=== PATIENT | male | born 1990 | race African-American/Black ===

== ENCOUNTER 2016-05-05 02:45 | Emergency (ER) | payer BC ==
[2016-05-05 03:35] LABS: Hematocrit 43 % (42-52); Hemoglobin 14.4 g/dl (14.0-18.0); Mean Corpuscular HGB Conc 34 g/dl (31-36); Mean Corpuscular Hemoglobin 31 pg (27-31); Mean Corpuscular Volume 92 fL (80-94); Mean Platelet Volume 8 um3 (7.4-10.4); Red Blood Count 4.67 10^6/ul (4.0-5.4); Red Cell Distribution Width 14 % (10.5-15); White Blood Count 5.7 10^3/ul (3.5-10.8)
[2016-05-05 03:49] LABS: Acetaminophen < 15 mcg/mL; Alcohol < 10 mg/dL (<10); Salicylate < 2.50 mg/dL (<30)
[2016-05-05 03:50] LABS: ALT 14 U/L (7-52); Albumin 4.3 g/dL (3.2-5.2); Alkaline Phosphatase 73 U/L (34-104); BUN/Creatinine Ratio 14.3 (8-20); Blood Urea Nitrogen 15 mg/dL (6-24); CO2 Carbon Dioxide 28 mmol/L (22-32); Calcium 10.1 mg/dL (8.6-10.3); Chloride 101 mmol/L (101-111); EGFR African American 112.6 (>60); EGFR Non-African American 87.5 (>60); Globulin 4.1 g/dL (2-4); Glucose 101 mg/dL (70-100); Sodium 135 mmol/L (133-145); Total Protein 8.4 g/dL (6.4-8.9)
[2016-05-05 03:52] LABS: AST 14 U/L (13-39); Anion Gap 6 mmol/L (2-11); Potassium 3.8 mmol/L (3.5-5.0)
[2016-05-05 04:42] LABS: TSH (Thyroid Stimulating Horm) 0.55 mcIU/mL (0.34-5.60)
--- NOTE | 2016-05-05 06:45 | ED ---
theresa Parisi Timothy, scribed for Jd Allen on 05/05/16 at 0301 . Psychiatric Complaint - HPI Summary HPI Summary: Travis Chopra is a 25 yo male presenting to [facility] with SI. Pt states "I want to , and I don't want to talk about it". He denies any plan. 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 His MHx includes asthma, ADHD, PTSD, schizophrenia, bipolar disorder, depression, anxiety, substance abuse, suicide attempt, ODD. He is a tobacco smoker, and uses heroin. - History Of Current Complaint Time Seen by Provider: 05/05/16 03:01 Hx Obtained From: Patient Onset/Duration: Gradual Onset Timing: Constant Severity Initially: Moderate Severity Currently: Moderate Character: Depressed Related History: Positive For: Prior Psychiatric Issues - Allergies/Home Medications Allergies/Adverse Reactions: Allergies Allergy/AdvReac Type Severity Reaction Status Date / Time No Known Allergies Allergy Verified 03/12/16 14:40 PMH/Surg Hx/FS Hx/Imm Hx Endocrine/Hematology History: Denies: Hx Anticoagulant Therapy, Hx Diabetes Cardiovascular History: Denies: Hx Hypertension Respiratory History: Reports: Hx Asthma - No treatment for "years" Psychiatric History: Reports: Hx Anxiety, Hx Attention Deficit Hyperactivity Disorder, Hx Depression, Hx Post Traumatic Stress Disorder, Hx Inpatient Treatment, Hx Community Mental Health Tx, Hx Schizophrenia, Hx Bipolar Disorder , Hx Suicide Attempt, Hx of Violent Episodes Against Others, Hx Substance Abuse , Other Psychiatric Issues/Disorders - ODD Denies: Hx Eating Disorder - Immunization History Date of Tetanus Vaccine: unable to obtain Date of Influenza Vaccine: unable to obtain Infectious Disease History: No Infectious Disease History: Denies: Traveled Outside the [place] in Last 30 Days - Family History Known Family History: Positive: Unknown - adopted - Social History Alcohol Use: None Alcohol Amount: drinks a couple of times per month Substance Use Type: Reports: Heroin Substance Use Comment - Amount & Last Used: 0200 05/05/16 Hx Tobacco Use: Yes Smoking Status (MU): Light Every Day Tobacco Smoker Type: Cigarettes Length of Time of Smoking/Using Tobacco: 1/2 ppd X 6 years Review of Systems Constitutional: Negative Eyes: Negative ENT: Negative Cardiovascular: Negative Respiratory: Negative Gastrointestinal: Negative Genitourinary: Negative Musculoskeletal: Negative Skin: Negative Neurological: Negative Positive: Depressed All Other Systems Reviewed And Are Negative: Yes Physical Exam Triage Information Reviewed: Yes Vital Signs On Initial Exam: Initial Vitals Temp Pulse Resp BP Pulse Ox 97.5 F 75 18 123/72 99 05/05/16 02:48 05/05/16 02:48 05/05/16 02:48 05/05/16 02:48 05/05/16 02:48 Vital Signs Reviewed: Yes Appearance: Positive: Well-Appearing, No Pain Distress, Well-Nourished Skin: Positive: Warm, Skin Color Reflects Adequate Perfusion, Dry Head/Face: Positive: Normal Head/Face Inspection Eyes: Positive: EOMI, RAMIRO ENT: Positive: Normal ENT inspection Neck: Positive: Supple, Nontender Respiratory/Lung Sounds: Positive: Clear to Auscultation, Breath Sounds Present Cardiovascular: Positive: RRR, Pulses are Symmetrical in both Upper and Lower Extremities Abdomen Description: Positive: Nontender, Soft Bowel Sounds: Positive: Present Musculoskeletal: Positive: Normal, Strength/ROM Intact Neurological: Positive: Normal, Sensory/Motor Intact, Alert, Oriented to Person Place, Time Psychiatric: Positive: Depressed - Yue Coma Scale Coma Scale Total: 15 Diagnostics - Vital Signs Vital Signs Temp Pulse Resp BP Pulse Ox 05/05/16 02:48 97.5 F 75 18 123/72 99 - Laboratory Lab Results: Lab Results 05/05/16 05/05/16 Range/Units 03:06 03:06 WBC 5.7 (3.5-10.8) 10^3/ul RBC 4.67 (4.0-5.4) 10^6/ul Hgb 14.4 (14.0-18.0) g/dl Hct 43 (42-52) % MCV 92 (80-94) fL MCH 31 (27-31) pg MCHC 34 (31-36) g/dl RDW 14 (10.5-15) % Plt Count 259 (150-450) 10^3/ul MPV 8 (7.4-10.4) um3 Neut % (Auto) 58.4 (38-83) % Lymph % (Auto) 28.9 (25-47) % Casey % (Auto) 10.8 H (1-9) % Eos % (Auto) 1.3 (0-6) % Baso % (Auto) 0.6 (0-2) % Absolute Neuts (auto) 3.4 (1.5-7.7) 10^3/ul Absolute Lymphs (auto) 1.7 (1.0-4.8) 10^3/ul Absolute Monos (auto) 0.6 (0-0.8) 10^3/ul Absolute Eos (auto) 0.1 (0-0.6) 10^3/ul Absolute Basos (auto) 0 (0-0.2) 10^3/ul Absolute Nucleated RBC 0.01 10^3/ul Nucleated RBC % 0.1 Sodium 135 (133-145) mmol/L Potassium 3.8 (3.5-5.0) mmol/L Chloride 101 (101-111) mmol/L Carbon Dioxide 28 (22-32) mmol/L Anion Gap 6 (2-11) mmol/L BUN 15 (6-24) mg/dL Creatinine 1.05 (0.67-1.17) mg/dL Est GFR ( Amer) 112.6 (>60) Est GFR (Non-Af Amer) 87.5 (>60) BUN/Creatinine Ratio 14.3 (8-20) Glucose 101 H (70-100) mg/dL Calcium 10.1 (8.6-10.3) mg/dL Total Bilirubin 0.30 (0.2-1.0) mg/dL AST 14 (13-39) U/L ALT 14 (7-52) U/L Alkaline Phosphatase 73 (34-104) U/L Total Protein 8.4 (6.4-8.9) g/dL Albumin 4.3 (3.2-5.2) g/dL Globulin 4.1 H (2-4) g/dL Albumin/Globulin Ratio 1.0 (1-3) TSH 0.55 (0.34-5.60) mcIU/mL Salicylates < 2.50 (<30) mg/dL Acetaminophen < 15 mcg/mL Serum Alcohol < 10 (<10) mg/dL Result Diagrams: 05/05/16 03:06 05/05/16 03:06 Lab Statement: Any lab studies that have been ordered have been reviewed, and results considered in the medical decision making process. Course/Dx - Course Assessment/Plan: Travis Chopra is a 25 yo male presenting to [facility] for SI. He is cleared for [facility] at 0617. He will be signed out to Dr. Diamond pending [facility]UE. - Differential Dx/Clinical Impression Provider Diagnosis: Suicidal ideation Discharge - Discharge Plan Condition: Stable Disposition: OTHER Discharge Disposition Comment: Sign out to Dr. Diamond pending [facility] Referrals: No Primary Care Phys,NOPCP [Primary Care Provider] - The documentation as recorded by the theresa coleman Timothy accurately reflects the service I personally performed and the decisions made by , Jd Allen.
[2016-05-05 07:53] LABS: Urine Bacteria Absent (Absent); Urine Bilirubin Negative (Negative); Urine Glucose Negative (Negative); Urine Nitrite Negative (Negative)
[2016-05-05 08:05] LABS: Benzodiazepine Urine Screen None Detected (None Detect)
[2016-05-05 08:53] VITALS: BP 125/87
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
== END 2016-05-05 11:34 | disposition home or self-care (01) ==
LOC: ED 02:45
DX: R45.851 Suicidal ideations (principal); F17.210 Nicotine dependence, cigarettes, uncomplicated
CPT/HCPCS: 36415; 80053; 80307; 80320; 80329; 81003; 81015; 84443; 85025; 99282; G0480

== ENCOUNTER 2016-05-15 12:08 | Inpatient (IN) | payer BC ==
[2016-05-15] MEDS ORDERED: LORazepam INJ* 2 MG/ML 1 ML VIAL IM ONE (12:45)
[2016-05-15] MEDS ORDERED: diPHENhydraMINE IV* 50 MG/ML 1 ml VIAL (BENADRYL) IM ONE (12:45)
[2016-05-15] MEDS ORDERED: Haloperidol INJ IV/IM* 5 MG/ML AMP IM ONE (12:45)
[2016-05-15 13:15] LABS: Hematocrit 46 % (42-52); Hemoglobin 15.5 g/dl (14.0-18.0); Mean Corpuscular HGB Conc 34 g/dl (31-36); Mean Corpuscular Hemoglobin 31 pg (27-31); Mean Corpuscular Volume 91 fL (80-94); Mean Platelet Volume 8 um3 (7.4-10.4); Red Cell Distribution Width 14 % (10.5-15); White Blood Count 5.7 10^3/ul (3.5-10.8)
[2016-05-15 13:18] LABS: Urine Bilirubin Negative (Negative); Urine Glucose Negative (Negative); Urine Nitrite Negative (Negative)
[2016-05-15 13:26] LABS: ALT 17 U/L (7-52); AST 19 U/L (13-39); Albumin 4.8 g/dL (3.2-5.2); Alkaline Phosphatase 80 U/L (34-104); Anion Gap 8 mmol/L (2-11); BUN/Creatinine Ratio 7.7 (8-20); Blood Urea Nitrogen 8 mg/dL (6-24); CO2 Carbon Dioxide 26 mmol/L (22-32); Calcium 10.6 mg/dL (8.6-10.3); Chloride 103 mmol/L (101-111); EGFR African American 113.8 (>60); EGFR Non-African American 88.5 (>60); Globulin 4.2 g/dL (2-4); Glucose 83 mg/dL (70-100); Sodium 137 mmol/L (133-145)
[2016-05-15 13:56] LABS: Acetaminophen < 15 mcg/mL; Alcohol < 10 mg/dL (<10); Salicylate < 2.50 mg/dL (<30)
[2016-05-15 14:06] LABS: TSH (Thyroid Stimulating Horm) 0.72 mcIU/mL (0.34-5.60)
[2016-05-15 15:46] LABS: Benzodiazepine Urine Screen None Detected (None Detect)
[2016-05-16] MEDS: Vitamin THERAPEUTIC TAB PO SCH (09:50)
--- NOTE | 2016-05-16 20:43 | HP ---
HISTORY AND PHYSICAL: DATE OF ADMISSION: JUSTIFYING FOR ADMISSION: The patient is in need of 24-hour supervision and care secondary to suici justin ideations voiced within 72 hours of admission day. CHIEF COMPLAINT: "Get the fuck out of here." HISTORY OF PRESENT ILLNESS: The patient is a 25-year-old single -Italian male with a histor y of chronic polysubstance abuse who arrived at our hospital via the police after his parents called 911 when he had taken rat poisoning out of their cupboard and threatened to inject it into one of h is veins in a suicide attempt. The patient is well known to me having been on my service in [facility] 2015. At that time, he was stabilized by detoxifying him off of heroin and other opioids. It is notable that he does not experience affective problems when he is clean and sober from drugs. At any rate, at the time he was referred to the [facility] in [place], [place]. Unfortunately, he only lasted there 6 days before signing himself out against medical advice stating that he was craving heroin. He quickly relapsed on heroin and since then, has been using no t only opioids, but also bath salts, amphetamine pills, cocaine, cannabis, "anything I can get my ellington nds on." When asked why he might want to end his life, he does indicate that his parents both have been diagnosed with cancer and he cannot deal with their mortality and feels he would be better off dying before they do. It is notable that he was also in our emergency room on 05/05/16 with similar presentation; however, at that time, I was able to evaluate him in our emergency room and he made i t clear that he was not interested in drugs abuse recovery and therefore, I did not feel that hospit alization would be of any benefit to him. He has not been following up with any outpatient substanc e abuse treatment in the community. He lives in a trailer outside of his parents home because they are afraid to let him in given his tendency to steal items from their house to sell for drugs. At t his point, the patient is found lying down in his bed where he has remained all day. He is irritabl e, angry, hostile, and unwilling to participate with this interview. PAST MEDICAL HISTORY: Noncontributory. PAST PSYCHIATRIC HISTORY: His last hospitalization here was in February of 2016. Previous to this, he has hospitalizations in 2014, 2014, 2013, and two admissions in 2008. His past diagnoses include substance abuse mood disorder and substance abuse psychotic disorder. Past medication trials inclu de Abilify, Risperdal, Concerta, Strattera, and Wellbutrin. Nothing has been helpful according to t he family. The patient essentially has chronic suicidal ideations. According to the records, most of his suicidality has been fairly malingered. FAMILY PSYCHIATRIC HISTORY: The biological mother has had a history of substance abuse problems her self. SOCIAL HISTORY: The patient is currently homeless. He has had multiple incarcerations and was rece ntly in half-way for 8 months. He was adopted and raised in [place], [place]. Previously reported zachary g 10 siblings. He was educated with an IEP in special education to about the 10th or 11th grade, bu t he has not received a diploma or a GED. He does have a 4-year-old son who lives with maternal gra ndparents. He has been minimally in contact with this child. In the past, he has worked with [employer]. Most recently, [facility] has been homeless [facility] SUBSTANCE ABUSE HISTORY: The patient typically does cannabis, but has also used alcohol, bath salts , synthetic marijuana, cocaine, and heroin. He will often use IV drugs. He has had outpatient subs tance abuse counseling as well as inpatient treatment most recently at the [facility] in [place]. REVIEW OF SYSTEMS: The patient denies headache or double vision. He denies sore throat, cough, с[address] pain, or difficulty breathing. He denies abdominal pain, nausea, vomiting, although he does comp ami of mild diarrhea secondary to drug withdrawal. He denies difficulty ambulating, rashes, enlarg ed lymph nodes, fevers, or changes in weight. PHYSICAL EXAMINATION VITAL SIGNS: Blood pressure 99/52, heart rate 49, temperature 98.7 degrees Fahrenheit, respiratory rate is 16, and oxygen saturations are 97% on room air. HEENT: Head is normocephalic, atraumatic. NECK: Supple. CHEST: Clear to auscultation bilaterally. ABDOMEN: Soft and nontender. MUSCULOSKELETAL: Exam reveals full range of motion with all 4 extremities. NEUROLOGICAL: He is grossly intact. SKIN: Warm and dry. MENTAL STATUS EXAM: The patient is a healthy-appearing, dark skinned, mid 20s, -Italian ma le with apparently normal hygiene. He is in hospital scrub, lying down in a prone position. He has normal psychomotor activity. Eye contact is poor. He is minimally cooperative. Speech is terse a nd not spontaneous. Mood is described as "bad." Affect is constricted, dysphoric, irritable. Thou ght process is impoverished. Thought content is significant for wishes. There are no active suicidal ideations. There are no homicidal or paranoid ideations. Sensorium is clear. He is alert and oriented x3. Insight and judgment is poor and impulse control is tenuous. LABORATORY DATA: Complete blood count is within normal limits. Complete metabolic panel is similar ly within normal limits. TSH is normal at 0.72. Urinalysis is within normal limits. Urine drug sc reen is positive for opioids, cocaine, and cannabis. DIAGNOSES: As follow: Smackover I: Opioid-induced mood disorder, opioid use disorder, cocaine use disorder, cannabis use diso rder, rule out malingering. Smackover II: Antisocial personality traits. Smackover III: None. Smackover IV: Moira re legal, primary, support, housing stressors. Smackover V: At this time is 47. IMPRESSION: The patient is a 25-year-old substance abusing sociopathic male who has been kicked out of his parents' house, who now is being sent via the police after making a threat to his parents th at he would inject rat poisoning in an effort to hurt himself. It is clear at this point that he is not only lacking a place to stay, but has no money to procure drugs and is going through opioid wit hdrawal. In the recent past, he has been unwilling to follow through with definitive substance abus e treatment and it is unclear whether he is or is not at this time. I think we will monitor him for symptoms of withdrawal and use p.r.n. Thorazine if he starts becoming agitated. I am not sure what we can do given the chronic nature of his suicidality and his insistence on continued drug use. If he is, however, willing to go to rehab, then we would certainly facilitate this. PLAN: The patient is admitted to the adult behavioral health unit where he is placed on q.15-minute checks for his own safety. We will continue to monitor him and keep him safe. Essentially it woul d be up to him whether he wants to pursue inpatient substance abuse treatment or not. If he is not interested in this, then we will likely discharge him to a local [facility]ci. [id number]/CPS #: [id number]
[2016-05-16] MEDS: Acetaminophen TAB* 325 MG PO PRN (21:06)
[2016-05-16] MEDS: chlorproMAZINE TAB* 100 MG PO PRN (21:06)
[2016-05-17] MEDS: chlorproMAZINE TAB* 100 MG PO PRN ×2 (08:42→18:01)
[2016-05-17] MEDS: Acetaminophen TAB* 325 MG PO PRN (08:43)
[2016-05-17] MEDS: Vitamin THERAPEUTIC TAB PO SCH (08:43)
[2016-05-17] MEDS ORDERED: Nicotine Inhaler* 10 MG AMP INH PRN (17:28)
[2016-05-17] MEDS ORDERED: Mouth Piece, Nicotine* 1 EACH CARTRIDGE INH ONE (17:30)
[2016-05-18] MEDS: chlorproMAZINE TAB* 100 MG PO PRN ×2 (09:19→15:39)
[2016-05-18] MEDS: Vitamin THERAPEUTIC TAB PO SCH (10:49)
--- NOTE | 2016-05-18 12:11 | PN ---
Subjective - Subjective Service Type: 75248 Hosp care 25 min moderate complexity Subjective: Shira reports feeling better than at admission and says he feels good about being alive again. He tells me he did contemplate injecting rat poison prior to admission, over a brief period only, and the poison had been available. He denied buying it for the purpose of an attempt, denies planning ahead for it , and says he feels he was not terribly close to acting on it. He said it was precipitated by a bad nights sleep and a recent arrest by law enforcement. He reports principally using heroin, but also mixing in other drugs. He denies any felt need for psychiatric medications. He notes subjective progress through withdrawal, and said his goals for hospitalization are met. He submitted a "72 hour letter" but made clear with me it is not a demand for immediate release - he would like to go home soon but accepted recommendation for consolidating gains, and said he was "fine chilling here" - he said he would not go to groups, and he asked for assistance with laundry. I made motivational interventions. He assesses sobriety as a priority, and recognizes deficits in his capacity to attain it, but is somewhat dismissive of help and structured treatment. He says his plan is to continue using drugs until later this months, when he starts a residential term. In residential he said he may have access to heroin, but if he doesn't it will be a starting point for sobriety. Objective - Appearance Appearance: Well Developed/Nourished Dysmorphic Features: Yes Hygiene: Normal Grooming: Well Kept - Behavior Psychomotor Activities: Normal - Attitude and Relatedness Attitude and Relatedness: Superficially Cooperative - casually related Eye Contact: Good - Speech Quality: Unpressured Latencies: Normal Quantity: Appropriate - Mood Patient's Decription of Mood: "Irritable" - Affect Observed Affect: Labile Affect Consistent with: Euthymia - Thought Process Patient's Thought Process: Coherent, Goal Directed Thought Content: No Passive Wish, No Suicidal Planning, No Homicidal Ideation, No Paranoid Ideation - Sensorium Experiencing Hallucinations: No, Sensorium is Clear - Level of Consciousness Level of Consciousness: Alert - Impulse Control Impulse Control: Intact - Insight and Judgement Insight and Judgement: Fair Assessment - Assessment Merits Inpatient Hospitalization: To Initiate Treatment, For Ongoing Evaluation , Consolidate Improvements, For Discharge Planning, Pending Safe DC Plan Inpatient DSM-IV Dx: Opioid (polysubstance) use disorder with induced mood symptoms with onset during intoxication; historic diagnosis of concern for intellectual disability; chronic mood disorder; chronic psychotic vulnerability ; also consider personality disorder traits. Clinical Impression: Welpte-zvpph-przy-old with a history of chronic affect dysregulation, violence and suicidal behavior, chronic substance use disorders and consideration for intellectual disability. He was admitted due to concern over suicidal behavior (preparing injection of Rat poison) in the subacute setting of uncontrolled substance use and ongoing legal problems. Stabilized here. Does not have symptoms of a major mood episode, and is not psychotic, is no longer impaired. Is safe on checks, free of ongoing suicidal ideation. Has not required medical detoxification. Was again in a clear substance induced crisis. Anticipate discharge tomorrow, consolidating improvements. Prognosis is poor due to high risk of ongoing drug use. Rehabilitation programming would be appropriate but would require voluntary participation. Plan - Plan Treatment Plan: Name: SHIRA SWANSON Birthdate: 1990 [id number] Medications: Current Medications Acetaminophen (Tylenol Tab*) 650 mg PO Q4H PRN PRN Reason: PAIN or TEMP > 101 F Last Admin: 05/17/16 08:43 Dose: 650 mg Al Hydrox/Mg Hydrox/Simethicone (Maalox Plus*) 30 ml PO Q4H PRN PRN Reason: INDIGESTION Chlorpromazine HCl (Thorazine Tab*) 100 mg PO Q6H PRN PRN Reason: AGITATION Last Admin: 05/18/16 09:19 Dose: 100 mg Multivitamins (Theragran Tab*) 1 tab PO DAILY ASHLEY Last Admin: 05/18/16 10:49 Dose: 1 tab Nicotine (Nicotine Inhaler*) 10 mg INH Q2H PRN PRN Reason: CRAVINGS Last Admin: 05/17/16 18:03 Dose: 10 mg - Discharge Plan Discharge Plan: Drug/Alcohol Rehab
[2016-05-19] MEDS: Al Hydrox/Mg Hydrox/Simet LIQ* 30 ML UDC PO PRN ×3 (04:20→12:13)
[2016-05-19] MEDS: chlorproMAZINE TAB* 100 MG PO PRN (07:25)
[2016-05-19 07:26] VITALS: BP 136/74
[2016-05-19] MEDS: Vitamin THERAPEUTIC TAB PO SCH (08:33)
--- NOTE | 2016-05-19 12:16 | DS ---
DISCHARGE SUMMARY: DATE OF ADMISSION: 05/16/16 DATE OF DISCHARGE: 05/19/16 DISCHARGE DIAGNOSES: As follows: [place] I: Opioid-induced mood disorder, opioid use disorder, cocaine use disorder, cannabis use diso rder, rule out malingering. [place] II: Antisocial personality traits. [place] III: None. [place] IV: Sev ere legal, primary, support, and housing stressors. Ed[place] V: At the time of admission was 47 and at the time of discharge is 62. CONDITION AT THE TIME OF DISCHARGE: Improved. The patient's initial crisis, which was clearly drug induced is now resolved. He is reporting that he feels good about being alive again. He is future oriented, stating that he will be serving a mandatory fci sentence soon and will need to be sober because of that. He is willing to follow up with outpatient treatment and his appointments are in p lace including an appointment as soon as tomorrow at [facility]. The kristina ent steadfastly denies suicidal ideations stating that even prior to hospitalization, he was not nec essarily serious about suicide. He has signed a release against medical advice and we have no legal justification to keep him any further. MENTAL STATUS EXAM: At the time of discharge, the patient is a healthy appearing, dark skinned, mid 20s -German male wearing a T-shirt and jeans with good hygiene. He has been social on the unit, joking with peers, smiling. He has normal psychomotor activity. Eye contact is fair. He is cooperative. Speech has normal rate, tone, and volume. Mood is euthymic with a bright affect. Th ought process is linear, goal directed. Thought content is significant for his desire to be dischar ged from the hospital. He is denying suicidal or homicidal ideations. He denies auditory or visual hallucinations. Insight is somewhat limited given the fact that he is telling me that he will denise nue to abuse heroin after discharge and he is denying substance abuse treatment at this time. Cogni tively, he is awake and alert with what would appear to be an average intellect. DISCHARGE INSTRUCTIONS: To the patient are as follows: A. Medications, none. B. Diet is regular. C. Activities as tolerated. The patient is strongly en couraged to abstain from tobacco products; however, he is declining the offer of continued nicotine replacement therapy in the community setting, indicating his preference to continue smoking cigarett es for the time being. Similarly, he is advised to discontinue illicit substance abuse; however, he is similarly not interested in substance abuse treatment at this time. D. Followup care. The kristina ent has an appointment with Rani Duenas at [facility] on May 20 a t 1:45 p.m. He also has an appointment with Dr. Olena Gamino at [facility], rajwinder silver is on June 10 at 10 a.m. It should be noted that we have made multiple offers to re radha him to substance abuse treatment both on inpatient and outpatient varieties; however, he is stea dfastly declining these. HOSPITAL COURSE: PART-A Reason for admission: The patient is a 25-year-old single -German male with a history of chronic polysubstance abuse who arrived at our hospital via the police after his parents called 911 when he had taken rat poisoning out of the cupboard and threatened to inject it into one of his veins in a suicide attempt. The patient is well known to me, having been on my se rvice in February 2016. At that time, he was stabilized by detoxifying him off heroin and other opi oids. It is notable that he does not experience affective problems when he is clean and sober from drugs. At any rate, at that time in February, he was referred to the [facility] [place], [place]. Unfortunately, he only lasted there 6 days before signing himself out against me dical advice stating that he was craving heroin. He quickly relapsed on heroin and since then, has been using not only opioids, but also bath salts, amphetamine pills, cocaine, and cannabis, "anythin g I can get my hands on." When asked why he might want to end his life, he does indicate that his p arents both have been diagnosed with cancer and he cannot deal with their mortality and feels that h e would be better off dying before they do. It is notable that he was also in our emergency room on 05/05/16 with a similar presentation; however, at that time I was able to evaluate him in our emerg ency room and he made it clear that he was not interested in substance abuse recovery and therefore, we did not feel that hospitalization would be of any benefit to him. He has not been following up with any outpatient substance abuse treatment in the community. He lives in a trailer outside of hi s parents' home because they are afraid of letting him inside the residence given his tendency to st eal items from their house in order to sell for drug money. At this point, the patient was found ly ing down in his bed where he has remained all day. He is irritable, angry, hostile, and unwilling t o participate in this interview. PART-B Psychiatric treatment rendered: The patient was admitted to the hospital and placed on q.30 minute checks for his own safety. He almost immediately signed paperwork requesting discharge from the hospital indicating that he was no longer experiencing suicidality. We did allow him some time to detoxify from opioids; however, no medication therapy was needed. The patient refused to accept recommendations for referral to a substance abuse facility indicating that he was not interested in stopping drug use at this point. He is future oriented indicating that he would like to serve a [facility] fci sentence at the [facility] fci later this month and then he will apply for classes in the summer time. He was willing to accept a referral to [facility]. At this poi nt, he does not show evidence of a major mood episode. He is not psychotic. He is no longer impair ed. He is safe on all checks and free of ongoing suicidal ideations. He has not required medical de toxification and he is clear from his substance- induced crisis. We are currently discharging him. I would say that his prognosis is poor due to the high risk of ongoing drug use. Rehabilitation se [facility] would be appropriate, but it would require his voluntary participation which he is unwilling to consent to at this time. Therefore, he is discharged back to the community with [facility]. [id number]/[facility] #: [id number]
--- NOTE | 2016-06-09 11:13 | ED ---
Ailin, DoctorRuchi, scribed for Lenny Zaidi MD on 05/15/16 at 1403 . Psychiatric Complaint - HPI Summary HPI Summary: 25 year old male arrived to [facility] on for "trying to inject rat poison," reported by his family. Patient is a heroin addict, is not currently taking Suboxone. HPI limited due to patient's unwillingness to answer physician' s questions. - History Of Current Complaint Chief Complaint: EDMentalHealth Time Seen by Provider: 05/15/16 12:33 Hx Obtained From: Patient Hx From Patient Unobtainable Due To: Other - Patient's unwillingness to answer physician's questions Related History: Positive For: Prior Psychiatric Issues, Drug Abuse Counseling Has Suicidal: Reports: With A Plan - reportedly tried to inject rat poison - Allergies/Home Medications Allergies/Adverse Reactions: Allergies Allergy/AdvReac Type Severity Reaction Status Date / Time No Known Allergies Allergy Verified 03/12/16 14:40 PMH/Surg Hx/FS Hx/Imm Hx Endocrine/Hematology History: Denies: Hx Anticoagulant Therapy, Hx Diabetes Cardiovascular History: Denies: Hx Hypertension Respiratory History: Reports: Hx Asthma - No treatment for "years" Psychiatric History: Reports: Hx Anxiety, Hx Attention Deficit Hyperactivity Disorder, Hx Depression, Hx Post Traumatic Stress Disorder, Hx Inpatient Treatment, Hx Community Mental Health Tx, Hx Schizophrenia, Hx Bipolar Disorder , Hx Suicide Attempt, Hx of Violent Episodes Against Others, Hx Substance Abuse , Other Psychiatric Issues/Disorders - ODD Denies: Hx Eating Disorder - Immunization History Date of Tetanus Vaccine: unable to obtain Date of Influenza Vaccine: unable to obtain Infectious Disease History: No Infectious Disease History: Denies: Traveled Outside the US in Last 30 Days - Family History Known Family History: Positive: None - adopted, Unknown - adopted - Social History Alcohol Use: None Alcohol Amount: drinks a couple of times per month Hx Substance Use: Yes Substance Use Type: Reports: Heroin Substance Use Comment - Amount & Last Used: $20/day IV heroin for the past month , prior to that he was clean for 8 mo. Hx Tobacco Use: Yes Smoking Status (MU): Light Every Day Tobacco Smoker Type: Cigarettes Length of Time of Smoking/Using Tobacco: 1/2 ppd X 6 years Review of Systems - ROS Summary Review of Systems Summary: Full ROS unobtainable due to patient's unwillingness to answer questions Negative: Fever Positive: Other - unwilling to answer questions All Other Systems Reviewed And Are Negative: No Physical Exam - Summary Physical Exam Summary: PE limited due to patient's unwillingness to answer physician's questions Triage Information Reviewed: Yes Vital Signs On Initial Exam: Initial Vitals Temp Pulse Resp BP Pulse Ox 98.2 F 54 16 114/56 100 05/15/16 12:31 05/15/16 12:31 05/15/16 12:31 05/15/16 12:31 05/15/16 12:31 Vital Signs Reviewed: Yes Appearance: Positive: Well-Appearing, No Pain Distress Skin: Positive: Warm, Skin Color Reflects Adequate Perfusion, Dry Head/Face: Positive: Normal Head/Face Inspection Eyes: Positive: Normal ENT: Positive: Normal ENT inspection Psychiatric: Positive: Patient Uncooperative for Exam Diagnostics - Vital Signs Vital Signs Temp Pulse Resp BP Pulse Ox 05/15/16 12:31 98.2 F 54 16 114/56 100 - Laboratory Lab Results: Lab Results 05/15/16 05/15/16 05/15/16 Range/Units 12:40 13:00 13:00 WBC 5.7 (3.5-10.8) 10^3/ul RBC 5.00 (4.0-5.4) 10^6/ul Hgb 15.5 (14.0-18.0) g/dl Hct 46 (42-52) % MCV 91 (80-94) fL MCH 31 (27-31) pg MCHC 34 (31-36) g/dl RDW 14 (10.5-15) % Plt Count 260 (150-450) 10^3/ul MPV 8 (7.4-10.4) um3 Neut % (Auto) 47.0 (38-83) % Lymph % (Auto) 41.7 (25-47) % Mason % (Auto) 9.7 H (1-9) % Eos % (Auto) 1.1 (0-6) % Baso % (Auto) 0.5 (0-2) % Absolute Neuts (auto) 2.7 (1.5-7.7) 10^3/ul Absolute Lymphs (auto) 2.4 (1.0-4.8) 10^3/ul Absolute Monos (auto) 0.6 (0-0.8) 10^3/ul Absolute Eos (auto) 0.1 (0-0.6) 10^3/ul Absolute Basos (auto) 0 (0-0.2) 10^3/ul Absolute Nucleated RBC 0 10^3/ul Nucleated RBC % 0 INR (Anticoag Therapy) 1.00 (0.89-1.11) Sodium (133-145) mmol/L Potassium (3.5-5.0) mmol/L Chloride (101-111) mmol/L Carbon Dioxide (22-32) mmol/L Anion Gap (2-11) mmol/L BUN (6-24) mg/dL Creatinine (0.67-1.17) mg/dL Est GFR ( Amer) (>60) Est GFR (Non-Af Amer) (>60) BUN/Creatinine Ratio (8-20) Glucose (70-100) mg/dL Calcium (8.6-10.3) mg/dL Total Bilirubin (0.2-1.0) mg/dL AST (13-39) U/L ALT (7-52) U/L Alkaline Phosphatase (34-104) U/L Total Protein (6.4-8.9) g/dL Albumin (3.2-5.2) g/dL Globulin (2-4) g/dL Albumin/Globulin Ratio (1-3) TSH (0.34-5.60) mcIU/mL Urine Color Urine Appearance Urine pH (5-9) Ur Specific [place] (1.010-1.030) Urine Protein (Negative) Urine Ketones (Negative) Urine Blood (Negative) Urine Nitrate (Negative) Urine Bilirubin (Negative) Urine Urobilinogen (Negative) Ur Leukocyte Esterase (Negative) Urine Glucose (Negative) Salicylates (<30) mg/dL Urine Opiates Screen Presumptive positive H (None Detect) Acetaminophen mcg/mL Ur Barbiturates Screen None detected (None Detect) Ur Phencyclidine Scrn None detected (None Detect) Ur Amphetamines Screen None detected (None Detect) U Benzodiazepines Scrn None detected (None Detect) Urine Cocaine Screen Presumptive positive H (None Detect) U Cannabinoids Screen Presumptive positive H (None Detect) Serum Alcohol (<10) mg/dL 05/15/16 05/15/16 Range/Units 13:00 13:00 WBC (3.5-10.8) 10^3/ul RBC (4.0-5.4) 10^6/ul Hgb (14.0-18.0) g/dl Hct (42-52) % MCV (80-94) fL MCH (27-31) pg MCHC (31-36) g/dl RDW (10.5-15) % Plt Count (150-450) 10^3/ul MPV (7.4-10.4) um3 Neut % (Auto) (38-83) % Lymph % (Auto) (25-47) % Mason % (Auto) (1-9) % Eos % (Auto) (0-6) % Baso % (Auto) (0-2) % Absolute Neuts (auto) (1.5-7.7) 10^3/ul Absolute Lymphs (auto) (1.0-4.8) 10^3/ul Absolute Monos (auto) (0-0.8) 10^3/ul Absolute Eos (auto) (0-0.6) 10^3/ul Absolute Basos (auto) (0-0.2) 10^3/ul Absolute Nucleated RBC 10^3/ul Nucleated RBC % INR (Anticoag Therapy) (0.89-1.11) Sodium 137 (133-145) mmol/L Potassium 4.0 (3.5-5.0) mmol/L Chloride 103 (101-111) mmol/L Carbon Dioxide 26 (22-32) mmol/L Anion Gap 8 (2-11) mmol/L BUN 8 (6-24) mg/dL Creatinine 1.04 (0.67-1.17) mg/dL Est GFR ( Amer) 113.8 (>60) Est GFR (Non-Af Amer) 88.5 (>60) BUN/Creatinine Ratio 7.7 L (8-20) Glucose 83 (70-100) mg/dL Calcium 10.6 H (8.6-10.3) mg/dL Total Bilirubin 0.50 (0.2-1.0) mg/dL AST 19 (13-39) U/L ALT 17 (7-52) U/L Alkaline Phosphatase 80 (34-104) U/L Total Protein 9.0 H (6.4-8.9) g/dL Albumin 4.8 (3.2-5.2) g/dL Globulin 4.2 H (2-4) g/dL Albumin/Globulin Ratio 1.1 (1-3) TSH 0.72 (0.34-5.60) mcIU/mL Urine Color Yellow Urine Appearance Clear Urine pH 5.0 (5-9) Ur Specific [place] 1.014 (1.010-1.030) Urine Protein Negative (Negative) Urine Ketones Negative (Negative) Urine Blood Negative (Negative) Urine Nitrate Negative (Negative) Urine Bilirubin Negative (Negative) Urine Urobilinogen Negative (Negative) Ur Leukocyte Esterase Negative (Negative) Urine Glucose Negative (Negative) Salicylates < 2.50 (<30) mg/dL Urine Opiates Screen (None Detect) Acetaminophen < 15 mcg/mL Ur Barbiturates Screen (None Detect) Ur Phencyclidine Scrn (None Detect) Ur Amphetamines Screen (None Detect) U Benzodiazepines Scrn (None Detect) Urine Cocaine Screen (None Detect) U Cannabinoids Screen (None Detect) Serum Alcohol < 10 (<10) mg/dL Result Diagrams: 05/15/16 13:00 05/15/16 13:00 Lab Statement: Any lab studies that have been ordered have been reviewed, and results considered in the medical decision making process. Course/Dx - Differential Dx/Clinical Impression Provider Diagnosis: Personality disorder - Physician Notifications Instructed by Provider To: Admit As Inpatient Patient Is Medically Stable For: Psych Evaluation Discharge - Discharge Plan Condition: Improved Disposition: OTHER Discharge Disposition Comment: Pending mental health evaluation The documentation as recorded by the Doctor coleman Tahera accurately reflects the service I personally performed and the decisions made by me, Lenny Zaidi MD.
== END 2016-05-19 12:30 | disposition home or self-care (01) | DRG 773 ==
LOC: ED 12:08 → BSU 05-16 00:46
PROVIDERS: ADMIT Psychiatry & Neurology Psychiatry; ATTEND Psychiatry & Neurology Psychiatry
DX: F11.14 Opioid abuse with opioid-induced mood disorder (principal); R45.851 Suicidal ideations; F14.10 Cocaine abuse, uncomplicated; F12.10 Cannabis abuse, uncomplicated; F17.210 Nicotine dependence, cigarettes, uncomplicated; Z81.3 Family history of other psychoactive substance abuse and dependence
CPT/HCPCS: 36415; 80053; 80307; 80320; 80329; 81003; 84443; 85025; 85610; 99222; 99232; 99238; A9270-GY; G0480; J1200; J1630; J2060

== ENCOUNTER 2016-07-06 12:27 | Inpatient (IN) | payer BC ==
[2016-07-06] MEDS ORDERED: HYDROmorphone* 1 MG/ML 1 ML SYR IV ONE ×2 (13:41→17:22)
[2016-07-06] MEDS ORDERED: NS 0.9% 1000 ML* 2,000 ML IV ONE (13:41)
[2016-07-06] MEDS ORDERED: Ondansetron INJ* 2 MG/ML VIAL IV ONE (13:42)
--- NOTE | 2016-07-06 14:03 | RAD ---
Indication: Back pain. History of asthma. Tobacco use. Comparison: None. Technique: Upright AP 1345 hours Report: Clear lungs and pleural spaces. Negative for pneumothorax. The heart, pulmonary vasculature, and mediastinal contours are unremarkable. Unremarkable osseous structures and soft tissue contours. IMPRESSION: No evidence for acute intrathoracic disease.
[2016-07-06] MEDS ORDERED: HYDROmorphone* 2 MG/ML 1 ML SYR IV SLOW PU ONE (15:35)
[2016-07-06] MEDS ORDERED: LORazepam INJ* 2 MG/ML 1 ML VIAL IV PUSH ONE ×2 (15:38→20:49)
[2016-07-06 15:58] LABS: Hematocrit 38 % (42-52); Hemoglobin 12.8 g/dl (14.0-18.0); Mean Corpuscular HGB Conc 34 g/dl (31-36); Mean Corpuscular Hemoglobin 30 pg (27-31); Mean Corpuscular Volume 89 fL (80-94); Mean Platelet Volume 7 um3 (7.4-10.4); Red Cell Distribution Width 14 % (10.5-15); White Blood Count 13.1 10^3/ul (3.5-10.8)
[2016-07-06 16:19] LABS: Albumin 3.7 g/dL (3.2-5.2); BUN/Creatinine Ratio 9.3 (8-20); C Reactive Protein 223.27 mg/L (< 5.00); Calcium 9.7 mg/dL (8.6-10.3); EGFR African American 123.3 (>60); EGFR Non-African American 95.9 (>60); Potassium 4.3 mmol/L (3.5-5.0); Total Bilirubin 0.4 mg/dL (0.2-1.0); Total Protein 8.7 g/dL (6.4-8.9)
--- NOTE | 2016-07-06 16:22 | RAD ---
HISTORY: Back pain, intermittent fevers, history of IVDA COMPARISONS: None TECHNIQUE: The following sequences were obtained of the lumbar spine: Sagittal and axial T1- and T2-weighted images, coronal T2-weighted images, and sagittal STIR images. FINDINGS: SPINAL CORD, CONUS, AND CAUDA EQUINA: The visualized spinal cord, conus, and cauda equina are normal in caliber, position, and signal intensity. ALIGNMENT: There is a mild extra scoliotic curvature of the spine. VERTEBRAL BODIES: The bones are normal in signal intensity. JOINTS: Unremarkable MUSCULATURE: Unremarkable INTERVERTEBRAL DISCS: The intervertebral discs are normal in height and T2 signal AXIAL IMAGES: T12-L1: 12 L1-L2: There is no disc herniation, spinal stenosis, or neuroforaminal narrowing. L2-L3: There is no disc herniation, spinal stenosis, or neuroforaminal narrowing. L3-L4: There is no disc herniation, spinal stenosis, or neuroforaminal narrowing. L4-L5: There is no disc herniation, spinal stenosis, or neuroforaminal narrowing. L5-S1: There is no disc herniation, spinal stenosis, or neuroforaminal narrowing. SOFT TISSUES: The visualized soft tissues of the abdomen are unremarkable. OTHER: None. IMPRESSION: MILD SCOLIOSIS. OTHERWISE UNREMARKABLE MRI OF THE LUMBAR SPINE. THERE ARE NO APPRECIABLE EPIDURAL FLUID COLLECTIONS. THERE IS NO BONE EDEMA OR ENDPLATE IRREGULARITY TO SUGGEST OSTEOMYELITIS/DISCITIS
[2016-07-06] MEDS ORDERED: Cefepime(*) 2 GM in NS 0.9% 50 ML* 50 ML IVPB ONE (17:22)
[2016-07-06] MEDS ORDERED: NS 0.9% 1000 ML* 1,000 ML IV ONE (17:22)
--- NOTE | 2016-07-06 17:28 | ED ---
I, Mandeep,Lefty, scribed for Dawn Ribeiro MD on 07/06/16 at 1338 . Back Pain - HPI Summary HPI Summary: This 25 y/o male presents to ED for acute on chronic back pain since 5 weeks ago but worse since a week ago. Positive subjective fever. Pt is homeless, and he initially dismissed pain due to frequent sleeping in "uncomfortable position ". PMHx includes IVDA with methadone treatment. Pt states that he has been clean , and that his last dose of methadone was yesterday at [facility]. He has a bed at [facility] starting tomorrow. He was evaluated in methadone clinic for his back pain and had X-ray taken. No MRI has been taken. - History of Current Complaint Chief Complaint: EDBackInjuryPain Stated Complaint: BACK PAIN Hx Obtained From: Patient, Family/Airline Pilot/First Officer, Medical Records Onset/Duration: Gradual Onset, Lasting Weeks, Still Present Timing: Intermittent Back Pain Location: Is Discrete @ - lower back pain Pain Intensity: 7 Pain Scale Used: 0-10 Numeric Character: Spasmodic Aggravating Symptom(s): Movement Alleviating Symptom(s): Rest Associated Signs And Symptoms: Positive: Fever - subjective fever - Allergies/Home Medications Allergies/Adverse Reactions: Allergies Allergy/AdvReac Type Severity Reaction Status Date / Time No Known Allergies Allergy Verified 03/12/16 14:40 PMH/Surg Hx/FS Hx/Imm Hx Endocrine/Hematology History: Denies: Hx Anticoagulant Therapy, Hx Diabetes Cardiovascular History: Denies: Hx Hypertension Respiratory History: Reports: Hx Asthma - No treatment for "years" Psychiatric History: Reports: Hx Anxiety, Hx Attention Deficit Hyperactivity Disorder, Hx Depression, Hx Post Traumatic Stress Disorder, Hx Inpatient Treatment, Hx Community Mental Health Tx, Hx Schizophrenia, Hx Bipolar Disorder , Hx Suicide Attempt, Hx of Violent Episodes Against Others, Hx Substance Abuse , Other Psychiatric Issues/Disorders - ODD Denies: Hx Eating Disorder - Immunization History Date of Tetanus Vaccine: unable to obtain Date of Influenza Vaccine: unable to obtain Infectious Disease History: Denies: Traveled Outside the US in Last 30 Days - Family History Known Family History: Positive: Unknown - adopted - Social History Alcohol Use: None Alcohol Amount: drinks a couple of times per month Hx Substance Use: Yes Substance Use Type: Reports: Heroin Substance Use Comment - Amount & Last Used: $20/day IV heroin. Pt states that he has been clean for unspecific time Hx Tobacco Use: Yes Smoking Status (MU): Light Every Day Tobacco Smoker Type: Cigarettes Length of Time of Smoking/Using Tobacco: 1/2 ppd X 6 years Review of Systems Positive: Fever - subjective, intermittent fever Positive: Other - back pain All Other Systems Reviewed And Are Negative: Yes Physical Exam Triage Information Reviewed: Yes Vital Signs On Initial Exam: Initial Vitals Temp Pulse Resp BP Pulse Ox 99.4 F 82 18 141/71 100 07/06/16 12:42 07/06/16 12:42 07/06/16 12:42 07/06/16 12:42 07/06/16 12:42 Vital Signs Reviewed: Yes Appearance: Positive: Pain Distress - moderate Skin: Positive: Warm, Skin Color Reflects Adequate Perfusion, Dry Eyes: Positive: EOMI, RAMIRO Neck: Positive: Supple, Nontender Respiratory/Lung Sounds: Positive: Clear to Auscultation, Breath Sounds Present Cardiovascular: Positive: RRR, Pulses are Symmetrical in both Upper and Lower Extremities Musculoskeletal: Positive: Pain @ - pain at L4-5. Neurological: Positive: Sensory/Motor Intact, Alert, Oriented to Person Place, Time, CN Intact II-III, Other - DTR intact bilat patellar Psychiatric: Positive: Affect/Mood Appropriate AVPU Assessment: Alert Diagnostics - Vital Signs Vital Signs Temp Pulse Resp BP Pulse Ox 07/06/16 12:42 99.4 F 82 18 141/71 100 - Laboratory Lab Results: Lab Results 07/06/16 07/06/16 07/06/16 Range/Units 15:30 15:30 15:30 WBC 13.1 H (3.5-10.8) 10^3/ul RBC 4.30 (4.0-5.4) 10^6/ul Hgb 12.8 L (14.0-18.0) g/dl Hct 38 L (42-52) % MCV 89 (80-94) fL MCH 30 (27-31) pg MCHC 34 (31-36) g/dl RDW 14 (10.5-15) % Plt Count 449 (150-450) 10^3/ul MPV 7 L (7.4-10.4) um3 Neut % (Auto) 75.9 (38-83) % Lymph % (Auto) 13.3 L (25-47) % [place] % (Auto) 9.6 H (1-9) % Eos % (Auto) 0.7 (0-6) % Baso % (Auto) 0.5 (0-2) % Absolute Neuts (auto) 9.9 H (1.5-7.7) 10^3/ul Absolute Lymphs (auto) 1.7 (1.0-4.8) 10^3/ul Absolute Monos (auto) 1.3 H (0-0.8) 10^3/ul Absolute Eos (auto) 0.1 (0-0.6) 10^3/ul Absolute Basos (auto) 0.1 (0-0.2) 10^3/ul Absolute Nucleated RBC 0 10^3/ul Nucleated RBC % 0 INR (Anticoag Therapy) 1.34 H (0.89-1.11) Sodium 133 (133-145) mmol/L Potassium 4.3 (3.5-5.0) mmol/L Chloride 98 L (101-111) mmol/L Carbon Dioxide 26 (22-32) mmol/L Anion Gap 9 (2-11) mmol/L BUN 9 (6-24) mg/dL Creatinine 0.97 (0.67-1.17) mg/dL Est GFR ( Amer) 123.3 (>60) Est GFR (Non-Af Amer) 95.9 (>60) BUN/Creatinine Ratio 9.3 (8-20) Glucose 85 (70-100) mg/dL Calcium 9.7 (8.6-10.3) mg/dL Total Bilirubin 0.40 (0.2-1.0) mg/dL AST 23 (13-39) U/L ALT 29 (7-52) U/L Alkaline Phosphatase 98 (34-104) U/L C-Reactive Protein 223.27 H (< 5.00) mg/L Total Protein 8.7 (6.4-8.9) g/dL Albumin 3.7 (3.2-5.2) g/dL Globulin 5.0 H (2-4) g/dL Albumin/Globulin Ratio 0.7 L (1-3) Result Diagrams: 07/06/16 15:30 07/06/16 15:30 Lab Statement: Any lab studies that have been ordered have been reviewed, and results considered in the medical decision making process. - Additional Comments Diagnostic Additional Comments: L-spine MRI -- MILD SCOLIOSIS. OTHERWISE UNREMARKABLE MRI OF THE LUMBAR SPINE. THERE ARE NO APPRECIABLE EPIDURAL FLUID COLLECTIONS. THERE IS NO BONE EDEMA OR ENDPLATE IRREGULARITY TO SUGGEST OSTEOMYELITIS/DISCITIS Re-Evaluation - Re-Evaluation First Eval Re-Evaluation Time: 15:44 Comment: MD in room to go over the plan of care involving MRI and subsequent disposition. Back Pain Course/Dx - Course Course Of Treatment: 25 yo male who uses injection drugs, was picked up by mom from methadone treatment after complaining for 5 weeks of back pain without trauma,pain worsened last week. pt seen at another facility back xray done. Of biggest concern is an epidural abscess, pt did have an mri here which does not show an abscess but given his elevated crp an mri with contrast has been ordered. He is being covered with vanco (25mg/kg) and cefepime and will be admitted to medicine while we wait on the mri with gill. Of note his urine is also pending and if that is concerning then a ct of the abd /pelvis will be done. All of this plan has been discussed with Dr. Hartmann - Diagnoses Differential Diagnosis/HQI/PQRI: Positive: Epidural Abscess Provider Diagnoses: Back pain, Intravenous drug abuse - Provider Notifications Discussed Care of Patient With: Dr. Hartmann (Hospitalist) at 1712 PM Discharge - Discharge Plan Condition: Stable Disposition: ADMITTED TO [facility] Referrals: Priti West [Primary Care Provider] - The documentation as recorded by the Mandeep coleman Soohyun accurately reflects the service I personally performed and the decisions made by me, Dawn Ribeiro MD.
[2016-07-06] MEDS ORDERED: VANCOMYCIN IVPB ONE (17:30)
[2016-07-06] MEDS ORDERED: NS 0.9% IVPB ONE (17:30)
[2016-07-06 17:39] LABS: Urine Bacteria Absent (Absent); Urine Bilirubin Negative (Negative); Urine Glucose Negative (Negative); Urine Nitrite Negative (Negative)
[2016-07-06] MEDS ORDERED: Vancomycin(*) 1,000 MG VIAL IVPB SCH (18:00)
[2016-07-06] MEDS ORDERED: NS 0.9% 50 ML* 0 ML ONE (18:55)
[2016-07-06] MEDS ORDERED: Gadoteridol* (CONTRAST) 279.3 MG/ML 10 ML IV ONE (19:01)
[2016-07-06] MEDS ORDERED: NS 0.9% 1000 ML* 1,000 ML IV SCH (19:15)
--- NOTE | 2016-07-06 19:20 | RAD ---
INDICATION: Back pain, intermittent fevers. COMPARISON: Comparison is made to prior MRI obtained earlier today. TECHNIQUE: Coronal T2 and axial and sagittal T1-weighted images were obtained following intravenous injection of 14 ml of ProHance nonionic contrast. FINDINGS: The patient moved during the exam limiting the study. There is a mild lumbar scoliosis convex toward the right side. No endplate irregularity, erosions or abnormal enhancement is seen. As noted previously. There is no evidence for discitis, osteomyelitis. There is stranding around both kidneys and fluid collections within both kidneys with abnormal enhancement suspicious for renal abscesses. Recommend a CT of the abdomen with intravenous contrast enhancement for further evaluation. The results of this exam were called to the referring clinician. IMPRESSION: 1. FINDINGS SUSPICIOUS FOR PYELONEPHRITIS AND BILATERAL RENAL ABSCESSES. 2. LIMITED STUDY, NO EVIDENCE FOR DISCITIS OR OSTEOMYELITIS.
[2016-07-06] MEDS ORDERED: Acetaminophen TAB* 325 MG PO PRN (21:07)
[2016-07-06] MEDS: HYDROmorphone* 2 MG/ML 1 ML SYR IV SLOW PU PRN (21:15)
[2016-07-06] MEDS ORDERED: Iohexol 300* (CONTRAST) 10 ML SDV IV ONE (21:38)
[2016-07-06] MEDS: NS 0.9% 1000 ML* 1,000 ML IV SCH (22:00)
--- NOTE | 2016-07-06 22:12 | RAD ---
INDICATION: Pyelonephritis, renal abscess. COMPARISON: Correlation is made with a prior MRI of the lumbar spine of the same day. TECHNIQUE: A CT scan of the abdomen and pelvis was performed with intravenous and without oral contrast following intravenous injection of 94 ml of Omnipaque 300 nonionic contrast. Contiguous axial sections were obtained from the lung bases through the symphysis pubis. Images were reconstructed in the coronal and sagittal planes. The exam is slightly limited due to motion artifact. FINDINGS: There is mild atelectasis in the left lower lobe. No pleural effusion is present. The liver is normal in size without significant focal abnormality. The spleen is mildly enlarged. No calcified gallstones are seen. The pancreas is within normal limits. The adrenal glands appear to be within normal limits. There are multiple bilateral complex cystic renal masses. The largest mass in the left kidney extends from the region of the lower pole exophytically and appears to invade the left psoas muscle and measures up to 4.0 x 3.7 cm in size. These findings are nonspecific although would be most consistent with pyelonephritis and bilateral renal abscesses. No hydronephrosis is present. The aorta is normal in caliber and demonstrates homogeneous contrast opacification. There are couple mildly prominent retroperitoneal lymph nodes at the level of the renal geo measuring up to 1.0 cm in transverse dimension. The stomach, small and large bowel appear nondistended. The appendix is not well visualized. There is a moderate to large amount retained stool. There is no evidence for diverticulitis or colitis. No free intraperitoneal air or fluid is seen. No significant focal osseous abnormality is seen. The results of this examination were called to Dr. Gregory. IMPRESSION: THERE ARE MULTIPLE BILATERAL COMPLEX CYSTIC RENAL MASSES WITH ONE EXTENDING POSTERIORLY ON THE LEFT SIDE INVOLVING THE LEFT PSOAS MUSCLE. THESE FINDINGS ARE NONSPECIFIC ALTHOUGH GIVEN THE PATIENT'S CLINICAL HISTORY WOULD BE MOST CONSISTENT WITH MULTIPLE ABSCESSES. RECOMMEND CLINICAL CORRELATION AND FOLLOW-UP TO RESOLUTION.
[2016-07-07] MEDS: oxyCODONE/Acetamin 5/325 MG* TAB PO PRN ×6 (00:05→20:53)
--- NOTE | 2016-07-07 01:38 | HP ---
HISTORY AND PHYSICAL: DATE OF ADMISSION: 07/06/16 PRIMARY CARE PROVIDER: DONNA Mcdonald. ATTENDING PHYSICIAN: Hernán Fabian MD * (dictated by Piper Hong NP). CHIEF COMPLAINT: Low back pain for 5 weeks. HISTORY OF PRESENT ILLNESS: Mr. Chopra is a 25-year-old male with past medical history significant for IV drug abuse, asthma, anxiety, depression, ADHD, PTSD, schizophrenia, and bipolar disorder, who presents to the emergency room with complaints of 5 weeks of back pain that has become worse over the last week. The patient reports that he is homeless and had been sleeping in stairwells and in other areas and felt that this was the cause of his back pain. He denies lifting or moving anything heavy to contribute to his back pain. The patient reports feeling hot when he is in pain, but denies any fever or chills. He also denies chest discomfort or shortness of breath. He also reports nausea and sharp abdominal pain. He reports constipation. He denies loss of bowel or bladder, numbness and tingling. The patient reports that his mother picked him up from inpatient rehab yesterday and brought him back up here to become an inpatient at the local [facility] drug [place]. The patient also reports that he had been on a methadone taper and took his last dose of methadone yesterday. He reports daily IV drug use, prior to his inpatient rehab admission. While in the emergency room, the patient had labs that were significant for an elevated white blood cell count of 13.1. A CRP of 223.27. The urinalysis is significant for protein 1+, leukocyte esterase trace, and squamous epithelial cells present. The patient was afebrile. He underwent a noncontrast lumbar MRI , showing mild scoliosis but unremarkable. The patient then underwent a chest x -ray showing no evidence of intrathoracic disease. The patient also had contrast MRI of his lumbar spine showing findings suspicious for pyelonephritis and bilateral renal abscesses. This is a limited study. No evidence for diskitis or osteomyelitis. He denies any urinary symptoms. Hospitalists were asked to evaluate the patient for admission. PAST MEDICAL HISTORY: 1. IV drug abuse. 2. Asthma. 3. Anxiety and depression. 4. ADHD. 5. PTSD. 6. Schizophrenia. 7. Bipolar. ALLERGIES: No known drug allergies. FAMILY HISTORY: The patient denies any family history of coronary artery disease, diabetes mellitus or cancer. SOCIAL HISTORY: The patient reports smoking a pack and a half a day for the last 8 years. He occasionally drinks alcoholic beverages. Prior to his inpatient treatment, the patient was using IV heroin daily. He is unemployed and homeless. The patient's mother, Carmelita Chopra, will be his surrogate decision maker in the event he is unable to make decisions for himself. REVIEW OF SYSTEMS: I performed a 14-point review of systems. All the pertinent positives and negatives are mentioned in the history of present illness. The remaining review of systems are negative. PHYSICAL EXAMINATION GENERAL APPEARANCE: The patient is alert, pleasant, and appears to be in no acute distress. VITAL SIGNS: Temperature 98.9, heart rate 98, respiratory rate 20, O2 sat 98% on room air, blood pressure 146/71. HEENT: Normocephalic, atraumatic. Pupils are equal and reactive to light. Extraocular movements are intact. NECK: Supple. There is no lymphadenopathy noted. RESPIRATORY: There is no accessory muscle use. The lungs are clear to auscultation bilaterally. CARDIOVASCULAR: Regular rate and rhythm. S1 and S2 are present. There are no murmurs, rubs or gallops heard. ABDOMEN: Soft, nontender and nondistended. There are bowel sounds present x4. EXTREMITIES: There is no lower extremity edema. DP and PT pulses are 2+ and symmetric. MUSCULOSKELETAL: There is no clubbing or cyanosis noted. The patient exhibits good strength in all extremities. The patient has no tenderness down his midline back. NEUROLOGICAL: The patient is alert and oriented x4. Cranial nerves II through XII are grossly intact. PSYCHOLOGICAL: The patient is calm and cooperative. SKIN: There are no rashes or abnormalities seen. DIAGNOSTIC STUDIES/LAB DATA: Sodium 133, potassium 4.3, chloride 98, CO2 26, BUN 9, creatinine 0.97, glucose 85. CRP 223.27. White blood cell count 13.1, hemoglobin 12.8, hematocrit 38, and platelet count 449. Urinalysis is significant for protein 1+, leukocyte esterase trace, and squamous epithelial cells present. Chest x-ray from today shows no evidence of acute intrathoracic disease. Noncontrast lumbar spine MRI from today. Radiologist's impression: Mild scoliosis. Otherwise, unremarkable MRI of the lumbar spine. There are no appreciable epidural fluid collections. There is no bone edema or endplate irregularity to suggest osteomyelitis. Contrast enhanced lumbar spine CT from today. Radiologist's impression: Findings suspicious for pyelonephritis and bilateral renal abscesses. Limited study. No evidence for diskitis or osteomyelitis. IMPRESSION: Mr. Chopra is a 25-year-old male with past medical history significant for IV drug use, anxiety and depression and asthma, who presents to the hospital with complaints of 5 weeks of back pain. He will be admitted as an inpatient for back pain. ASSESSMENT: 1. Back pain. The patient's MRI shows no signs of an epidural abscess, but does show possible pyelonephritis and bilateral renal abscesses. The patient received a dose of vancomycin and cefepime in the emergency room. His CRP is elevated at 223.27. We will get an abdomen and pelvis CT scan to further evaluate the patient's kidneys. For now, we will continue the patient on IV cefepime. He will have IV fluids and PRN pain medications. 2. Abdominal pain. I suspect some of the patient's complaints of abdominal pain are related to possible pyelonephritis. The patient also complains of constipation. We will start him on a bowel regimen. 3. IV drug abuse. The patient is currently not taking any medications and completed a methadone taper yesterday. I will ask Social Work to consult on the patient to assist with making sure that he still has a bed at [facility] at his discharge. 4. Fluids, electrolytes, and nutrition: The patient will be on a regular diet. 5. Code status: Full code. 6. DVT prophylaxis: The patient is at low risk and will be encouraged to ambulate. If he does not ambulate, we will place SCDs on him. 7. Disposition: Inpatient for low back pain, presumably caused from pyelonephritis. TIME SPENT: Time for this admission was 60 minutes, 35 minutes was spent with the patient and mother discussing medications, past medical history, and the events leading up to his arrival today, and performing a physical examination. The case has been reviewed with the attending, Dr. Fabian, who agrees with the plan of care. Reviewed by IVET PARISI 07/07/16 1853 CC: DONNA Mcdonald * [id number]/[facility] #: [id number] MARKUS
[2016-07-07] MEDS: HYDROmorphone* 2 MG/ML 1 ML SYR IV SLOW PU PRN ×5 (03:31→22:55)
[2016-07-07] MEDS ORDERED: Cefepime(*) 2 GM in NS 0.9% 50 ML* 50 ML IVPB SCH (04:00)
[2016-07-07] MEDS: NS 0.9% 1000 ML* 1,000 ML IV SCH ×2 (06:29→17:29)
[2016-07-07 07:10] LABS: Hematocrit 40 % (42-52); Hemoglobin 13.3 g/dl (14.0-18.0); Mean Corpuscular HGB Conc 33 g/dl (31-36); Mean Corpuscular Hemoglobin 30 pg (27-31); Mean Corpuscular Volume 90 fL (80-94); Mean Platelet Volume 7 um3 (7.4-10.4); Red Blood Count 4.49 10^6/ul (4.0-5.4); Red Cell Distribution Width 14 % (10.5-15); White Blood Count 14.4 10^3/ul (3.5-10.8)
[2016-07-07] MEDS: Polyethylene Glycol 3350* 17 GM PACKET PO SCH (12:00)
[2016-07-07] MEDS: Cefepime(*) 2 GM in NS 0.9% 50 ML* 50 ML IVPB SCH ×2 (12:00→23:34)
--- NOTE | 2016-07-07 12:17 | PN ---
Subjective Date of Service: 07/07/16 Interval History: Patient seen and examined at bedside. Pt states that he continues to have lower back pain and abdominal pain. Pt reports dysuria. Denies fever, chills, shortness of breath, chest discomfort, N/V/D. Pt reports that he continues to have constipation. He reports having Diarrhea 2 days ago and being constipated while at drug rehab. Pt states that he last used Heroin 8 days ago. Family History: Unchanged from Admission Social History: Unchanged from Admission Past Medical History: Unchanged from Admission Objective Active Medications: Acetaminophen (Tylenol Tab*) 650 mg PO Q6H PRN Reason: FEVER/PAIN Hydromorphone HCl (Dilaudid Iv*) 2 mg IV SLOW PU Q4H PRN Reason: PAIN Cefepime HCl 2 gm/ Sodium (Chloride) 50 mls @ 100 mls/hr IVPB Q12H ASHLEY Sodium Chloride (Ns 0.9% 1000 Ml*) 1,000 mls @ 125 mls/hr IV PER RATE ASHLEY Magnesium Hydroxide (Milk Of Magnesia Liq*) 30 ml PO Q6H PRN Reason: CONSTIPATION Oxycodone/Acetaminophen (Percocet 5/325 Tab*) 1 tab PO Q4H PRN Reason: PAIN - MILD TO MODERATE Oxycodone/Acetaminophen (Percocet 5/325 Tab*) 2 tab PO Q4H PRN Reason: PAIN - MODERATE TO SEVERE Polyethylene Glycol/Electrolytes (Miralax*) 17 gm PO DAILY [facility] Vital Signs 07/06/16 07/06/16 07/06/16 19:48 20:00 20:33 Temperature 99.0 F Pulse Rate 98 86 Respiratory 16 18 20 Rate Blood Pressure 136/83 162/73 (mmHg) O2 Sat by Pulse 98 100 Oximetry 07/06/16 07/06/16 07/06/16 20:45 20:48 21:15 Temperature 99.0 F Pulse Rate 86 Respiratory 20 16 16 Rate Blood Pressure 162/73 (mmHg) O2 Sat by Pulse 100 Oximetry 07/06/16 07/06/16 07/07/16 22:15 23:51 00:00 Temperature 98.9 F Pulse Rate 97 Respiratory 16 16 Rate Blood Pressure 98/77 138/65 (mmHg) O2 Sat by Pulse 98 Oximetry 07/07/16 07/07/16 07/07/16 00:05 00:58 02:05 Temperature Pulse Rate Respiratory 16 16 14 Rate Blood Pressure (mmHg) O2 Sat by Pulse Oximetry 07/07/16 07/07/16 07/07/16 03:30 03:31 04:31 Temperature 98.9 F Pulse Rate 77 Respiratory 16 16 16 Rate Blood Pressure 140/74 (mmHg) O2 Sat by Pulse 99 Oximetry 07/07/16 07/07/16 07/07/16 06:29 07:44 08:29 Temperature 98.5 F Pulse Rate 77 Respiratory 16 16 14 Rate Blood Pressure 133/49 (mmHg) O2 Sat by Pulse 96 Oximetry 07/07/16 07/07/16 10:42 11:59 Temperature Pulse Rate Respiratory 16 18 Rate Blood Pressure (mmHg) O2 Sat by Pulse Oximetry Oxygen Devices in Use Now: None Appearance: NAD, laying in bed Eyes: No Scleral Icterus, PERRLA Ears/Nose/Mouth/Throat: Mucous Membranes Moist Neck: NL Appearance and Movements; NL JVP, Trachea Midline Respiratory: Symmetrical Chest Expansion and Respiratory Effort, Clear to Auscultation Cardiovascular: NL Sounds; No Murmurs; No JVD, RRR Abdominal: NL Sounds; No Tenderness; No Distention Extremities: No Edema Skin: No Rash or Ulcers Neurological: Alert and Oriented x 3, NL Muscle Strength and Tone Lines/Tubes/Other Access: Clean, Dry and Intact Peripheral IV - site benign Nutrition: Taking PO's Result Diagrams: 07/07/16 06:26 07/06/16 15:30 Additional Lab and Data: Assess/Plan/Problems-Billing Assessment: Mr. Chopra is a 25 yo male with PMH significant for IV drug abuse, anxiety, depression and asthma who presented to the hospital with complaints of 5 weeks of low back pain without an injury. - Patient Problems (1) Back pain Code(s): M54.9 - DORSALGIA, UNSPECIFIED SNOMED Code(s): 014591092 Comment: - With abdominal pain - Afebrile, leukocytosis - Blood cultures - Aerobic cultures 1/4 MRSA positive - MRI - findings suspicious for pyelonephritis and bilateral renal abscesses - CT ABD/Pelvis - multiple bilateral complex cystic renal masses with one extending posteriorly on the left side involving the left psoas muscle - ID consult pending - Will start vanco (2) Drug abuse Code(s): F19.10 - OTHER PSYCHOACTIVE SUBSTANCE ABUSE, UNCOMPLICATED SNOMED Code(s): 38511430 Comment: - Social work consult - Plan for discharge to [facility] when medically stable (3) DVT prophylaxis Code(s): JFM5866 - SNOMED Code(s): 017868224 Comment: - SCDs (4) Full code status Code(s): Z78.9 - OTHER SPECIFIED HEALTH STATUS SNOMED Code(s): 180779317 Status and Disposition: Inpatient. Estimated length of stay 2-3 days, Plan for discharge to inpatient drug rehab when medically stable.
[2016-07-07] MEDS ORDERED: Vancomycin per Pharmacy* NOTE FOLLOW UP PRN (12:20)
[2016-07-07] MEDS ORDERED: Vancomycin(*) 1,250 MG in NS 0.9% 250 ML* 250 ML IVPB ONE (12:30)
[2016-07-07] MEDS: Ibuprofen TAB* 600 MG PO SCH ×2 (16:43→23:34)
[2016-07-07] MEDS: Vancomycin(*) 1,000 MG in NS 0.9% 250 ML* 250 ML IVPB SCH (19:39)
--- NOTE | 2016-07-07 21:25 | CONS ---
CONSULTATION REPORT: DATE OF CONSULTATION: 07/07/16 REQUESTING PROVIDER: Piper Weiss NP CONSULTING SERVICE: Infectious Disease. REASON FOR CONSULTATION: MRSA bacteremia, renal abscess. IMPRESSION: 1. Bilateral renal abscesses, the largest is 4 x 3.7 cm on the left. It also invades the left psoas and causing psoas abscess. 2. MRSA bacteremia, likely explains the bilateral abscesses. He has a bland urinalysis which argues against a gram-negative organism being present; however , it is still possible it is an unrelated infection. Only one of four culture bottles positive at this point, argues against intravascular infection including infective endocarditis, and he has no peripheral stigmata of endocarditis. 3. Injection drug use in brief remission, drug of choice is heroin. 4. Hepatitis C virus infection, chronic. 5. Schizophrenia. RECOMMENDATIONS: 1. Continue vancomycin goal trough 15 to 20 and cefepime until the urine culture is back; assuming the urine culture is negative or shows MRSA, we will stop the cephalosporin. 2. The treatment for renal abscess is IV antibiotics. Drainage is sometimes needed; however, cutoff is usually about 5 cm for percutaneous drainage, and given the largest is 4 cm I think it is reasonable to continue with IV antibiotics alone, follow his symptoms, and repeat a scan in 2 to 4 days to see if there is improvement. If anything is getting worse or they are not improving on the scan, we will request Interventional Radiology see him about a percutaneous aspiration. 3. Outpatient hepatitis C evaluation. 4. We will check an HIV antibody. 5. Schedule anti-inflammatories 6. Trans thoracic echocardiogram HISTORY OF PRESENT ILLNESS: This is a 25-year-old man with IV drug use, last use 8 days ago, is admitted with low back pain. He has had a few weeks of low back pain. It got worse about a week ago. He has not tried much for it. The pain was worse with movement; some positions it was fine, others including standing it hurt and hurt to lift his left leg. Because of the severe pain, he came to the ER on the . He had recently been at a methadone program in [place]. In the ER, he was found to have a white count of 13,000. An MRI of the lumbar spine with and without contrast was negative. Blood cultures were sent. They are back now with MRSA. A CT of the abdomen and pelvis was done to follow abnormalities seen on the MRI that showed bilateral renal abscesses and left psoas abscess as described above. He has had no fevers, chills, or sweats here. He has had decreased appetite over the last week or so. Last injected about 8 days ago. He has no injection sites that are bothering him. No joint pain. No prosthetic material present. His low back pain is bilateral, sometimes is in the middle, but usually on the bilateral paraspinal, worse on the left and worse with raising his left leg. He has no weakness or numbness in the legs. PAST MEDICAL HISTORY: 1. Schizophrenia. 2. Bipolar disorder. 3. Injection drug use. 4. Asthma. 5. Anxiety. 6. Depression. 7. ADHD. 8. PTSD. MEDICATIONS: 1. Tylenol. 2. Cefepime 2 g every 12 hours. 3. Vancomycin 1 g IV every 6 hours. 4. Oxycodone. ALLERGIES: No known drug allergies. SOCIAL HISTORY: He is homeless, injects heroin. Smokes tobacco. Occasional alcohol. He has been in prison, but no known TB exposure. FAMILY HISTORY: No recurrent infections or tuberculosis. REVIEW OF SYSTEMS: A full review of systems was obtained. It was negative except as noted above. PHYSICAL EXAM: Vital Signs: Temperature 37, heart rate 77, respiratory rate 16 , blood pressure 130/50, O2 sat 96% on room air. In general, he is awake and in no acute distress. Neurologic: Oriented x3. Follows all commands. Cranial nerves II through XII are intact. Sensation is intact to light touch in the upper and lower extremities bilaterally. Strength is 5/5 in the biceps, triceps, wrist flexor, extensors, quadriceps, tibialis anterior, and gastrocnemius bilaterally and there is no lower extremity clonus bilaterally. HEENT: There is no conjunctival hemorrhage. Oropharynx without lesions. Neck is supple without nuchal rigidity. Lymph Nodes: There is no cervical, supraclavicular, inguinal, axillary, or epitrochlear lymphadenopathy. Heart has regular rate and rhythm without murmurs, rubs, or gallops. Lungs are clear to auscultation bilaterally. Abdomen: Soft, nontender, nondistended. There is no rebound. There is mild suprapubic tenderness to palpation. Skin: There is no rash or splinter hemorrhages. Musculoskeletal: There is no flank tenderness to palpation. There is no spine tenderness to palpation. There is bilateral lower paraspinal tenderness to palpation without fluctuance or crepitus. There is no joint synovitis. LABORATORY DATA: White blood cell count 14, hemoglobin 13, platelets 410, creatinine is 0.9. CRP 200. Please see impressions and recommendations as outlined above, which I have discussed with Piper Weiss NP. Thank you for asking me to see Mr. Chopra in consultation. [id number]/[facility] #: [id number] [facility]PITALElliott
[2016-07-08] MEDS: Vancomycin(*) 1,000 MG in NS 0.9% 250 ML* 250 ML IVPB SCH ×4 (02:10→19:47)
[2016-07-08] MEDS: oxyCODONE/Acetamin 5/325 MG* TAB PO PRN ×4 (03:15→19:46)
[2016-07-08 07:12] LABS: Add Diff/Slide Review? Slide Review Added; Comments Flag Yes; Hematocrit 36 % (42-52); Hemoglobin 12.1 g/dl (14.0-18.0); Mean Corpuscular HGB Conc 34 g/dl (31-36); Mean Corpuscular Hemoglobin 30 pg (27-31); Mean Corpuscular Volume 89 fL (80-94); Mean Platelet Volume 7 um3 (7.4-10.4); Red Blood Count 4.04 10^6/ul (4.0-5.4); Red Cell Distribution Width 15 % (10.5-15); White Blood Count 10.5 10^3/ul (3.5-10.8)
[2016-07-08] MEDS: HYDROmorphone* 2 MG/ML 1 ML SYR IV SLOW PU PRN ×4 (07:16→21:21)
[2016-07-08] MEDS: NS 0.9% 1000 ML* 1,000 ML IV SCH ×2 (07:17→21:22)
[2016-07-08] MEDS ORDERED: Vancomycin Trough Check NOTE FOLLOW UP ONE (08:00)
[2016-07-08] MEDS: Ibuprofen TAB* 600 MG PO SCH ×2 (09:10→15:44)
[2016-07-08] MEDS: Polyethylene Glycol 3350* 17 GM PACKET PO SCH (09:12)
--- NOTE | 2016-07-08 09:49 | ECHO ---
Patient: SHIRA SWANSON [facility] Rec#: [id number] : 1990 Date: 07/08/2016 Age: 25y Height: 172.72 cm / 68.0 in Weight: 68.95 kg / 152.0 lbs Sex: M BSA: 1.82 Room#: [facility] Admit Date#: 07/06/2016 Type: Inpatient Referring: Tristin Steve MD Reading: Michelle Frias MD Framing Manager: Radha Farias [facility] Framing Manager: Piper Duong CC: Priti West NP Transthoracic Echocardiogram Indication: Bacteremia BP: 101/48 HR: 51 Rhythm: Bradycardia Indications Bacteremia Findings History: MRSA postive cultures, renal masses, IVDA, asthma, ADHD, PTSD, schizophrenia. Technical Comments: The study quality is good. Completed at 0901. Left Ventricle: The left ventricular chamber size is normal. Mild concentric left ventricular hypertrophy is observed. Global left ventricular wall motion and contractility are within normal limits. There is normal left ventricular systolic function. The estimated ejection fraction is 60-65%. Normal left ventricular diastolic filling is observed. Left Atrium: The left atrial chamber size is normal. Right Ventricle: The right ventricular cavity size is normal. The right ventricular global systolic function is normal. Right Atrium: The right atrium is mildly dilated. Aortic Valve: The aortic valve is trileaflet. There is no evidence of aortic valve thickening. There is no evidence of aortic regurgitation. There is no evidence of aortic stenosis. Mitral Valve: The anterior leaflet of the mitral valve is thickened. There is mild mitral regurgitation. There is no evidence of mitral stenosis. Tricuspid Valve: The tricuspid valve leaflets are normal. There is mild tricuspid regurgitation. No pulmonary hypertension is noted. There is no tricuspid stenosis. Pulmonic Valve: The pulmonic valve appears normal. There is mild pulmonic regurgitation. There is no pulmonic stenosis. Pericardium: There is no significant pericardial effusion. Aorta: The aortic root appears normal. There is no dilatation of the ascending aorta. There is no dilatation of the aortic arch. Pulmonary Artery: The main pulmonary artery appears normal. Venous: The inferior vena cava appears normal in size. There is a greater than 50% respiratory change in the inferior vena cava dimension. Conclusions Mild concentric left ventricular hypertrophy is observed. Global left ventricular wall motion and contractility are within normal limits. The estimated ejection fraction is 60-65%. The right ventricular global systolic function is normal. All valves appear structurally normal and were well visualized, no vegetations seen. There is mild mitral regurgitation. There is mild tricuspid regurgitation. No prior echo to compare. Measurements Name Value Normal Range RVIDd (AP) 2D 2.2 cm (0.9 - 2.6) RVDdMajor (2D) 4 cm (2.2 - 4.4) RAd ISD 4CH 5.7 cm (3.4 - 4.9) RA (A4C)W 4.2 cm (2.9 - 4.6) IVSd (2D) 1.26 cm (0.6 - 1) LVPWd (2D) 1.1 cm (0.6 - 1) LVIDd (2D) 5 cm (3.6 - 5.4) LVIDs (2D) 3.3 cm - LV FS (2D) 34 % (25 - 45) Aortic Annulus 2.2 cm (1.4 - 2.6) Ao root diameter (2D) 2.7 cm (2.1 - 3.5) Ascending Ao 2.1 cm (2.1 - 3.4) Aortic arch 2.5 cm (1.8 - 3.4) LA dimension (AP) 2D 3.4 cm (2.3 - 3.8) LAd ISD 4CH 5.3 cm (2.9 - 5.3) LA ISD 4CH W 3.7 cm (2.5 - 4.5) Name Value Normal Range LA ESV SP 4CH (A/L) 50 ml - LA ESV SP 2CH (A/L) 57 ml - LA ESV BP (A/L) 57 ml - LA ESV BP (A/L) index 31.29 ml/m2 - LA ESV SP 4CH (MOD) 47 ml - LA ESV SP 2CH (MOD) 53 ml - Name Value Normal Range MV E-wave Vmax 0.9 m/sec - MV deceleration time 155 msec - MV A-wave Vmax 0.38 m/sec - MV E:A ratio 2.5 ratio - LV septal e' Vmax 0.13 m/sec - LV lateral e' Vmax 0.15 m/sec - LV E:e' septal ratio 7.69 ratio - LV E:e' lateral ratio 6.67 ratio - Name Value Normal Range AV Vmax 1.2 m/sec - AV VTI 26.5 cm - AV peak gradient 5.95 mmHg - AV mean gradient 3.26 mmHg - LVOT Vmax 1 m/sec - LVOT VTI 21.7 cm - LVOT peak gradient 3.63 mmHg - LVOT mean gradient 1.98 mmHg - OSCAR Vmax 1.3 m/sec - Name Value Normal Range TR Vmax 2.7 m/sec - TR peak gradient 29 mmHg - RAP 3 mmHg - RVSP 32 mmHg - IVC diameter 1.9 cm - Name Value Normal Range PV Vmax 0.9 m/sec - PV peak gradient 3.52 mmHg -
[2016-07-08] MEDS: Cefepime(*) 2 GM in NS 0.9% 50 ML* 50 ML IVPB SCH (11:15)
--- NOTE | 2016-07-08 11:34 | PN ---
Progress Note - Progress Note SOAP: Subjective: DOS: 07/08/16 CC: fever HPI: 25 yo man recent IVDU, no with back pain and fever. Had fever and chills overnight. Low back pain slightly better today, does not radiate, worse with moving left leg. No rash or diarrhea, no fever since last night. Objective: [] Vital Signs Temp 36.2 C 07/08/16 07:25 Pulse 72 07/08/16 07:23 Resp 16 07/08/16 09:11 BP 114/59 07/08/16 07:23 Pulse Ox 100 07/08/16 07:23 Intake & Output 07/07/16 07/08/16 07/08/16 18:59 06:59 18:59 Intake Total 9725 721 3602 Output Total 700 775 Balance 389 34 8801 Intake: IV Fluids 1268 1049 NS (0.9%) 1049 all fluids 1268 IVPB 277 250 ABX - VANCOMYCIN 277 250 Oral 0 510 Output: Urine 700 775 Other: # Bowel Movements 0 Gen:No distress Neuro: AAOx3 HEENT:PERRL, MMM Neck:supple Heart:RRR no murmur Lungs:CTA BL Abd:+BS NTND soft Skin: No rash MSK: no spine tenderness, paraspinal low back tenderness Laboratory Results - last 24 hr 07/08/16 07/08/16 06:52 06:52 WBC 10.5 RBC 4.04 Hgb 12.1 L Hct 36 L MCV 89 MCH 30 MCHC 34 RDW 15 Plt Count 405 MPV 7 L Neut % (Auto) 63.7 Lymph % (Auto) 18.3 L [place] % (Auto) 13.3 H Eos % (Auto) 3.6 Baso % (Auto) 1.1 Absolute Neuts (auto) 6.7 Absolute Lymphs (auto) 1.9 Absolute Monos (auto) 1.4 H Absolute Eos (auto) 0.4 Absolute Basos (auto) 0.1 Absolute Nucleated RBC 0 Nucleated RBC % 0 Vancomycin Trough 19.2 Microbiology 07/06/16 15:45 Aerobic Blood Culture - Preliminary Blood Venous Staphylococcus Aureus Anaerobic Blood Culture - Preliminary No Growth Day 1 Blood MRSA/MSSA (PCR) - Final Mrsa Positive S.aureus Positive 07/06/16 13:39 Urine Culture - Final Urine No Growth (<1,000 CFU/mL) 07/06/16 15:30 Aerobic Blood Culture - Preliminary Blood Venous No Growth Day 1 Anaerobic Blood Culture - Preliminary No Growth Day 1 Assessment: 1. BL renal abscess due to MRSA 2. Left psoas abscess due to MRSA 3. septicemia, present on admission, due to MRSA bacteremia. Low pre test probablity for infective endocarditis and the TTE is negative so will not pursue SANA. 4. IVDU in brief remission 5. Hepatitis C Plan: 1. continue vancomycin goal tr 15-20, DC cefepime, will plan on 4 weeks IV abx. WBC decreased, pain improved suggests improved control of infection, expect a few days of fever, agree w recheck BC to prove clearance. If continues to improve may not need drainage procedure. 35 minutes floor time >50% face to face with patient and father in counseling regarding next steps for treating infection, monitoring of side effects and indications for drainage of abscess. All questions answered.
--- NOTE | 2016-07-08 18:13 | PN ---
Subjective Date of Service: 07/08/16 Interval History: Patient seen and examined at bedside. Pt states that he continues to have pain when the pain medication wears off. Denies fever, chills, shortness of breath, chest discomfort, N/V/D. Pt reports constipation. Family History: Unchanged from Admission Social History: Unchanged from Admission Past Medical History: Unchanged from Admission Objective Active Medications: Acetaminophen (Tylenol Tab*) 650 mg PO Q6H PRN Reason: FEVER/PAIN Hydromorphone HCl (Dilaudid Iv*) 2 mg IV SLOW PU Q4H PRN Reason: PAIN Sodium Chloride (Ns 0.9% 1000 Ml*) 1,000 mls @ 125 mls/hr IV PER RATE ASHLEY Vancomycin HCl 1,000 mg/ (Sodium Chloride) 250 mls @ 166.667 mls/hr IVPB Q6H ASHLEY Ibuprofen (Motrin Tab*) 600 mg PO Q8H ASHLEY Stop: 07/09/16 08:01 Magnesium Hydroxide (Milk Of Magnesia Liq*) 30 ml PO Q6H PRN Reason: CONSTIPATION Oxycodone/Acetaminophen (Percocet 5/325 Tab*) 1 tab PO Q4H PRN Reason: PAIN - MILD TO MODERATE Oxycodone/Acetaminophen (Percocet 5/325 Tab*) 2 tab PO Q4H PRN Reason: PAIN - MODERATE TO SEVERE Pharmacy Consult (Vancomycin Per Pharmacy*) 1 note FOLLOW UP . PRN Reason: PER PROTOCOL Pharmacy Profile Note (Vancomycin Trough Check) 1 note FOLLOW UP 0730 ONE Stop : 07/10/16 07:31 Polyethylene Glycol/Electrolytes (Miralax*) 17 gm PO DAILY [facility] Vital Signs 07/07/16 07/07/16 07/07/16 18:41 18:43 19:41 Temperature 98.7 F Pulse Rate Respiratory 18 16 Rate Blood Pressure (mmHg) O2 Sat by Pulse Oximetry 07/07/16 07/07/16 07/07/16 20:00 20:22 20:53 Temperature 98.4 F Pulse Rate 82 Respiratory 16 16 Rate Blood Pressure 101/53 (mmHg) O2 Sat by Pulse 98 Oximetry 07/07/16 07/07/16 07/07/16 22:53 22:55 23:15 Temperature 97.6 F Pulse Rate 47 Respiratory 16 16 16 Rate Blood Pressure 101/48 (mmHg) O2 Sat by Pulse 97 Oximetry 07/08/16 07/08/16 07/08/16 00:20 03:15 05:15 Temperature Pulse Rate 71 Respiratory 16 15 Rate Blood Pressure (mmHg) O2 Sat by Pulse 98 Oximetry 07/08/16 07/08/16 07/08/16 06:10 07:16 07:23 Temperature 97.3 F Pulse Rate 72 Respiratory 18 Rate Blood Pressure 114/59 (mmHg) O2 Sat by Pulse 100 Oximetry 07/08/16 07/08/16 07/08/16 07:25 08:00 08:16 Temperature 97.2 F Pulse Rate Respiratory 16 18 Rate Blood Pressure (mmHg) O2 Sat by Pulse Oximetry 07/08/16 07/08/16 07/08/16 13:53 14:11 15:23 Temperature 97.7 F Pulse Rate 63 Respiratory 18 16 16 Rate Blood Pressure 125/60 (mmHg) O2 Sat by Pulse 99 Oximetry Oxygen Devices in Use Now: None Appearance: NAD, laying in bed Ears/Nose/Mouth/Throat: Mucous Membranes Moist Respiratory: Symmetrical Chest Expansion and Respiratory Effort, Clear to Auscultation Cardiovascular: NL Sounds; No Murmurs; No JVD, RRR Abdominal: NL Sounds; No Tenderness; No Distention Extremities: No Edema Skin: No Rash or Ulcers Neurological: Alert and Oriented x 3, NL Muscle Strength and Tone Lines/Tubes/Other Access: Clean, Dry and Intact Peripheral IV - site benign Nutrition: Taking PO's Result Diagrams: 07/08/16 06:52 07/06/16 15:30 Additional Lab and Data: Assess/Plan/Problems-Billing Assessment: Mr. Chopra is a 25 yo male with PMH significant for IV drug abuse, anxiety, depression and asthma who presented to the hospital with complaints of 5 weeks of low back pain without an injury. - Patient Problems (1) Renal abscess Code(s): N15.1 - RENAL AND PERINEPHRIC ABSCESS SNOMED Code(s): 1479881 Comment: - Fever 07/07 evening, leukocytosis - Blood cultures from 07/06 - 03/18 MRSA positive - Repeat blood cultures from 07/07 pending - MRI - findings suspicious for pyelonephritis and bilateral renal abscesses - CT ABD/Pelvis - multiple bilateral complex cystic renal masses with one extending posteriorly on the left side involving the left psoas muscle - ID consult, input appreciated - Continue vanco - Will repeat CT ABD/pelvis on Wednesday (2) Bacteremia due to methicillin resistant Staphylococcus aureus Code(s): R78.81 - BACTEREMIA SNOMED Code(s): 68144264657096116 Comment: - 03/18 blood cultures positive from 07/06 - Repeat blood cultures from 07/07 pending - Urine cultures negative - Echo shows no vegitation on valves - Continue Vanco (3) Drug abuse Code(s): F19.10 - OTHER PSYCHOACTIVE SUBSTANCE ABUSE, UNCOMPLICATED SNOMED Code(s): 33286479 Comment: - Social work consult - Plan for discharge to [facility] when medically stable (4) DVT prophylaxis Code(s): UDJ8425 - SNOMED Code(s): 088048083 Comment: - SCDs (5) Full code status Code(s): Z78.9 - OTHER SPECIFIED HEALTH STATUS SNOMED Code(s): 007756213 Status and Disposition: Inpatient. Estimated length of stay 2-3 days, Plan for discharge to inpatient drug rehab when medically stable.
[2016-07-08] MEDS ORDERED: Baclofen TAB* 10 MG PO PRN (21:56)
[2016-07-09] MEDS: Ibuprofen TAB* 600 MG PO SCH ×2 (00:45→08:14)
[2016-07-09] MEDS: oxyCODONE/Acetamin 5/325 MG* TAB PO PRN ×5 (00:45→21:49)
[2016-07-09] MEDS: HYDROmorphone* 2 MG/ML 1 ML SYR IV SLOW PU PRN ×5 (02:06→19:44)
[2016-07-09] MEDS: Vancomycin(*) 1,000 MG in NS 0.9% 250 ML* 250 ML IVPB SCH ×4 (02:06→20:42)
[2016-07-09] MEDS: Magnesium Hydroxide LIQ* 30 ML UDC PO PRN ×2 (08:14→17:51)
[2016-07-09] MEDS: Polyethylene Glycol 3350* 17 GM PACKET PO SCH (08:14)
[2016-07-09] MEDS: NS 0.9% 1000 ML* 1,000 ML IV SCH (08:15)
--- NOTE | 2016-07-09 11:03 | PN ---
Progress Note - Progress Note SOAP: Subjective: DOS: 07/09/16 CC: fever HPI: 25 yo man recent IVDU, no with back pain and fever. No fever, chills, sweats. Low back pain down to a 6 from 10 on admission, does not radiate, worse with moving left leg. Sometimes feels abdominal pain. No BM since arrival here. No nausea. No rash or diarrhea. Objective: [] Vital Signs Temp 36.6 C 07/09/16 07:41 Pulse 56 07/09/16 07:41 Resp 18 07/09/16 10:35 BP 134/72 07/09/16 07:41 Pulse Ox 98 07/09/16 07:41 Intake & Output 07/08/16 07/09/16 07/09/16 18:59 06:59 18:59 Intake Total 9 536 1979 Balance 9 536 1979 Intake: IV Fluids 1049 1979 NS (0.9%) 1049 1979 IVPB 500 536 ABX - VANCOMYCIN 500 536 Oral 560 0 Other: Estimated Void Medium # Bowel Movements 0 # Voids 2 1 Gen:No distress Neuro: AAOx3 HEENT:PERRL, MMM Neck:supple Heart:RRR no murmur Lungs:CTA BL Abd:+BS NTND soft Skin: No rash MSK: no spine tenderness, paraspinal low back tenderness Assessment: 1. BL renal abscess due to MRSA 2. Left psoas abscess due to MRSA 3. septicemia, present on admission, due to MRSA bacteremia. Low pre test probablity for infective endocarditis and the TTE is negative so will not pursue SANA. 4. IVDU in brief remission 5. Hepatitis C 6. constipation Plan: 1. continue vancomycin goal tr 15-20, recheck BC, CRP, and CT AP on 07/10. 2. scheduled ibuprofen 3. bowel regimen Discussed with Piper Hong NP
[2016-07-09] MEDS ORDERED: Ibuprofen TAB* 600 MG PO PRN (16:57)
--- NOTE | 2016-07-09 17:00 | PN ---
Subjective Date of Service: 07/09/16 Interval History: Patient seen and examined at bedside. Pt states the he continues to have pain in his back the radiates into the left side of his abdomen. Denies fever, chills , shortness of breath, N/V/D. Pt reports an episode of chest tightness when he woke up earlier that lasted a few seconds and went away without any intervention. Pt states he continues to have constipation. Family History: Unchanged from Admission Social History: Unchanged from Admission Past Medical History: Unchanged from Admission Objective Active Medications: Acetaminophen (Tylenol Tab*) 650 mg PO Q6H PRN Reason: FEVER/PAIN Baclofen (Lioresal Tab*) 10 mg PO TID PRN Reason: SPASMS Hydromorphone HCl (Dilaudid Iv*) 2 mg IV SLOW PU Q4H PRN Reason: PAIN Sodium Chloride (Ns 0.9% 1000 Ml*) 1,000 mls @ 125 mls/hr IV PER RATE ASHLEY Vancomycin HCl 1,000 mg/ (Sodium Chloride) 250 mls @ 166.667 mls/hr IVPB Q6H ASHLEY Magnesium Hydroxide (Milk Of Magnlino Liq*) 30 ml PO Q6H PRN Reason: CONSTIPATION Oxycodone/Acetaminophen (Percocet 5/325 Tab*) 1 tab PO Q4H PRN Reason: PAIN - MILD TO MODERATE Oxycodone/Acetaminophen (Percocet 5/325 Tab*) 2 tab PO Q4H PRN Reason: PAIN - MODERATE TO SEVERE Pharmacy Consult (Vancomycin Per Pharmacy*) 1 note FOLLOW UP . PRN Reason: PER PROTOCOL Pharmacy Profile Note (Vancomycin Trough Check) 1 note FOLLOW UP 0730 ONE Stop : 07/10/16 07:31 Polyethylene Glycol/Electrolytes (Miralax*) 17 gm PO DAILY [facility] Vital Signs 07/08/16 07/08/16 07/08/16 17:00 18:00 19:38 Temperature 97.6 F Pulse Rate 63 Respiratory 18 18 20 Rate Blood Pressure 145/51 (mmHg) O2 Sat by Pulse 100 Oximetry 07/08/16 07/08/16 07/09/16 21:32 23:48 00:45 Temperature 97.9 F Pulse Rate 69 Respiratory 16 16 16 Rate Blood Pressure 135/57 (mmHg) O2 Sat by Pulse 98 Oximetry 07/09/16 07/09/16 07/09/16 02:06 03:14 06:27 Temperature 98.0 F Pulse Rate 61 Respiratory 16 18 16 Rate Blood Pressure 133/60 (mmHg) O2 Sat by Pulse 98 Oximetry 07/09/16 07/09/16 07/09/16 07:27 07:41 08:00 Temperature 97.8 F Pulse Rate 56 Respiratory 16 16 Rate Blood Pressure 134/72 (mmHg) O2 Sat by Pulse 98 Oximetry 07/09/16 07/09/16 07/09/16 13:33 14:46 15:08 Temperature 98.3 F Pulse Rate 72 Respiratory 16 18 18 Rate Blood Pressure 129/48 (mmHg) O2 Sat by Pulse 100 Oximetry 07/09/16 15:32 Temperature 97.9 F Pulse Rate 62 Respiratory 18 Rate Blood Pressure 133/51 (mmHg) O2 Sat by Pulse 100 Oximetry Oxygen Devices in Use Now: None Appearance: NAD, laying in bed Eyes: No Scleral Icterus, PERRLA Ears/Nose/Mouth/Throat: Mucous Membranes Moist Respiratory: Symmetrical Chest Expansion and Respiratory Effort, Clear to Auscultation Cardiovascular: NL Sounds; No Murmurs; No JVD, RRR Abdominal: NL Sounds; No Tenderness; No Distention Extremities: No Edema Skin: No Rash or Ulcers Neurological: Alert and Oriented x 3, NL Muscle Strength and Tone Lines/Tubes/Other Access: Clean, Dry and Intact Peripheral IV - site benign Nutrition: Taking PO's Result Diagrams: 07/08/16 06:52 07/06/16 15:30 Additional Lab and Data: Microbiology and Other Data: Microbiology 07/07/16 19:12 Aerobic Blood Culture - Preliminary Blood Venous No Growth Day 1 Anaerobic Blood Culture - Preliminary No Growth Day 1 07/07/16 19:12 Aerobic Blood Culture - Preliminary Blood Venous No Growth Day 1 Anaerobic Blood Culture - Final MRSA Blood Culture - Final Blood MRSA/MSSA (PCR) - Final Mrsa Positive S.aureus Positive Assess/Plan/Problems-Billing Assessment: Mr. Chopra is a 25 yo male with PMH significant for IV drug abuse, anxiety, depression and asthma who presented to the hospital with complaints of 5 weeks of low back pain without an injury. - Patient Problems (1) Renal abscess Code(s): N15.1 - RENAL AND PERINEPHRIC ABSCESS SNOMED Code(s): 4251699 Comment: - Fever 07/07 evening, leukocytosis resolved - Blood cultures from 07/06 - 03/18 MRSA positive - Repeat blood cultures from 07/07, no growth day 1 - MRI - findings suspicious for pyelonephritis and bilateral renal abscesses - CT ABD/Pelvis - multiple bilateral complex cystic renal masses with one extending posteriorly on the left side involving the left psoas muscle - ID consult, input appreciated - Continue vanco - Will repeat CT ABD/pelvis on Wednesday (2) Bacteremia due to methicillin resistant Staphylococcus aureus Code(s): R78.81 - BACTEREMIA SNOMED Code(s): 87116685466097851 Comment: - with septicemia on admission - 03/18 blood cultures positive from 07/06 - Repeat blood cultures from 07/07, no growth day 1 - Urine cultures negative - TTE shows no vegitation on valves, no need for SANA. - Continue Vanco (3) Drug abuse Code(s): F19.10 - OTHER PSYCHOACTIVE SUBSTANCE ABUSE, UNCOMPLICATED SNOMED Code(s): 26375540 Comment: - Social work consult - Plan for discharge to [facility] when medically stable (4) DVT prophylaxis Code(s): NMM1343 - SNOMED Code(s): 295480163 Comment: - SCDs (5) Full code status Code(s): Z78.9 - OTHER SPECIFIED HEALTH STATUS SNOMED Code(s): 749801051 Status and Disposition: Inpatient. Estimated length of stay 2-3 days, Plan for discharge to inpatient drug rehab when medically stable.
--- NOTE | 2016-07-09 20:52 | ED ---
Mandeep Parisi Soohyun, scribed for Dawn Ribeiro MD on 07/06/16 at 1933 . Progress - Results/Orders Results/Orders: MRI L-spine -- 1. FINDINGS SUSPICIOUS FOR PYELONEPHRITIS AND BILATERAL RENAL ABSCESSES. 2. LIMITED STUDY, NO EVIDENCE FOR DISCITIS OR OSTEOMYELITIS. Course/Dx - Course Course Of Treatment: 25 yo male who uses injection drugs, was picked up by mom from methadone treatment after complaining for 5 weeks of back pain without trauma,pain worsened last week. pt seen at another facility back xray done. Of biggest concern is an epidural abscess, pt did have an mri here which does not show an abscess but given his elevated crp an mri with contrast has been ordered. He is being covered with vanco (25mg/kg) and cefepime and will be admitted to medicine while we wait on the mri with gill. Of note his urine is also pending and if that is concerning then a ct of the abd /pelvis will be done. All of this plan has been discussed with Dr. Hartmann - Diagnoses Provider Diagnoses: Back pain, Intravenous drug abuse - Provider Notifications Discussed Care Of Patient With: Dr. Hartmann (Hospitalist) at 1712 PM. Mitch Forbes NP (Hospitalist) at 1938 PM -- discussed contrast MRI result. The documentation as recorded by the carlaibMandeep schulte Soohyun accurately reflects the service I personally performed and the decisions made by me, Dawn Ribeiro MD.
[2016-07-10] MEDS: HYDROmorphone* 2 MG/ML 1 ML SYR IV SLOW PU PRN ×6 (01:07→23:47)
[2016-07-10] MEDS: Vancomycin(*) 1,000 MG in NS 0.9% 250 ML* 250 ML IVPB SCH ×4 (02:40→19:19)
[2016-07-10 06:34] LABS: Hematocrit 34 % (42-52); Hemoglobin 11.2 g/dl (14.0-18.0); Mean Corpuscular HGB Conc 33 g/dl (31-36); Mean Corpuscular Hemoglobin 30 pg (27-31); Mean Corpuscular Volume 89 fL (80-94); Mean Platelet Volume 7 um3 (7.4-10.4); Red Blood Count 3.77 10^6/ul (4.0-5.4); Red Cell Distribution Width 14 % (10.5-15); White Blood Count 12.4 10^3/ul (3.5-10.8)
[2016-07-10 06:46] LABS: C Reactive Protein 179.55 mg/L (< 5.00); EGFR African American 127.9 (>60); EGFR Non-African American 99.5 (>60)
[2016-07-10] MEDS ORDERED: Vancomycin Trough Check NOTE FOLLOW UP ONE (07:30)
[2016-07-10] MEDS ORDERED: Iohexol 300* (CONTRAST) 10 ML SDV IV SCH (07:49)
[2016-07-10] MEDS: oxyCODONE/Acetamin 5/325 MG* TAB PO PRN ×3 (08:31→19:19)
[2016-07-10] MEDS: Polyethylene Glycol 3350* 17 GM PACKET PO SCH (08:34)
--- NOTE | 2016-07-10 12:52 | RAD ---
Indication: Evaluate for bilateral renal abscesses. Contrast: Administered 92.0 ml of OMNIPAQUE 300 mg/ml. CT of the abdomen and pelvis was performed after oral and IV contrast administration. Comparison is made with previous exam done July 06, 2016. Lung bases associated no pleural fluid, nodules or masses. Heart is of normal size without evidence of pericardial effusion. The liver is normal in size. No focal lesions or intrahepatic ductal dilatation is noted. The gallbladder demonstrates no calcified gallstones. The pancreas demonstrates no mass or pancreatic duct dilatation. Aorta and inferior vena cava are unremarkable. No adrenal masses are noted. The kidneys demonstrate symmetric nephrograms. In the upper pole of the right kidney there is a hypodense mass measuring approximately 3.1 cm in greatest width. This is consistent with lobar nephronia and early renal abscess formation. No hydronephrosis is noted. This is similar to that seen on July 06, 2016. The left kidney demonstrates multiple low density lesions especially in the mid to lower pole of the left kidney. Small multiloculated fluid collections are noted. The extent of this appears to be similar to that seen previously. In the posterior cortex of the lower pole there is additional low density lesion which extends into the left psoas muscle. The extent of this appears to be similar to that seen previously. Findings are consistent with renal abscess formation. There is likely rupture of the posterior renal abscess which extends into the left psoas muscle. CT of the pelvis demonstrates no free fluid. No dilated loops of bowel are noted. The appendix is visualized and is normal. The colon is filled with stool. IMPRESSION: MULTIPLE LOW DENSITY LESIONS IN BOTH KIDNEYS SOME OF WHICH ARE FORMING FLUID COLLECTIONS. FINDINGS ARE ON THE SPECTRUM OF RENAL ABSCESSES VERSUS LOBAR NEPHRONIA. THE EXTENT OF THIS APPEARS TO BE SIMILAR TO THAT SEEN PREVIOUSLY ON JULY 06, 2016. ADDITIONALLY EXOPHYTIC ABSCESSES ARE NOTED ALONG THE LEFT PSOAS MARGINS WITH ENLARGEMENT OF THE LEFT PSOAS MUSCLE.
--- NOTE | 2016-07-10 17:24 | PN ---
Subjective Date of Service: 07/10/16 Interval History: Patient seen and examined at bedside. Pt states that he continues to have left sided abdominal pain and back pain. Denies fever, chills, shortness of breath, chest discomfort, N/V/D. Pt states that he moved his bowels last evening. Pt was encouraged to ambulate. Family History: Unchanged from Admission Social History: Unchanged from Admission Past Medical History: Unchanged from Admission Objective Active Medications: Acetaminophen (Tylenol Tab*) 650 mg PO Q6H PRN Reason: FEVER/PAIN Baclofen (Lioresal Tab*) 10 mg PO TID PRN Reason: SPASMS Hydromorphone HCl (Dilaudid Iv*) 2 mg IV SLOW PU Q4H PRN Reason: PAIN Vancomycin HCl 1,000 mg/ (Sodium Chloride) 250 mls @ 166.667 mls/hr IVPB Q6H ASHLEY Ibuprofen (Motrin Tab*) 600 mg PO Q6H PRN Reason: PAIN Iohexol (Omnipaque 300* (Contrast)) 92 ml IV ONCE ASHLEY Stop: 07/12/16 23:59 Magnesium Hydroxide (Milk Of Magnlino Liq*) 30 ml PO Q6H PRN Reason: CONSTIPATION Oxycodone/Acetaminophen (Percocet 5/325 Tab*) 1 tab PO Q4H PRN Reason: PAIN - MILD TO MODERATE Oxycodone/Acetaminophen (Percocet 5/325 Tab*) 2 tab PO Q4H PRN Reason: PAIN - MODERATE TO SEVERE Pharmacy Consult (Vancomycin Per Pharmacy*) 1 note FOLLOW UP . PRN Reason: PER PROTOCOL Polyethylene Glycol/Electrolytes (Miralax*) 17 gm PO DAILY [facility] Vital Signs 07/09/16 07/09/16 07/09/16 20:00 20:32 20:44 Temperature 99.0 F Pulse Rate 76 Respiratory 20 20 7 Rate Blood Pressure 132/56 (mmHg) O2 Sat by Pulse 98 Oximetry 07/09/16 07/09/16 07/09/16 21:49 23:30 23:49 Temperature 99.0 F Pulse Rate 80 Respiratory 20 14 16 Rate Blood Pressure 119/40 (mmHg) O2 Sat by Pulse 97 Oximetry 07/10/16 07/10/16 07/10/16 07:00 07:46 08:00 Temperature 98.2 F Pulse Rate 79 Respiratory 14 14 Rate Blood Pressure 133/62 (mmHg) O2 Sat by Pulse 99 Oximetry 07/10/16 15:58 Temperature 98.9 F Pulse Rate 80 Respiratory 20 Rate Blood Pressure 134/61 (mmHg) O2 Sat by Pulse 100 Oximetry Oxygen Devices in Use Now: None Appearance: NAD, laying in bed Eyes: No Scleral Icterus, PERRLA Ears/Nose/Mouth/Throat: Mucous Membranes Moist Respiratory: Symmetrical Chest Expansion and Respiratory Effort, Clear to Auscultation Cardiovascular: NL Sounds; No Murmurs; No JVD Abdominal: NL Sounds; No Tenderness; No Distention Extremities: No Edema Skin: No Rash or Ulcers Neurological: Alert and Oriented x 3, NL Muscle Strength and Tone Lines/Tubes/Other Access: Clean, Dry and Intact Peripheral IV - site benign Nutrition: Taking PO's Result Diagrams: 07/10/16 05:39 07/10/16 05:39 Additional Lab and Data: Microbiology and Other Data: Microbiology 07/07/16 19:12 Aerobic Blood Culture - Preliminary Blood Venous No Growth Day 1 Anaerobic Blood Culture - Preliminary No Growth Day 1 07/07/16 19:12 Aerobic Blood Culture - Preliminary Blood Venous No Growth Day 1 Anaerobic Blood Culture - Final MRSA Blood Culture - Final Blood MRSA/MSSA (PCR) - Final Mrsa Positive S.aureus Positive Assess/Plan/Problems-Billing Assessment: Mr. Chopra is a 25 yo male with PMH significant for IV drug abuse, anxiety, depression and asthma who presented to the hospital with complaints of 5 weeks of low back pain without an injury. - Patient Problems (1) Renal abscess Code(s): N15.1 - RENAL AND PERINEPHRIC ABSCESS SNOMED Code(s): 5743401 Comment: - Fever 07/07 evening, leukocytosis - Blood cultures from 07/06 - 03/18 MRSA positive - Repeat blood cultures from 07/07, 03/18 MRSA positive - MRI - findings suspicious for pyelonephritis and bilateral renal abscesses - CT ABD/Pelvis - multiple bilateral complex cystic renal masses with one extending posteriorly on the left side involving the left psoas muscle - ID consult, input appreciated - Repeat ABD/Pelvis CT 07/10 - Multiple low density lesions in both kidneys some of which are forming fluid collections. Similar to previous CT. Exophytic abscess are noted along the left psoas margins with enlargement of the left psoas muscle - Radiology doesn't feel they would be able to get much fluid from any of the collections as they are not very large - Continue vanco (2) Bacteremia due to methicillin resistant Staphylococcus aureus Code(s): R78.81 - BACTEREMIA SNOMED Code(s): 40833931884439757 Comment: - MRSA / blood cultures positive from 07/06 - Repeat blood cultures from 07/07, 1/ blood cultures positive with MRSA - Urine cultures negative - TTE shows no vegitation on valves, no need for SANA. - Continue Vanco (3) Drug abuse Code(s): F19.10 - OTHER PSYCHOACTIVE SUBSTANCE ABUSE, UNCOMPLICATED SNOMED Code(s): 17438801 Comment: - Social work consult - Plan for discharge to [facility] when medically stable (4) DVT prophylaxis Code(s): MBH7592 - SNOMED Code(s): 976338117 Comment: - SCDs (5) Full code status Code(s): Z78.9 - OTHER SPECIFIED HEALTH STATUS SNOMED Code(s): 339146215 Status and Disposition: Inpatient. Estimated length of stay 2-3 days, Plan for discharge to inpatient drug rehab when medically stable.
[2016-07-11] MEDS: Vancomycin(*) 1,000 MG in NS 0.9% 250 ML* 250 ML IVPB SCH ×4 (03:04→19:33)
[2016-07-11] MEDS: HYDROmorphone* 2 MG/ML 1 ML SYR IV SLOW PU PRN ×6 (03:47→21:48)
[2016-07-11] MEDS: oxyCODONE/Acetamin 5/325 MG* TAB PO PRN ×4 (05:39→20:53)
[2016-07-11] MEDS ORDERED: NS 0.9% 250 ML* 250 ML ONE (08:06)
[2016-07-11] MEDS: Polyethylene Glycol 3350* 17 GM PACKET PO SCH (08:57)
[2016-07-11 10:53] LABS: Hematocrit 34 % (42-52); Hemoglobin 11.3 g/dl (14.0-18.0); Mean Corpuscular HGB Conc 34 g/dl (31-36); Mean Corpuscular Hemoglobin 29 pg (27-31); Mean Corpuscular Volume 87 fL (80-94); Mean Platelet Volume 7 um3 (7.4-10.4); Red Blood Count 3.84 10^6/ul (4.0-5.4); Red Cell Distribution Width 14 % (10.5-15); White Blood Count 12.4 10^3/ul (3.5-10.8)
--- NOTE | 2016-07-11 15:39 | PN ---
Subjective Date of Service: 07/11/16 Interval History: Patient complaining of abdominal pain stating that medication isnt holding him. Family History: Unchanged from Admission Social History: Unchanged from Admission Past Medical History: Unchanged from Admission Objective Active Medications: Acetaminophen (Tylenol Tab*) 650 mg PO Q6H PRN PRN Reason: FEVER/PAIN Baclofen (Lioresal Tab*) 10 mg PO TID PRN PRN Reason: SPASMS Last Admin: 07/08/16 22:22 Dose: 10 mg Hydromorphone HCl (Dilaudid Iv*) 2 mg IV SLOW PU Q4H PRN PRN Reason: PAIN Last Admin: 07/11/16 15:04 Dose: 2 mg Vancomycin HCl 1,000 mg/ (Sodium Chloride) 250 mls @ 166.667 mls/hr IVPB Q6H ASHLEY Last Admin: 07/11/16 15:10 Dose: 166.667 mls/hr Ibuprofen (Motrin Tab*) 600 mg PO Q6H PRN PRN Reason: PAIN Last Admin: 07/09/16 21:13 Dose: 600 mg Iohexol (Omnipaque 300* (Contrast)) 92 ml IV ONCE ASHLEY Stop: 07/12/16 23:59 Last Admin: 07/10/16 11:23 Dose: 92 ml Magnesium Hydroxide (Milk Of Magnesia Liq*) 30 ml PO Q6H PRN PRN Reason: CONSTIPATION Last Admin: 07/09/16 17:51 Dose: 30 ml Oxycodone/Acetaminophen (Percocet 5/325 Tab*) 1 tab PO Q4H PRN PRN Reason: PAIN - MILD TO MODERATE Last Admin: 07/10/16 19:19 Dose: 1 tab Oxycodone/Acetaminophen (Percocet 5/325 Tab*) 2 tab PO Q4H PRN PRN Reason: PAIN - MODERATE TO SEVERE Last Admin: 07/11/16 11:01 Dose: 2 tab Pharmacy Consult (Vancomycin Per Pharmacy*) 1 note FOLLOW UP . PRN PRN Reason: PER PROTOCOL Polyethylene Glycol/Electrolytes (Miralax*) 17 gm PO DAILY ASHLEY Last Admin: 07/11/16 08:57 Dose: Not Given Vital Signs 07/10/16 07/10/16 07/10/16 15:39 15:58 16:39 Temperature 98.9 F Pulse Rate 80 Respiratory 14 20 12 Rate Blood Pressure 134/61 (mmHg) O2 Sat by Pulse 100 Oximetry 07/10/16 07/10/16 07/10/16 19:19 19:40 20:00 Temperature Pulse Rate Respiratory 16 16 16 Rate Blood Pressure (mmHg) O2 Sat by Pulse Oximetry 07/10/16 07/10/16 07/10/16 20:40 21:19 23:31 Temperature 97.4 F Pulse Rate 82 Respiratory 16 16 16 Rate Blood Pressure 147/78 (mmHg) O2 Sat by Pulse 100 Oximetry 07/10/16 07/11/16 07/11/16 23:47 00:47 03:47 Temperature Pulse Rate Respiratory 16 16 20 Rate Blood Pressure (mmHg) O2 Sat by Pulse Oximetry 07/11/16 07/11/16 07/11/16 04:47 05:39 05:47 Temperature Pulse Rate Respiratory 14 16 16 Rate Blood Pressure (mmHg) O2 Sat by Pulse Oximetry 07/11/16 07/11/16 07/11/16 07:39 08:00 08:16 Temperature 98.0 F Pulse Rate 57 Respiratory 16 16 16 Rate Blood Pressure 112/56 (mmHg) O2 Sat by Pulse 100 Oximetry 07/11/16 07/11/16 07/11/16 08:20 09:20 11:01 Temperature Pulse Rate Respiratory 16 16 16 Rate Blood Pressure (mmHg) O2 Sat by Pulse Oximetry 07/11/16 07/11/16 07/11/16 12:30 13:01 13:30 Temperature Pulse Rate Respiratory 16 16 16 Rate Blood Pressure (mmHg) O2 Sat by Pulse Oximetry 07/11/16 15:04 Temperature Pulse Rate Respiratory 15 Rate Blood Pressure (mmHg) O2 Sat by Pulse Oximetry Oxygen Devices in Use Now: None Appearance: WD/WN young man sitting up in bed in NAD Eyes: PERRLA Ears/Nose/Mouth/Throat: Clear Oropharnyx Neck: No Thyroid Enlargement, Masses Respiratory: Clear to Auscultation Cardiovascular: NL Sounds; No Murmurs; No JVD, RRR Abdominal: No Hepatosplenomegaly, - - Slightly tender. No rebound guarding or rigidity Lymphatic: No Cervical Adenopathy Extremities: No Edema, No Clubbing, Cyanosis Skin: No Rash or Ulcers Neurological: Alert and Oriented x 3 Result Diagrams: 07/11/16 10:19 07/10/16 05:39 Additional Lab and Data: Microbiology and Other Data: Microbiology 07/07/16 19:12 Aerobic Blood Culture - Preliminary Blood Venous No Growth Day 1 Anaerobic Blood Culture - Preliminary No Growth Day 1 07/07/16 19:12 Aerobic Blood Culture - Preliminary Blood Venous No Growth Day 1 Anaerobic Blood Culture - Final MRSA Blood Culture - Final Blood MRSA/MSSA (PCR) - Final Mrsa Positive S.aureus Positive Assess/Plan/Problems-Billing Assessment: Mr. Chopra is a 25 yo male with PMH significant for IV drug abuse, anxiety, depression and asthma who presented to the hospital with complaints of 5 weeks of low back pain without an injury. - Patient Problems (1) Renal abscess Current Visit: Yes Status: Acute Code(s): N15.1 - RENAL AND PERINEPHRIC ABSCESS SNOMED Code(s): 7662463 Comment: - Still in pain - Repeat blood cultures from 07/07, 03/18 MRSA positive - ID consult, input appreciated - Repeat ABD/Pelvis CT 07/10 - Multiple low density lesions in both kidneys some of which are forming fluid collections. Similar to previous CT. Exophytic abscess are noted along the left psoas margins with enlargement of the left psoas muscle - Radiology doesn't feel they would be able to get much fluid from any of the collections as they are not very large - Continue vanco and monitor closely (2) Bacteremia due to methicillin resistant Staphylococcus aureus Current Visit: Yes Status: Acute Code(s): R78.81 - BACTEREMIA SNOMED Code( s): 70037607142627262 Comment: - Repeat blood cultures from 07/07, 03/18 blood cultures positive with MRSA - TTE shows no vegitation on valves, no need for SANA. - Continue Vanco (3) Drug abuse Current Visit: No Status: Chronic Priority: High Code(s): F19.10 - OTHER PSYCHOACTIVE SUBSTANCE ABUSE, UNCOMPLICATED SNOMED Code(s): 51968141 Comment: - Social work consult - Discharge to [facility] when stable (4) DVT prophylaxis Current Visit: Yes Status: Acute Code(s): MBP9551 - SNOMED Code(s): 356671761 Comment: - SCDs (5) Full code status Current Visit: Yes Status: Acute Code(s): Z78.9 - OTHER SPECIFIED HEALTH STATUS SNOMED Code(s): 492312053 Status and Disposition: Inpatient. Estimated length of stay 2-3 days, Plan for discharge to inpatient drug rehab when medically stable.
[2016-07-11] MEDS: Magnesium Hydroxide LIQ* 30 ML UDC PO PRN (19:43)
[2016-07-12] MEDS: HYDROmorphone* 2 MG/ML 1 ML SYR IV SLOW PU PRN ×7 (00:48→20:58)
[2016-07-12] MEDS: Vancomycin(*) 1,000 MG in NS 0.9% 250 ML* 250 ML IVPB SCH ×4 (01:58→20:14)
[2016-07-12] MEDS ORDERED: NS 0.9% 250 ML* 250 ML ONE (08:17)
--- NOTE | 2016-07-12 08:41 | PN ---
Subjective Date of Service: 07/12/16 Interval History: Mr. Chopra reports that pain is still an issue but is better with dosing changes that occurred yesterday. He denies CP, SOB, abd pain, n/v. He reports his pain is worse after sleeping because of how he is laying. No other acute concerns. Family History: Unchanged from Admission Social History: Unchanged from Admission Past Medical History: Unchanged from Admission Objective Active Medications: Acetaminophen (Tylenol Tab*) 650 mg PO Q6H PRN PRN Reason: FEVER/PAIN Baclofen (Lioresal Tab*) 10 mg PO TID PRN PRN Reason: SPASMS Last Admin: 07/08/16 22:22 Dose: 10 mg Hydromorphone HCl (Dilaudid Iv*) 2 mg IV SLOW PU Q3H PRN PRN Reason: PAIN Last Admin: 07/12/16 08:31 Dose: 2 mg Vancomycin HCl 1,000 mg/ (Sodium Chloride) 250 mls @ 166.667 mls/hr IVPB Q6H ASHLEY Last Admin: 07/12/16 08:32 Dose: 166.667 mls/hr Ibuprofen (Motrin Tab*) 600 mg PO Q6H PRN PRN Reason: PAIN Last Admin: 07/09/16 21:13 Dose: 600 mg Iohexol (Omnipaque 300* (Contrast)) 92 ml IV ONCE ASHLEY Stop: 07/12/16 23:59 Last Admin: 07/10/16 11:23 Dose: 92 ml Magnesium Hydroxide (Milk Of Magnesia Liq*) 30 ml PO Q6H PRN PRN Reason: CONSTIPATION Last Admin: 07/11/16 19:43 Dose: 30 ml Oxycodone/Acetaminophen (Percocet 5/325 Tab*) 1 tab PO Q4H PRN PRN Reason: PAIN - MILD TO MODERATE Last Admin: 07/11/16 17:38 Dose: 1 tab Oxycodone/Acetaminophen (Percocet 5/325 Tab*) 2 tab PO Q4H PRN PRN Reason: PAIN - MODERATE TO SEVERE Last Admin: 07/11/16 20:53 Dose: 2 tab Pharmacy Consult (Vancomycin Per Pharmacy*) 1 note FOLLOW UP . PRN PRN Reason: PER PROTOCOL Polyethylene Glycol/Electrolytes (Miralax*) 17 gm PO DAILY ASHLEY Last Admin: 07/11/16 08:57 Dose: Not Given Vital Signs 07/11/16 07/11/16 07/11/16 09:20 11:01 12:30 Temperature Pulse Rate Respiratory 16 16 16 Rate Blood Pressure (mmHg) O2 Sat by Pulse Oximetry 07/11/16 07/11/16 07/11/16 13:01 13:30 15:04 Temperature Pulse Rate Respiratory 16 16 15 Rate Blood Pressure (mmHg) O2 Sat by Pulse Oximetry 07/11/16 07/11/16 07/11/16 15:51 16:04 17:04 Temperature 98.0 F Pulse Rate 52 Respiratory 20 16 18 Rate Blood Pressure 118/48 (mmHg) O2 Sat by Pulse 97 Oximetry 07/11/16 07/11/16 07/11/16 17:38 18:37 19:37 Temperature Pulse Rate Respiratory 18 16 16 Rate Blood Pressure (mmHg) O2 Sat by Pulse Oximetry 07/11/16 07/11/16 07/11/16 19:38 20:00 20:37 Temperature Pulse Rate Respiratory 16 16 16 Rate Blood Pressure (mmHg) O2 Sat by Pulse Oximetry 07/11/16 07/11/16 07/11/16 20:53 21:37 21:38 Temperature Pulse Rate Respiratory 16 16 16 Rate Blood Pressure (mmHg) O2 Sat by Pulse Oximetry 07/11/16 07/11/16 07/11/16 21:48 22:37 22:48 Temperature Pulse Rate Respiratory 16 16 16 Rate Blood Pressure (mmHg) O2 Sat by Pulse Oximetry 07/11/16 07/11/16 07/11/16 22:53 23:37 23:38 Temperature 97.9 F Pulse Rate 62 Respiratory 16 16 16 Rate Blood Pressure 125/53 (mmHg) O2 Sat by Pulse 100 Oximetry 07/12/16 07/12/16 07/12/16 00:48 01:48 04:00 Temperature Pulse Rate Respiratory 16 16 16 Rate Blood Pressure (mmHg) O2 Sat by Pulse Oximetry 07/12/16 07/12/16 05:00 08:31 Temperature Pulse Rate Respiratory 16 16 Rate Blood Pressure (mmHg) O2 Sat by Pulse Oximetry Oxygen Devices in Use Now: None Appearance: Mildly ill-appearing, young male patient, lying in bed Eyes: PERRLA Ears/Nose/Mouth/Throat: Mucous Membranes Moist Respiratory: Symmetrical Chest Expansion and Respiratory Effort, Clear to Auscultation Cardiovascular: NL Sounds; No Murmurs; No JVD, RRR Abdominal: NL Sounds; No Tenderness; No Distention, - - mild left CVA tenderness Extremities: No Edema Skin: No Rash or Ulcers Neurological: Alert and Oriented x 3, NL Muscle Strength and Tone Lines/Tubes/Other Access: Clean, Dry and Intact Peripheral IV Nutrition: Taking PO's Result Diagrams: 07/11/16 10:19 07/10/16 05:39 Additional Lab and Data: Microbiology and Other Data: Microbiology 07/07/16 19:12 Aerobic Blood Culture - Preliminary Blood Venous No Growth Day 1 Anaerobic Blood Culture - Preliminary No Growth Day 1 07/07/16 19:12 Aerobic Blood Culture - Preliminary Blood Venous No Growth Day 1 Anaerobic Blood Culture - Final MRSA Blood Culture - Final Blood MRSA/MSSA (PCR) - Final Mrsa Positive S.aureus Positive Assess/Plan/Problems-Billing Assessment: Mr. Chopra is a 25 yo male with PMH significant for IV drug abuse, anxiety, depression and asthma who presented to the hospital with complaints of 5 weeks of low back pain without an injury. - Patient Problems (1) Renal abscess Current Visit: Yes Status: Acute Code(s): N15.1 - RENAL AND PERINEPHRIC ABSCESS SNOMED Code(s): 1041197 Comment: Pain continues to be an issue. Continue current pain management and monitor closely. Repeat blood cultures from 07/07, 03/18 MRSA positive. ID input appreciated Continue vancomycin with close monitoring. Repeat ABD/Pelvis CT 07/10 - Multiple low density lesions in both kidneys some of which are forming fluid collections. Similar to previous CT. Exophytic abscess are noted along the left psoas margins with enlargement of the left psoas muscle. Radiology doesn't feel they would be able to get much fluid from any of the collections as they are not very large. (2) Bacteremia due to methicillin resistant Staphylococcus aureus Code(s): R78.81 - BACTEREMIA Comment: Repeat blood cultures from 07/07, 03/18 blood cultures positive with MRSA TTE shows no vegetation on valves, no need for SANA. Continue vancomycin. (3) Drug abuse Code(s): F19.10 - OTHER PSYCHOACTIVE SUBSTANCE ABUSE, UNCOMPLICATED Comment: Social work consult Discharge to [facility] when stable (4) DVT prophylaxis Status: Acute Code(s): ITK2572 - Comment: SCDs Encourage ambulation (5) Full code status Code(s): Z78.9 - OTHER SPECIFIED HEALTH STATUS Status and Disposition: Inpatient. Estimated length of stay 2-3 days, Plan for discharge to inpatient drug rehab when medically stable.
[2016-07-12] MEDS: Polyethylene Glycol 3350* 17 GM PACKET PO SCH (10:33)
[2016-07-13] MEDS: HYDROmorphone* 2 MG/ML 1 ML SYR IV SLOW PU PRN ×7 (00:15→21:36)
[2016-07-13] MEDS: Vancomycin(*) 1,000 MG in NS 0.9% 250 ML* 250 ML IVPB SCH (02:06)
[2016-07-13 06:23] LABS: Hematocrit 33 % (42-52); Mean Corpuscular HGB Conc 34 g/dl (31-36); Mean Corpuscular Hemoglobin 29 pg (27-31); Mean Corpuscular Volume 87 fL (80-94); Mean Platelet Volume 7 um3 (7.4-10.4); Red Blood Count 3.75 10^6/ul (4.0-5.4); Red Cell Distribution Width 14 % (10.5-15); White Blood Count 10.9 10^3/ul (3.5-10.8)
[2016-07-13 07:17] LABS: Vancomycin Trough 23.5 mcg/mL
[2016-07-13 07:18] LABS: BUN/Creatinine Ratio 6.3 (8-20); Calcium 9.5 mg/dL (8.6-10.3); EGFR African American 124.8 (>60); EGFR Non-African American 97.1 (>60)
[2016-07-13] MEDS ORDERED: Vancomycin Trough Check NOTE FOLLOW UP ONE (07:30)
--- NOTE | 2016-07-13 07:54 | PN ---
Subjective Date of Service: 07/13/16 Interval History: Patient continues to report pain but states last night was worse because his IV went bad. He reports pain to the arm where the IV infiltrated. His pain is most consistently to the left flank and left back. Denies CP, SOB, n/v. Family History: Unchanged from Admission Social History: Unchanged from Admission Past Medical History: Unchanged from Admission Objective Active Medications: Acetaminophen (Tylenol Tab*) 650 mg PO Q6H PRN PRN Reason: FEVER/PAIN Baclofen (Lioresal Tab*) 10 mg PO TID PRN PRN Reason: SPASMS Last Admin: 07/08/16 22:22 Dose: 10 mg Hydromorphone HCl (Dilaudid Iv*) 2 mg IV SLOW PU Q3H PRN PRN Reason: PAIN Last Admin: 07/13/16 04:13 Dose: 2 mg Vancomycin HCl 1,250 mg/ (Sodium Chloride) 250 mls @ 166.667 mls/hr IVPB Q8H ASHLEY Ibuprofen (Motrin Tab*) 600 mg PO Q6H PRN PRN Reason: PAIN Last Admin: 07/09/16 21:13 Dose: 600 mg Magnesium Hydroxide (Milk Of Magnlino Liq*) 30 ml PO Q6H PRN PRN Reason: CONSTIPATION Last Admin: 07/11/16 19:43 Dose: 30 ml Oxycodone/Acetaminophen (Percocet 5/325 Tab*) 1 tab PO Q4H PRN PRN Reason: PAIN - MILD TO MODERATE Last Admin: 07/11/16 17:38 Dose: 1 tab Oxycodone/Acetaminophen (Percocet 5/325 Tab*) 2 tab PO Q4H PRN PRN Reason: PAIN - MODERATE TO SEVERE Last Admin: 07/11/16 20:53 Dose: 2 tab Pharmacy Consult (Vancomycin Per Pharmacy*) 1 note FOLLOW UP . PRN PRN Reason: PER PROTOCOL Pharmacy Profile Note (Vancomycin Trough Check) 1 note FOLLOW UP 829 ONE Stop: 07/15/16 08:31 Polyethylene Glycol/Electrolytes (Miralax*) 17 gm PO DAILY ASHLEY Last Admin: 07/12/16 10:33 Dose: Not Given Vital Signs 07/12/16 07/12/16 07/12/16 08:00 08:31 09:31 Temperature Pulse Rate Respiratory 16 16 16 Rate Blood Pressure (mmHg) O2 Sat by Pulse Oximetry 07/12/16 07/12/16 07/12/16 10:05 11:34 12:34 Temperature 98.8 F Pulse Rate 77 Respiratory 16 18 16 Rate Blood Pressure 141/59 (mmHg) O2 Sat by Pulse 97 Oximetry 07/12/16 07/12/16 07/12/16 13:34 14:36 15:36 Temperature Pulse Rate Respiratory 16 16 16 Rate Blood Pressure (mmHg) O2 Sat by Pulse Oximetry 07/12/16 07/12/16 07/12/16 15:54 17:34 17:42 Temperature 98.2 F Pulse Rate 71 Respiratory 18 16 16 Rate Blood Pressure 128/49 (mmHg) O2 Sat by Pulse 97 Oximetry 07/12/16 07/12/16 07/12/16 18:42 19:42 20:00 Temperature Pulse Rate Respiratory 16 16 16 Rate Blood Pressure (mmHg) O2 Sat by Pulse Oximetry 07/12/16 07/12/16 07/12/16 20:58 21:41 21:58 Temperature 99.6 F Pulse Rate 64 Respiratory 18 16 18 Rate Blood Pressure 125/51 (mmHg) O2 Sat by Pulse 98 Oximetry 07/13/16 07/13/16 07/13/16 00:15 01:15 02:15 Temperature Pulse Rate Respiratory 16 16 16 Rate Blood Pressure (mmHg) O2 Sat by Pulse Oximetry 07/13/16 07/13/16 04:13 05:13 Temperature Pulse Rate Respiratory 16 16 Rate Blood Pressure (mmHg) O2 Sat by Pulse Oximetry Oxygen Devices in Use Now: None Appearance: Young male, lying in bed, appears uncomfortable. Eyes: PERRLA Ears/Nose/Mouth/Throat: Mucous Membranes Moist Respiratory: Symmetrical Chest Expansion and Respiratory Effort, Clear to Auscultation Cardiovascular: NL Sounds; No Murmurs; No JVD, RRR Abdominal: - - left CVA/flank tenderness, BS present, abd soft Extremities: No Edema Skin: - - right inner forearm swelling with mild erythema, tender to touch Neurological: Alert and Oriented x 3 Lines/Tubes/Other Access: Clean, Dry and Intact Peripheral IV Nutrition: Taking PO's Result Diagrams: 07/13/16 06:07 07/13/16 06:07 Additional Lab and Data: Microbiology and Other Data: Microbiology 07/07/16 19:12 Aerobic Blood Culture - Preliminary Blood Venous No Growth Day 1 Anaerobic Blood Culture - Preliminary No Growth Day 1 07/07/16 19:12 Aerobic Blood Culture - Preliminary Blood Venous No Growth Day 1 Anaerobic Blood Culture - Final MRSA Blood Culture - Final Blood MRSA/MSSA (PCR) - Final Mrsa Positive S.aureus Positive Assess/Plan/Problems-Billing Assessment: Mr. Chopra is a 25 yo male with PMH significant for IV drug abuse, anxiety, depression and asthma who presented to the hospital with complaints of 5 weeks of low back pain without an injury. - Patient Problems (1) Renal abscess Current Visit: Yes Status: Acute Code(s): N15.1 - RENAL AND PERINEPHRIC ABSCESS SNOMED Code(s): 5531227 Comment: Pain continues to be an issue. Continue current pain management and monitor closely. Repeat blood cultures from 07/07, 03/18 MRSA positive. ID input appreciated Continue vancomycin with close monitoring. Repeat ABD/Pelvis CT 07/10 - Multiple low density lesions in both kidneys some of which are forming fluid collections. Similar to previous CT. Exophytic abscess are noted along the left psoas margins with enlargement of the left psoas muscle. Radiology doesn't feel they would be able to get much fluid from any of the collections as they are not very large. (2) Bacteremia due to methicillin resistant Staphylococcus aureus Code(s): R78.81 - BACTEREMIA Comment: Repeat blood cultures from 07/07, 03/18 blood cultures positive with MRSA TTE shows no vegetation on valves, no need for SANA. Continue vancomycin. (3) Drug abuse Code(s): F19.10 - OTHER PSYCHOACTIVE SUBSTANCE ABUSE, UNCOMPLICATED Comment: Social work consult Discharge to [facility] when stable (4) DVT prophylaxis Status: Acute Code(s): [id number] - Comment: SCDs Encourage ambulation (5) Full code status Code(s): Z78.9 - OTHER SPECIFIED HEALTH STATUS Status and Disposition: Inpatient. Estimated length of stay 2-3 days, Plan for discharge to inpatient drug rehab when medically stable.
[2016-07-13] MEDS: Polyethylene Glycol 3350* 17 GM PACKET PO SCH (08:14)
[2016-07-13] MEDS: Vancomycin(*) 1,250 MG in NS 0.9% 250 ML* 250 ML IVPB SCH ×2 (08:19→17:29)
[2016-07-13 09:48] LABS: C Reactive Protein 151.83 mg/L (< 5.00)
--- NOTE | 2016-07-13 12:32 | PN ---
Progress Note - Progress Note SOAP: Subjective: DOS: 07/13/16 CC: fever HPI: 25 yo man recent IVDU, no with back pain and fever. No fever, chills, sweats. Low back pain down to a 4 , does not radiate, moving leg does not make it worse anymore. No nausea, fever, rash or diarrhea. Objective: [] Vital Signs Temp 37.6 C 07/12/16 21:41 Pulse 64 07/12/16 21:41 Resp 16 07/13/16 11:14 BP 125/51 07/12/16 21:41 Pulse Ox 98 07/12/16 21:41 Intake & Output 07/12/16 07/13/16 07/13/16 18:59 06:59 18:59 Intake Total 220 690 0 Balance 220 690 0 Intake: IVPB 250 ABX - VANCOMYCIN 250 Oral 220 440 0 Other: Estimated Void Medium Medium # Bowel Movements 0 # Voids 3 1 Gen:No distress Neuro: AAOx3 HEENT:PERRL, MMM Neck:supple Heart:RRR no murmur Lungs:CTA BL Abd:+BS NTND soft Skin: No rash MSK: no spine tenderness, paraspinal low back tenderness Laboratory Results - last 24 hr 07/13/16 07/13/16 06:07 06:07 WBC 10.9 H RBC 3.75 L Hgb 11.0 L Hct 33 L MCV 87 MCH 29 MCHC 34 RDW 14 Plt Count 441 MPV 7 L Neut % (Auto) 60.3 Lymph % (Auto) 24.2 L Wake % (Auto) 11.6 H Eos % (Auto) 3.1 Baso % (Auto) 0.8 Absolute Neuts (auto) 6.5 Absolute Lymphs (auto) 2.6 Absolute Monos (auto) 1.3 H Absolute Eos (auto) 0.3 Absolute Basos (auto) 0.1 Absolute Nucleated RBC 0 Nucleated RBC % 0 Sodium 135 Potassium 4.0 Chloride 100 L Carbon Dioxide 25 Anion Gap 10 BUN 6 Creatinine 0.96 Est GFR ( Amer) 124.8 Est GFR (Non-Af Amer) 97.1 BUN/Creatinine Ratio 6.3 L Glucose 147 H Calcium 9.5 C-Reactive Protein 151.83 H Vancomycin Trough 23.5 CT AP : no change in size of renal abscess bilaterally Assessment: 1. Bilateral renal abscess due to MRSA, steady improvement in CRP and back and abdominal pain 2. Left psoas abscess due to MRSA 3. septicemia, present on admission, due to MRSA bacteremia. Low pre test probablity for infective endocarditis and the TTE is negative so will not pursue SANA. 4. IVDU in brief remission 5. Hepatitis C 6. constipation Plan: 1. continue vancomycin goal tr 15-20, day 7/-56. 2. scheduled ibuprofen Discussed with Dr Nails 35 minutes floor time >50% face to face in counseling with Travis and his mother regarding CT results, blood test results, discussion of next steps for antibiotic therapy; particularly that because the CRP and his pain are steadily improving and that IR does not feel the collections are large enough to drain I do not recommend an aspiration at this point. All questions answered.
[2016-07-14] MEDS: HYDROmorphone* 2 MG/ML 1 ML SYR IV SLOW PU PRN ×8 (00:50→22:49)
[2016-07-14] MEDS: Vancomycin(*) 1,250 MG in NS 0.9% 250 ML* 250 ML IVPB SCH ×2 (00:53→08:31)
[2016-07-14] MEDS: Polyethylene Glycol 3350* 17 GM PACKET PO SCH (07:28)
--- NOTE | 2016-07-14 11:27 | PN ---
Subjective Date of Service: 07/14/16 Interval History: Patient reports right arm pain from IV infiltration is better; reports persistent pain to left flank that remains roughly unchanged. It does improve with pain medicine. No other acute complaints. Family History: Unchanged from Admission Social History: Unchanged from Admission Past Medical History: Unchanged from Admission Objective Active Medications: Acetaminophen (Tylenol Tab*) 650 mg PO Q6H PRN PRN Reason: FEVER/PAIN Baclofen (Lioresal Tab*) 10 mg PO TID PRN PRN Reason: SPASMS Last Admin: 07/08/16 22:22 Dose: 10 mg Hydromorphone HCl (Dilaudid Iv*) 2 mg IV SLOW PU Q3H PRN PRN Reason: PAIN Last Admin: 07/14/16 10:38 Dose: 2 mg Vancomycin HCl 1,250 mg/ (Sodium Chloride) 250 mls @ 166.667 mls/hr IVPB Q8H ASHLEY Last Admin: 07/14/16 08:31 Dose: 166.667 mls/hr Ibuprofen (Motrin Tab*) 600 mg PO Q6H PRN PRN Reason: PAIN Last Admin: 07/09/16 21:13 Dose: 600 mg Magnesium Hydroxide (Milk Of Magnlino Liq*) 30 ml PO Q6H PRN PRN Reason: CONSTIPATION Last Admin: 07/11/16 19:43 Dose: 30 ml Pharmacy Consult (Vancomycin Per Pharmacy*) 1 note FOLLOW UP . PRN PRN Reason: PER PROTOCOL Pharmacy Profile Note (Vancomycin Trough Check) 1 note FOLLOW UP 0830 ONE Stop: 07/15/16 08:31 Polyethylene Glycol/Electrolytes (Miralax*) 17 gm PO DAILY [facility] Last Admin: 07/14/16 07:28 Dose: Not Given Vital Signs 07/13/16 07/13/16 07/13/16 14:24 15:50 16:31 Temperature 97.8 F Pulse Rate 66 Respiratory 17 16 14 Rate Blood Pressure 132/63 (mmHg) O2 Sat by Pulse 97 Oximetry 07/13/16 07/13/16 07/13/16 17:29 18:29 20:00 Temperature Pulse Rate Respiratory 16 16 15 Rate Blood Pressure (mmHg) O2 Sat by Pulse Oximetry 07/13/16 07/13/16 07/13/16 21:36 22:36 23:32 Temperature 98.2 F Pulse Rate 62 Respiratory 16 15 16 Rate Blood Pressure 132/64 (mmHg) O2 Sat by Pulse 100 Oximetry 07/14/16 07/14/16 07/14/16 00:50 01:50 03:45 Temperature Pulse Rate Respiratory 17 17 16 Rate Blood Pressure (mmHg) O2 Sat by Pulse Oximetry 07/14/16 07/14/16 07/14/16 04:45 07:24 07:50 Temperature 98.0 F Pulse Rate 51 Respiratory 15 16 16 Rate Blood Pressure 109/50 (mmHg) O2 Sat by Pulse 98 Oximetry 07/14/16 07/14/16 07/14/16 08:00 08:24 10:38 Temperature Pulse Rate Respiratory 16 16 16 Rate Blood Pressure (mmHg) O2 Sat by Pulse Oximetry Oxygen Devices in Use Now: None Appearance: Young male, sitting up in bed, NAD Eyes: PERRLA Ears/Nose/Mouth/Throat: Mucous Membranes Moist Respiratory: Symmetrical Chest Expansion and Respiratory Effort, Clear to Auscultation Cardiovascular: NL Sounds; No Murmurs; No JVD, RRR Abdominal: - - abd soft, BS present, left flank tenderness Extremities: No Edema Skin: No Rash or Ulcers Neurological: Alert and Oriented x 3 Lines/Tubes/Other Access: Clean, Dry and Intact Peripheral IV Result Diagrams: 07/13/16 06:07 07/13/16 06:07 Additional Lab and Data: Microbiology and Other Data: Microbiology 07/07/16 19:12 Aerobic Blood Culture - Preliminary Blood Venous No Growth Day 1 Anaerobic Blood Culture - Preliminary No Growth Day 1 07/07/16 19:12 Aerobic Blood Culture - Preliminary Blood Venous No Growth Day 1 Anaerobic Blood Culture - Final MRSA Blood Culture - Final Blood MRSA/MSSA (PCR) - Final Mrsa Positive S.aureus Positive Assess/Plan/Problems-Billing Assessment: Mr. Chopra is a 25 yo male with PMH significant for IV drug abuse, anxiety, depression and asthma who presented to the hospital with complaints of 5 weeks of low back pain without an injury. - Patient Problems (1) Renal abscess Current Visit: Yes Status: Acute Code(s): N15.1 - RENAL AND PERINEPHRIC ABSCESS SNOMED Code(s): 9351185 Comment: Pain continues to be an issue. Continue current pain management and monitor closely. Repeat blood cultures from 07/07, 03/18 MRSA positive. ID input appreciated Continue vancomycin with close monitoring. Repeat ABD/Pelvis CT 07/10 - Multiple low density lesions in both kidneys some of which are forming fluid collections. Similar to previous CT. Exophytic abscess are noted along the left psoas margins with enlargement of the left psoas muscle. Radiology doesn't feel they would be able to get much fluid from any of the collections as they are not very large. (2) Bacteremia due to methicillin resistant Staphylococcus aureus Code(s): R78.81 - BACTEREMIA Comment: Repeat blood cultures from 07/07, 03/18 blood cultures positive with MRSA TTE shows no vegetation on valves, no need for SANA. Continue vancomycin. (3) Drug abuse Code(s): F19.10 - OTHER PSYCHOACTIVE SUBSTANCE ABUSE, UNCOMPLICATED Comment: Social work consult Discharge to [facility] when stable (4) DVT prophylaxis Status: Acute Code(s): QBI1462 - Comment: SCDs Encourage ambulation (5) Full code status Code(s): Z78.9 - OTHER SPECIFIED HEALTH STATUS Status and Disposition: Inpatient. Anticipate need for 4-6 weeks of IV abx, Plan for discharge to inpatient drug rehab when medically stable.
[2016-07-15] MEDS: HYDROmorphone* 2 MG/ML 1 ML SYR IV SLOW PU PRN ×3 (01:49→08:49)
[2016-07-15] MEDS: Polyethylene Glycol 3350* 17 GM PACKET PO SCH (07:07)
[2016-07-15] MEDS ORDERED: Vancomycin Trough Check NOTE FOLLOW UP ONE (08:30)
[2016-07-15 08:46] VITALS: BP 117/60
--- NOTE | 2016-07-15 10:47 | PN ---
Subjective Date of Service: 07/15/16 Interval History: Patient seen and examined at bedside. Patient states that he continues to have left flank and abdominal pain. Denies fever, chills, shortness of breath, chest discomfort, N/V/D. Pt continues to report constipation and encouraged to take Miralax daily. Family History: Unchanged from Admission Social History: Unchanged from Admission Past Medical History: Unchanged from Admission Objective Active Medications: Acetaminophen (Tylenol Tab*) 650 mg PO Q6H PRN Reason: FEVER/PAIN Baclofen (Lioresal Tab*) 10 mg PO TID PRN Reason: SPASMS Hydromorphone HCl (Dilaudid Iv*) 2 mg IV SLOW PU Q3H PRN Reason: PAIN Linezolid (Zyvox 600 Mg Ivpremix(*)) 600 mg in 300 mls @ 300 mls/hr IVPB Q12H ASHLEY Ibuprofen (Motrin Tab*) 600 mg PO Q6H PRN Reason: PAIN Magnesium Hydroxide (Milk Of Magnesia Liq*) 30 ml PO Q6H PRN Reason: CONSTIPATION Polyethylene Glycol/Electrolytes (Miralax*) 17 gm PO DAILY [facility] Vital Signs 07/14/16 07/14/16 07/14/16 14:42 15:29 15:56 Temperature 98.0 F Pulse Rate 74 Respiratory 16 16 Rate Blood Pressure 142/74 (mmHg) O2 Sat by Pulse 100 Oximetry 07/14/16 07/14/16 07/15/16 23:41 23:49 01:49 Temperature 98.2 F Pulse Rate 68 Respiratory 16 16 16 Rate Blood Pressure 127/61 (mmHg) O2 Sat by Pulse 99 Oximetry 07/15/16 07/15/16 07/15/16 02:49 05:47 07:28 Temperature Pulse Rate 63 Respiratory 16 16 16 Rate Blood Pressure 117/60 (mmHg) O2 Sat by Pulse 98 Oximetry Oxygen Devices in Use Now: None Appearance: NAD, laying in bed Ears/Nose/Mouth/Throat: Mucous Membranes Moist Respiratory: Symmetrical Chest Expansion and Respiratory Effort, Clear to Auscultation Cardiovascular: NL Sounds; No Murmurs; No JVD, RRR Abdominal: - - Bowel sounds present, Abdomen soft, Pt reports diffuse abdominal tenderness. Left flank tenderness Extremities: No Edema Skin: No Rash or Ulcers Neurological: Alert and Oriented x 3, NL Muscle Strength and Tone Lines/Tubes/Other Access: Clean, Dry and Intact Peripheral IV - site benign Nutrition: Taking PO's Result Diagrams: 07/13/16 06:07 07/13/16 06:07 Additional Lab and Data: Microbiology and Other Data: Microbiology 07/07/16 19:12 Aerobic Blood Culture - Preliminary Blood Venous No Growth Day 1 Anaerobic Blood Culture - Preliminary No Growth Day 1 07/07/16 19:12 Aerobic Blood Culture - Preliminary Blood Venous No Growth Day 1 Anaerobic Blood Culture - Final MRSA Blood Culture - Final Blood MRSA/MSSA (PCR) - Final Mrsa Positive S.aureus Positive Assess/Plan/Problems-Billing Assessment: Mr. Chopra is a 25 yo male with PMH significant for IV drug abuse, anxiety, depression and asthma who presented to the hospital with complaints of 5 weeks of low back pain without an injury. - Patient Problems (1) Renal abscess Code(s): N15.1 - RENAL AND PERINEPHRIC ABSCESS SNOMED Code(s): 9630501 Comment: - Continues to report pain - Repeat blood cultures from 07/07, 03/18 MRSA positive. - ID input appreciated - Repeat ABD/Pelvis CT 07/10 - Multiple low density lesions in both kidneys some of which are forming fluid collections. Similar to previous CT. Exophytic abscess are noted along the left psoas margins with enlargement of the left psoas muscle. - Radiology doesn't feel they would be able to get much fluid from any of the collections as they are not very large. - Vancomycin stopped and started on Linezolid (2) Bacteremia due to methicillin resistant Staphylococcus aureus Code(s): R78.81 - BACTEREMIA SNOMED Code(s): 47821280340443471 Comment: - Repeat blood cultures from 07/07, 03/18 blood cultures positive with MRSA - TTE shows no vegetation on valves, no need for SANA - Continue Linezolid (3) Constipation Code(s): K59.00 - CONSTIPATION, UNSPECIFIED SNOMED Code(s): 09234707 Comment: - Pt encouraged to follow bowel regime - Continue Miralax daily and PRN MOM (4) Drug abuse Code(s): F19.10 - OTHER PSYCHOACTIVE SUBSTANCE ABUSE, UNCOMPLICATED SNOMED Code(s): 47735150 Comment: - Social work consult - Discharge to [facility] after course of ABX, if bed is available (5) DVT prophylaxis Code(s): JZN9822 - SNOMED Code(s): 814967425 Comment: SCDs Encourage ambulation (6) Full code status Code(s): Z78.9 - OTHER SPECIFIED HEALTH STATUS SNOMED Code(s): 683789778 Status and Disposition: Inpatient. Anticipate need for 4-6 weeks of IV abx, Plan for discharge to inpatient drug rehab when medically stable. Stable for discharge to swing bed status
[2016-07-15] MEDS ORDERED: oxyCODONE/Acetamin 5/325 MG* TAB PO PRN ×2 (11:16→11:17)
[2016-07-15] MEDS ORDERED: HYDROmorphone* 2 MG/ML 1 ML SYR IV SLOW PU PRN (11:16)
[2016-07-15] MEDS ORDERED: Linezolid 600 MG IVPREMIX(*) 600 MG/300 ML BAG IVPB SCH (20:00)
--- NOTE | 2016-07-15 22:31 | DS ---
DISCHARGE SUMMARY: DATE OF ADMISSION: 07/06/16 DATE OF DISCHARGE: 07/15/16 to swing bed status. ATTENDING PHYSICIAN: Nasrin Hernandez MD * (dictated by Piper Hong NP) PRIMARY DIAGNOSES: 1. Bilateral renal abscesses with left psoas abscess due to MRSA. 2. MRSA bacteremia. 3. Constipation. 4. IV drug use. SECONDARY DIAGNOSES: 1. Hepatitis C. 2. Schizophrenia. 3. Bipolar. 4. Anxiety. 5. Depression. CONSULTATIONS WHILE IN THE HOSPITAL: Tristin Steve MD with Infectious Disease. STUDIES WHILE IN THE HOSPITAL: 1. Lumbar spine MRI on 07/06/16. Radiologist's impression: Mild scoliosis. Otherwise unremarkable MRI of the lumbar spine. There are no appreciable epidural fluid collections. There is no bone edema or endplate irregularity to suggest osteomyelitis/diskitis. 2. Chest x-ray on 07/06/16. Radiologist's impression: No evidence for acute intrathoracic disease. 3. Lumbar spine MRI with contrast on 07/06/16. Radiologist's impression: Findings suspicious for pyelonephritis and bilateral renal abscesses, limited study, no evidence for discitis or osteomyelitis. 4. Abdomen and pelvis CT on 07/06/16. Radiologist's impression: There are multiple bilateral complex cystic renal masses with one extending posteriorly on the left side involving the left psoas muscle. These findings are nonspecific although given the patient's clinical history would be most consistent with multiple abscesses. Recommend clinical correlation and followup to resolution. 5. Transthoracic echocardiogram on 07/07/16. Conclusion: Mild concentric left ventricular hypertrophy is observed. Global left ventricular wall motion and contractility are within normal limits. Estimated ejection fraction is 60% to 65%. The right ventricular global systolic function is normal. All valves appear structurally normal and were well visualized, no vegetation seen. There is mild mitral regurgitation, mild tricuspid regurgitation. No prior echo for comparison. 6. Abdomen and pelvis CT scan on 07/10/16. Radiologist's impression: Multiple low-density lesions in both kidneys some of which are forming fluid collections. Findings are on the spectrum of renal abscesses versus lobular nephronia. The extent of this appears to be similar to that seen previously on 07/06/16. Additionally, exophytic abscesses are noted along the left psoas margins with enlargement of the left psoas muscle. CURRENT HOSPITAL MEDICATIONS: 1. Acetaminophen 650 mg oral every 6 hours as needed for fever or pain. 2. Baclofen 10 mg oral 3 times daily for muscle spasms. 3. Dilaudid 2 mg IV push every 6 hours as needed for breakthrough pain. 4. Ibuprofen 600 mg oral every 6 hours as needed for pain. 5. Milk of magnesia 30 mL oral every 6 hours as needed for constipation. 6. MiraLAX 17 g oral daily. 7. Linezolid 600 mg IV every 12 hours. 8. Percocet 1 tablet oral every 4 hours as needed for mild to moderate pain. 9. Percocet 2 tablets oral every 4 hours as needed for moderate to severe pain. HISTORY OF PRESENT ILLNESS/HOSPITAL COURSE: Mr. Chopra is a 25-year-old male with past medical history significant for IV drug abuse, anxiety, depression, ADHD, schizophrenia, and bipolar who presented to the emergency room with complaints of 5 weeks of back pain that become worse over a week's time. The patient was homeless and had reportedly been sleeping and stairwells and other areas and had felt that this was the cause to his back pain. The patient denied any lifting or moving of heavy objects that could have contributed to his pain. The patient was in drug rehab for week and placed on methadone taper with plans to be discharged to go to a local drug treatment center. The patient decided to presented to the emergency room for further evaluation of his back pain. While in the emergency room, the patient had labs that were significant for an elevated white blood cell count of 13.1, CRP of 223.27. The patient was afebrile. He had a noncontrast and contrasted MRI showing no signs of osteomyelitis or diskitis. Based off the patient's presentation and the possibility of epidural abscess, the Hospitalists were asked to evaluate the patient for admission. While in the hospital, the patient underwent abdomen and pelvis CT scan to evaluate for possible pyelonephritis demonstrating bilateral renal abscesses and left psoas muscle abscess. The patient was placed on vancomycin and cefepime. The patient was seen in consultation by Dr. Tristin Steve with Infectious Disease, who recommended long-term vancomycin IV. The patient also underwent a transthoracic echocardiogram to evaluate for endocarditis. This did not reveal any vegetation on his valves. It was felt that he had a low probability of endocarditis and a transesophageal echocardiogram was not pursued. The patient also had bacteremia on admission that was found to be MRSA bacteremia. The patient underwent repeat CT of the abdomen and pelvis on 07/10/16 showing multiple low-density lesions in both kidneys in addition to exophytic abscesses noted along the left psoas margins with enlargement of the left psoas muscle. The patient was eventually changed to linezolid IV with plans for IV antibiotics for 4 to 6 weeks. As of 07/15/16, the patient is on day 9 of 28 to 56 days. It is to also note that Interventional Radiology did not feel that the collections were large enough to drain and aspiration was not recommended at that time. Due to the patient's need for continued IV antibiotics and his inability to be discharged home due to his history IV drug use, the patient will be changed to swing bed status. This has been discussed with both the patient and his Mother, Carmelita Chopra. Mr. Chopra is stable for discharge to swing bed status today. Vital signs are as follows: Temperature 98.2, heart rate 63, respiratory rate 16, oxygen saturation 98%, blood pressure 117/60. Mr. Chopra is stable for discharge to swing bed status today. Activity as tolerated. He should be on a regular diet. As far as the patient's bilateral renal abscesses and left psoas muscle abscess, he will be continued on his linezolid 600 mg IV every 12 hours. As far as the patient's pain, he is being weaned from Dilaudid IV and transitioned to Percocet as needed in addition to routine ibuprofen. As far as the patient's constipation, he has been encouraged to take MiraLAX daily and use milk of magnesia as needed for constipation. I suspect as we decrease his narcotic use, his constipation will improve. We continued to follow the patient's CBC, CMP, and CRP per Infectious Disease's instruction. The patient will have a midline IV access placed. This is a summarized report of a complex medical history and hospital stay. For further details, please see the entire medical record. TIME SPENT: Time for this discharge was 50 minutes, and 25 minutes were spent face- to-face with the patient discussing discharge plans and instructions. CONDITION ON DISCHARGE: Stable. Reviewed by IVET PARISI 07/16/16 0600 CC: Priti West NP* [id number]/[facility] #: [id number] MARKUS
== END 2016-07-15 15:15 | disposition swing bed (61) | DRG 248 ==
LOC: ED 12:27 → MED 17:42
PROVIDERS: ADMIT Hospitalist; ATTEND Internal Medicine
DX: K68.12 Psoas muscle abscess (principal); N15.1 Renal and perinephric abscess; R78.81 Bacteremia; G89.29 Other chronic pain; J45.909 Unspecified asthma, uncomplicated; F41.9 Anxiety disorder, unspecified; F43.10 Post-traumatic stress disorder, unspecified; F20.9 Schizophrenia, unspecified; F31.9 Bipolar disorder, unspecified; F11.10 Opioid abuse, uncomplicated; F17.210 Nicotine dependence, cigarettes, uncomplicated; K59.00 Constipation, unspecified; B95.62 Methicillin resistant Staphylococcus aureus infection as the cause of diseases classified elsewhere; T80.89XA Other complications following infusion, transfusion and therapeutic injection, initial encounter; B18.2 Chronic viral hepatitis C; M41.9 Scoliosis, unspecified; I08.1 Rheumatic disorders of both mitral and tricuspid valves; Z91.5 Personal history of self-harm; Z56.0 Unemployment, unspecified; Z59.0 Homelessness
CPT/HCPCS: 36415; 71010; 72148; 72149; 74177; 80048; 80053; 80202; 81003; 81015; 82565; 84520; 85025; 85610; 86140; 86703; 87040; 87077; 87086; 87150; 87186; 87205; 93306; 99406; A9270-GY; A9579; J0692; J1170; J2020; J2060; J2405; J3370; Q9967

== ENCOUNTER 2016-07-15 15:15 | Inpatient (IN) | payer BC ==
[2016-07-15] MEDS ORDERED: Baclofen TAB* 10 MG PO PRN (15:49)
[2016-07-15] MEDS: Magnesium Hydroxide LIQ* 30 ML UDC PO PRN (16:22)
[2016-07-15] MEDS: Ibuprofen TAB* 600 MG PO SCH (18:15)
[2016-07-15] MEDS: Linezolid 600 MG IVPREMIX(*) 600 MG/300 ML BAG IVPB SCH (20:18)
--- NOTE | 2016-07-15 20:50 | HP ---
HISTORY AND PHYSICAL: DATE OF ADMISSION: 07/15/16 PRIMARY CARE PROVIDER: DONNA Mcdonald ATTENDING PHYSICIAN: Dr. Nasrin Hernandez *(dictated by Piper Hong NP). HISTORY OF PRESENT ILLNESS: Mr. Chopra is a 25-year-old male with past medical history significant for IV drug abuse, depression, anxiety, schizophrenia, and bipolar disorder, who presented to the emergency room initially with complaint of 5 weeks of back pain that had been becoming worse on July 06. At that time, the patient had just left an inpatient drug rehab program where he had been on a methadone taper with plans to be discharged from the inpatient treatment center to local inpatient drug treatment [facility]. Due to the patient' s pain, he presented to the emergency room for further evaluation of his symptoms. While in the [facility] [place] Room, the patient was found to have an elevated white blood cell count of 13.1 and CRP of 223.27. He underwent an MRI showing mild scoliosis, but no signs of osteomyelitis or diskitis. There was concern for an epidural abscess. The patient underwent a repeat MRI with contrast showing possible pyelonephritis. Based off these findings, the hospitalist had admitted the patient to the hospital. During the patient's hospital stay from July 06 to July 15, the patient initially underwent an abdomen and pelvis CT scan showing multiple renal abscesses and an abscess in his left psoas muscle. The patient was initiated on vancomycin and cefepime. When his urine culture returned without growth, the cefepime was discontinued. The patient was seen in consultation by Dr. Steve with Infectious Disease. The patient was found to have MRSA bacteremia on admission, with blood cultures growing 1/4 bottles positive for MRSA. He was continued on vancomycin and again the cefepime had been stopped. The patient had a repeat CT scan of his abdomen and pelvis, on July 10, which continued to show multiple renal abscesses and a left psoas muscle abscess. The patient also underwent a transthoracic echocardiogram on July 07 showing no signs of vegetation on his valves. A transesophageal echocardiogram was not pursued. There was a low suspicion for endocarditis. It is also to note that during the patient's stay, his initial leukocytosis has improved and his CRP is trending down. It was felt that the patient needed 28 to 56 days of IV antibiotics, and the patient was subsequently discharged to swing bed status as he was unable to be on outpatient IV antibiotics due to his IV drug abuse history. The patient denies fever, chills, chest pain, shortness of breath, nausea, vomiting, and diarrhea. The patient reports constipation and left flank pain. PAST MEDICAL HISTORY: 1. IV drug abuse. 2. Schizophrenia. 3. Bipolar. 4. Anxiety. 5. Depression. 6. Hepatitis C. MEDICATIONS: Home medications include none. Hospital medications include: 1. Acetaminophen 650 mg oral every 6 hours as needed for pain. 2. Baclofen 10 mg oral 3 times daily as needed for muscle spasms. 3. Dilaudid 2 mg IV every 6 hours as needed for pain. 4. Motrin 600 mg oral every 6 hours as needed for pain. 5. Milk of magnesia 30 mL oral every 6 hours as needed for constipation. 6. MiraLAX 17 g oral daily. 7. Linezolid 600 mg IV every 12 hours. 8. Percocet 1 tablet oral every 4 hours as needed for [id number] pain. 9. Percocet 2 tablets oral every 4 hours as needed for ulharxvt-[id number] pain. ALLERGIES: No known drug allergies. FAMILY HISTORY: The patient denies any family history of coronary artery disease, diabetes mellitus, or cancer. SOCIAL HISTORY: The patient reports smoking a pack and a half of cigarettes daily for the last 8 years. He occasionally drinks alcoholic beverages. Prior to the patient's inpatient treatment in June, he was using IV heroin daily. He is unemployed and currently homeless. The patient's mother, Carmelita Chopra, will be his surrogate decision maker in the event he is unable to make decisions for himself. REVIEW OF SYSTEMS: I performed a 14-point review of systems. All the pertinent positives and negatives are mentioned in the history of present illness. The remaining review of systems is negative. PHYSICAL EXAMINATION GENERAL APPEARANCE: The patient is alert, pleasant, appears to be in no acute distress. VITAL SIGNS: Temperature 98.2, heart rate 63, respiratory rate 16, O2 sat 98% on room air, blood pressure 117/60. HEENT: Normocephalic, atraumatic. Pupils are equal and reactive to light. Extraocular movements are intact. RESPIRATORY: There is no accessory muscle use and lungs are clear to auscultation bilateral. CARDIOVASCULAR: Regular rate and rhythm. S1 and S2 present. There are no murmurs, rubs, or gallops. ABDOMEN: Soft, nontender, nondistended. EXTREMITIES: There is no lower extremity edema. DP and PT pulses are 2+ and symmetric. MUSCULOSKELETAL: There is no clubbing or cyanosis noted. The patient has good co founder and ceo strength in all extremities. NEUROLOGICAL: The patient is alert and oriented x4. Cranial nerves II through XII are grossly intact. PSYCHOLOGICAL: The patient is calm and cooperative. SKIN: There are no rashes or abnormalities seen. LABORATORY DATA: Labs from 07/13/16, sodium 135, potassium 4.0, chloride 100, CO2 25, BUN 6, creatinine 0.96, glucose 147. CRP 151.83. White blood cell count 10.9, hemoglobin 11.0, hematocrit 33, and platelet count 441. IMPRESSION: Mr. Chopra is a 25-year-old male with past medical history significant for IV drug abuse, anxiety, depression, schizophrenia, and bipolar disorder, who presented to the hospital on July 06 with complaints of 5 weeks of back pain, was found to have bilateral renal abscesses and a left psoas muscle abscess with methicillin-resistant Staphylococcus aureus bacteremia. He will be admitted as a swing bed for continued IV antibiotics. ASSESSMENT AND PLAN: 1. Bilateral renal abscesses with left psoas muscle abscess. For pain, the patient will be continued on Percocet as needed for pain in addition to, we will work on weaning him off his Dilaudid IV. The patient will receive ibuprofen q.6 hours routinely. At this time, we will continue the patient's linezolid. He is on day 9 of 28 to 56. He will be continued to be followed by Infectious Disease. At this time, the patient is steadily improving and Interventional Radiology does not feel that the collections are large enough to drain and aspiration is not recommended at this time. 2. Constipation. The patient has been placed on bowel regimen of MiraLAX daily with milk of magnesia as needed. We will also work on weaning him from his narcotic as I suspect this is contributing to his constipation. 3. IV drug abuse. The patient had social work consult and they are in contacts with [facility] with plan for the patient to be discharge there after he completes his course of IV antibiotics. 4. Fluids, electrolytes, and nutrition. The patient will be on a regular diet. 5. Code status. Full code. 6. DVT prophylaxis. The patient is at low risk and will be encouraged to ambulate. If he does not continue to ambulate, he will be placed on SCDs. TIME SPENT: Time for this admission was 60 minutes and 35 minutes was spent face- to-face with the patient and mother discussing medications and the plans of his transition to swing bed status. The case has been reviewed with the attending, Dr. Hernandez, who agrees with the plan of care. Reviewed by IVET PARISI 07/16/162009 CC: DONNA Mcdonald* [id number]/[facility] #: [id number] MARKUS
[2016-07-15] MEDS: HYDROmorphone* 2 MG/ML 1 ML SYR IV SLOW PU PRN (21:26)
[2016-07-16] MEDS: Ibuprofen TAB* 600 MG PO SCH ×5 (00:18→23:28)
[2016-07-16] MEDS: HYDROmorphone* 2 MG/ML 1 ML SYR IV SLOW PU PRN ×4 (03:51→23:33)
[2016-07-16 05:55] LABS: Hematocrit 35 % (42-52); Hemoglobin 11.6 g/dl (14.0-18.0); Mean Corpuscular HGB Conc 33 g/dl (31-36); Mean Corpuscular Hemoglobin 28 pg (27-31); Mean Corpuscular Volume 87 fL (80-94); Mean Platelet Volume 7 um3 (7.4-10.4); Red Blood Count 4.08 10^6/ul (4.0-5.4); Red Cell Distribution Width 14 % (10.5-15); White Blood Count 7.9 10^3/ul (3.5-10.8)
[2016-07-16 06:10] LABS: Albumin 3.3 g/dL (3.2-5.2); BUN/Creatinine Ratio 13.2 (8-20); Calcium 9.8 mg/dL (8.6-10.3); EGFR African American 132.8 (>60); EGFR Non-African American 103.2 (>60); Globulin 5.1 g/dL (2-4); Potassium 3.9 mmol/L (3.5-5.0); Total Bilirubin 0.2 mg/dL (0.2-1.0); Total Protein 8.4 g/dL (6.4-8.9)
[2016-07-16] MEDS: Linezolid 600 MG IVPREMIX(*) 600 MG/300 ML BAG IVPB SCH ×2 (08:23→19:19)
[2016-07-16] MEDS: Polyethylene Glycol 3350* 17 GM PACKET PO SCH (08:28)
--- NOTE | 2016-07-16 10:21 | PN ---
Progress Note - Progress Note SOAP: Subjective: DOS: 07/16/16 CC: renal abscess HPI: 25 yo man with MRSA bacteremia and BL renal abscess, left psoas abscess, treated with antibiotics and no drainage. CT showed stable collections, CRP, fever, and pain all improving. No fever, rash, or diarrhea. Appetite good. Objective: [] Vital Signs Temp 36.4 C 07/16/16 06:59 Pulse 42 07/16/16 06:59 Resp 16 07/16/16 06:59 BP 98/44 07/16/16 06:59 Pulse Ox 100 07/16/16 06:59 Intake & Output 07/15/16 07/16/16 07/16/16 18:59 06:59 18:59 Intake Total 440 770 Balance 440 770 Weight 152 lb Intake: IV Fluids 20 NS (0.9%) 20 IVPB 310 ABX - LINEZOLID 310 Oral 440 440 Other: # Bowel Movements 0 # Voids 5 Gen:awake, no distress Neuro:Ox3, moves all extremities HEENT:PERRL, MMM Neck:supple Heart:RRR no murmur Lungs:CTA BL Abd:+BS NTND soft Skin: no rash MSK: no spine tenderness to palpation Laboratory Results - last 24 hr 07/16/16 07/16/16 05:11 05:11 WBC 7.9 RBC 4.08 Hgb 11.6 L Hct 35 L MCV 87 MCH 28 MCHC 33 RDW 14 Plt Count 427 MPV 7 L Neut % (Auto) 41.6 Lymph % (Auto) 40.0 Cooper % (Auto) 14.0 H Eos % (Auto) 3.8 Baso % (Auto) 0.6 Absolute Neuts (auto) 3.3 Absolute Lymphs (auto) 3.2 Absolute Monos (auto) 1.1 H Absolute Eos (auto) 0.3 Absolute Basos (auto) 0.1 Absolute Nucleated RBC 0 Nucleated RBC % 0 Sodium 137 Potassium 3.9 Chloride 100 L Carbon Dioxide 28 Anion Gap 9 BUN 12 Creatinine 0.91 Est GFR ( Amer) 132.8 Est GFR (Non-Af Amer) 103.2 BUN/Creatinine Ratio 13.2 Glucose 94 Calcium 9.8 Total Bilirubin 0.20 AST 23 ALT 34 Alkaline Phosphatase 89 C-Reactive Protein 56.00 H Total Protein 8.4 Albumin 3.3 Globulin 5.1 H Albumin/Globulin Ratio 0.6 L Assessment: 1. MRSA renal abscess bilateral 2. MRSA left renal abscess 3. IVDU in brief remission 4. elevated CRP, improving 5. Hepatitis C 6. bipolar disorder Plan: 1. continue linezolid 600 mg IV Q12hrs day 01/09-, weekly CBC, CMP, CRP. 25 minutes face to face time>50% in counseling with patient and parents regarding antibiotic plans, review of lab data, progress of treatment of infection and side effect monitoring. All questions answered.
[2016-07-16] MEDS: oxyCODONE/Acetamin 5/325 MG* TAB PO PRN (15:39)
[2016-07-17] MEDS: Ibuprofen TAB* 600 MG PO SCH ×4 (05:49→23:23)
[2016-07-17] MEDS: HYDROmorphone* 2 MG/ML 1 ML SYR IV SLOW PU PRN ×3 (09:06→23:27)
[2016-07-17] MEDS: Linezolid 600 MG IVPREMIX(*) 600 MG/300 ML BAG IVPB SCH ×2 (09:15→19:19)
[2016-07-17] MEDS: Polyethylene Glycol 3350* 17 GM PACKET PO SCH (10:35)
[2016-07-17] MEDS: oxyCODONE/Acetamin 5/325 MG* TAB PO PRN (21:57)
[2016-07-18] MEDS: Ibuprofen TAB* 600 MG PO SCH ×4 (06:15→23:22)
[2016-07-18] MEDS: Polyethylene Glycol 3350* 17 GM PACKET PO SCH (09:09)
[2016-07-18] MEDS: Linezolid 600 MG IVPREMIX(*) 600 MG/300 ML BAG IVPB SCH ×2 (09:11→19:52)
[2016-07-18] MEDS: HYDROmorphone* 2 MG/ML 1 ML SYR IV SLOW PU PRN ×2 (09:16→19:53)
[2016-07-18] MEDS: oxyCODONE/Acetamin 5/325 MG* TAB PO PRN ×2 (13:16→17:21)
[2016-07-18] MEDS: Magnesium Hydroxide LIQ* 30 ML UDC PO PRN (13:17)
[2016-07-19] MEDS: Ibuprofen TAB* 600 MG PO SCH ×3 (06:25→18:08)
[2016-07-19] MEDS: HYDROmorphone* 2 MG/ML 1 ML SYR IV SLOW PU PRN ×3 (06:30→20:17)
[2016-07-19] MEDS: Linezolid 600 MG IVPREMIX(*) 600 MG/300 ML BAG IVPB SCH ×2 (08:06→20:22)
[2016-07-19] MEDS: Polyethylene Glycol 3350* 17 GM PACKET PO SCH (09:24)
[2016-07-19] MEDS: oxyCODONE/Acetamin 5/325 MG* TAB PO PRN (11:57)
[2016-07-20] MEDS: Ibuprofen TAB* 600 MG PO SCH ×4 (00:04→18:07)
[2016-07-20] MEDS: HYDROmorphone* 2 MG/ML 1 ML SYR IV SLOW PU PRN ×2 (04:55→11:53)
[2016-07-20] MEDS: Linezolid 600 MG IVPREMIX(*) 600 MG/300 ML BAG IVPB SCH ×2 (08:36→19:48)
[2016-07-20] MEDS: Polyethylene Glycol 3350* 17 GM PACKET PO SCH (08:58)
[2016-07-20] MEDS: oxyCODONE/Acetamin 5/325 MG* TAB PO PRN (09:05)
[2016-07-20] MEDS ORDERED: Benzocaine (DENTAL) 7.5%* 10 GM TOP.GEL TOPICAL PRN (15:54)
[2016-07-20] MEDS: HYDROmorphone* 1 MG/ML 1 ML SYR IV SLOW PU PRN (18:10)
[2016-07-21] MEDS: Ibuprofen TAB* 600 MG PO SCH ×5 (00:43→23:42)
[2016-07-21] MEDS: HYDROmorphone* 1 MG/ML 1 ML SYR IV SLOW PU PRN ×4 (00:44→21:43)
[2016-07-21] MEDS: Linezolid 600 MG IVPREMIX(*) 600 MG/300 ML BAG IVPB SCH ×2 (07:27→19:34)
[2016-07-21] MEDS: Polyethylene Glycol 3350* 17 GM PACKET PO SCH (09:14)
[2016-07-21] MEDS ORDERED: Nicotine PATCH 14 MG/24 HR* PATCH ONE (14:33)
[2016-07-21] MEDS: Nicotine PATCH 14 MG/24 HR* PATCH TRANSDERM SCH ×2 (14:37→16:22)
--- NOTE | 2016-07-21 16:17 | PN ---
Subjective Date of Service: 07/21/16 Interval History: Saw patient this afternoon, he had spoken with SW about leaving AMA. He feels very confined. Not complaining of any pain at the moment. Explained the importance of continued IV ABx therapy and the risk of worsening infection if he were to leave. Agreeable to stay for now. Family History: Unchanged from Admission Social History: Unchanged from Admission Past Medical History: Unchanged from Admission Objective Active Medications: Acetaminophen (Tylenol Tab*) 650 mg PO Q4H PRN Baclofen (Lioresal Tab*) 10 mg PO TID PRN Benzocaine (Baby Orajel 7.5%*) 1 applic TOPICAL TID PRN Heparin Sodium (Porcine) (Heparin Flush Picc/Ml/Cvc(*)) 1 - 3 ml FLUSH 0600, 1800 [facility] Hydromorphone HCl (Dilaudid Iv*) 1 mg IV SLOW PU Q6H PRN Linezolid (Zyvox 600 Mg Ivpremix(*)) 600 mg in 300 mls @ 300 mls/hr IVPB Q12H [facility] Ibuprofen (Motrin Tab*) 600 mg PO Q6H [facility] Magnesium Hydroxide (Milk Of Magnesia Liq*) 30 ml PO Q6H PRN Nicotine (Nicotine Patch 14 Mg/24 Hr*) 1 patch TRANSDERM Q24H [facility] Oxycodone/Acetaminophen (Percocet 5/325 Tab*) 1 tab PO Q4H PRN Pharmacy Profile Note (Nicotine Patch Removal Note*) 1 note PATCH OFF 2100 [facility] Polyethylene Glycol/Electrolytes (Miralax*) 17 gm PO DAILY [facility] Vital Signs 07/20/16 07/20/16 07/20/16 18:10 19:10 19:50 Temperature Pulse Rate Respiratory 16 16 16 Rate Blood Pressure (mmHg) O2 Sat by Pulse Oximetry 07/21/16 07/21/16 07/21/16 00:44 01:44 07:26 Temperature Pulse Rate Respiratory 6 16 16 Rate Blood Pressure (mmHg) O2 Sat by Pulse Oximetry 07/21/16 07/21/16 07/21/16 08:00 08:03 08:26 Temperature 97.6 F Pulse Rate 46 Respiratory 16 16 18 Rate Blood Pressure 111/51 (mmHg) O2 Sat by Pulse 100 Oximetry 07/21/16 07/21/16 14:37 15:37 Temperature Pulse Rate Respiratory 18 18 Rate Blood Pressure (mmHg) O2 Sat by Pulse Oximetry Oxygen Devices in Use Now: None Appearance: Youg, AAM, sitting in chair in NAD Eyes: No Scleral Icterus Ears/Nose/Mouth/Throat: Mucous Membranes Moist Neck: NL Appearance and Movements; NL JVP Respiratory: Symmetrical Chest Expansion and Respiratory Effort, Clear to Auscultation Cardiovascular: NL Sounds; No Murmurs; No JVD, RRR Abdominal: NL Sounds; No Tenderness; No Distention Lymphatic: No Cervical Adenopathy Neurological: Alert and Oriented x 3 Result Diagrams: 07/16/16 05:11 07/16/16 05:11 Assess/Plan/Problems-Billing Assessment: MRSA bacteremia and renal/psoas abscesses in a 25 yo M with hx of IVDA, bipolar disorder, schizophrenia, anxiety - Patient Problems (1) Bacteremia due to methicillin resistant Staphylococcus aureus Current Visit: No Comment: Renal/psoas abscesses. Continue IV Linezolid, Day 15 of 28-56 (pending ID). Dilaudid decreased recently, will continue to work on weaning. (2) Drug abuse Current Visit: No Comment: Discharge to [facility] after course of ABX, if bed is available (3) DVT prophylaxis Current Visit: No Comment: Encourage ambulation
[2016-07-21] MEDS: Nicotine Patch Removal NOTE PATCH OFF SCH (21:47)
[2016-07-22] MEDS: Ibuprofen TAB* 600 MG PO SCH ×3 (05:46→19:18)
[2016-07-22] MEDS: HYDROmorphone* 1 MG/ML 1 ML SYR IV SLOW PU PRN ×3 (07:55→20:32)
[2016-07-22] MEDS: Linezolid 600 MG IVPREMIX(*) 600 MG/300 ML BAG IVPB SCH ×2 (07:57→20:37)
[2016-07-22] MEDS: Polyethylene Glycol 3350* 17 GM PACKET PO SCH (08:12)
[2016-07-22] MEDS: Nicotine PATCH 14 MG/24 HR* PATCH TRANSDERM SCH (14:12)
[2016-07-22] MEDS: Nicotine Patch Removal NOTE PATCH OFF SCH (22:09)
[2016-07-23] MEDS: Ibuprofen TAB* 600 MG PO SCH ×5 (00:05→23:58)
[2016-07-23] MEDS: CMCS: Melatonin (NF) 3 MG TAB PO PRN (00:05)
[2016-07-23] MEDS: HYDROmorphone* 1 MG/ML 1 ML SYR IV SLOW PU PRN ×4 (03:01→22:55)
[2016-07-23] MEDS: Linezolid 600 MG IVPREMIX(*) 600 MG/300 ML BAG IVPB SCH ×2 (08:24→19:33)
[2016-07-23] MEDS: Polyethylene Glycol 3350* 17 GM PACKET PO SCH (08:27)
--- NOTE | 2016-07-23 11:01 | PN ---
Progress Note - Progress Note SOAP: Subjective: DOS: 07/23/16 CC: renal abscess HPI: 25 yo man with MRSA bacteremia and BL renal abscess, left psoas abscess, treated with antibiotics and no drainage. Follow up CT showed stable collections. Denies back or abd pain, no pain with movement or weight bearing. Has sweats at night sometimes, no fever. No rash or diarrhea. Concerned that he is dependent on dilaudid now which he needed for pain control. Objective: [] Vital Signs Temp 36.4 C 07/23/16 07:37 Pulse 49 07/23/16 07:37 Resp 16 07/23/16 08:00 BP 112/58 07/23/16 07:37 Pulse Ox 100 07/23/16 07:37 Intake & Output 07/22/16 07/23/16 07/23/16 18:59 06:59 18:59 Intake Total 564 760 0 Balance 564 760 0 Intake: IV Fluids 334 320 ABX - LINEZOLID 314 300 NS (0.9%) 20 20 Oral 230 440 0 Other: # Bowel Movements 0 # Voids 2 Gen:awake, no distress Neuro:Ox3, moves all extremities HEENT:PERRL, MMM Neck:supple Heart:RRR no murmur Lungs:CTA BL Abd:+BS NTND soft Skin: no rash MSK: no spine tenderness to palpation Assessment: 1. MRSA renal abscess bilateral 2. MRSA left psoas abscess 3. IVDU in brief remission 4. elevated CRP, improving 5. Hepatitis C 6. bipolar disorder Plan: 1. continue linezolid 600 mg IV Q12hrs day , recheck labs now (ordered), if CRP improving, recheck CT end of next week and if significant improvement can finish treatment with oral antibiotics at 28 days. 2. Will ask Dr aJckson to see him regarding transition of opioid medications Discussed with Dr Fabian 35 minutes face to face time>50% in counseling with patient and parents regarding antibiotic treatment, future lab tests and imaging time, consultation with pain management service. All questions answered.
[2016-07-23] MEDS: oxyCODONE/Acetamin 5/325 MG* TAB PO PRN (14:19)
[2016-07-23] MEDS: Nicotine PATCH 14 MG/24 HR* PATCH TRANSDERM SCH (14:20)
[2016-07-23] MEDS: Nicotine Patch Removal NOTE PATCH OFF SCH (22:49)
[2016-07-24] MEDS: Ibuprofen TAB* 600 MG PO SCH ×3 (07:14→20:33)
[2016-07-24] MEDS: Linezolid 600 MG IVPREMIX(*) 600 MG/300 ML BAG IVPB SCH ×2 (08:07→21:25)
[2016-07-24] MEDS: HYDROmorphone* 1 MG/ML 1 ML SYR IV SLOW PU PRN ×3 (08:16→21:25)
[2016-07-24] MEDS: Polyethylene Glycol 3350* 17 GM PACKET PO SCH (08:23)
--- NOTE | 2016-07-24 13:36 | CONS ---
PSYCHIATRY CONSULTATION DATE OF CONSULT: 07/24/2016. DATE OF ADMISSION: 07/15/2016. ATTENDING PHYSICIAN: Dr. Hernán Fabian. CONSULTING CLINICIAN: Dr. Angel Chatterjee. REASON FOR CONSULT: Patient is being transferred to a substance abuse treatment facility and they h ave concerns regarding his putative history of mental illness. PSYCHIATRIC HISTORY: Psychiatry is called to consult on this 25-year-old, single, -Lebanese male with a history of chronic polysubstance abuse who was admitted on July 15 with apparent bactere dodie in the setting of chronic IV substance abuse. The reason for the consultation is that he is set to be transferred to the [facility] and they have requested psychiatric consultation due to his history of mental illness. I should note that the patient is well-known to me from two separate admissions on our unit. The first in February of 2016 and the last in June 01, both of which were in the context of heavy IV drug use. The patient's discharge diagnosis from this most recent discharge summary, dictated by me on 05/19/2016, was opioid-induced mood disorder. He has no formal psychiatric history. The patient has been homeless in the community as he frequent ly steals from his adoptive parents and they will not allow him to stay with them. He typically use s not only opioids, but also bath salts, amphetamine pills, cocaine, cannabis, and "anything I can g et my hands on." The patient does have a tendency to become suicidal when he is actively using and these were the reasons for his psychiatric admissions in February of 2016 and May of 2016. Curren tly, he is calm and cooperative. He denies suicidal ideations. He admits that he needs help with h is drug abuse problem and he is willing to go to the [email or web address] program. PAST MEDICAL HISTORY: Significant for acute bacteremia secondary to IV drug abuse. PAST PSYCHIATRIC HISTORY: The patient has had hospitalizations here in May of 2016, February, also hospitalizations in 2014, 2013, 2012, and two admissions in 2008. Past diagnoses include substance abuse mood disorder and substance abuse psychotic disorder. Past medication trials have i ncluded Abilify, Risperdal, Concerta, Strattera and Wellbutrin; however, he is not currently on any psychiatric medications. The patient's suicidality essentially is chronic when he is actively abusi ng drugs. According to our records, most of his suicidality has been fairly malingered. FAMILY PSYCHIATRIC HISTORY: The biological mother has had a history of substance abuse problems her self. SOCIAL HISTORY: The patient is currently homeless. He has had multiple incarcerations and was rece ntly in intermediate. He was adopted and raised by a family in [place], [place]. Previously reported having ten siblings. He was educated with an IEP in Special Education to about the 10th or 11th grade, bu t he has not received a diploma or GED. He does have a 4-year-old son who lives with his maternal g randparents. The patient has been minimally in contact with this child. In the past, he has worked with [employer]. Most recently he has been homeless and has at times lived in an [facility] ed in his parent's driveway. SUBSTANCE ABUSE HISTORY: The patient typically does cannabis, alcohol, bath salts, synthetic mariju alexey, cocaine, and heroin. He does prefer IV drugs. He has had multiple outpatient and inpatient re hab stints, including in [place] [facility] [place] of [place]. MENTAL STATUS EXAM: The patient is a healthy-appearing, dark skinned, mid 20s, -Lebanese mal e with apparently normal hygiene. He is dressed in a patient gown, lying down in the supine positio n. He has normal psychomotor activity. Eye contact is poor and he is minimally cooperative. Speec h is terse and not spontaneous. Mood is euthymic. Affect is full. Thought process is linear and g oal directed. Thought content is significant for his desire to go to substance abuse rehab. He den ies suicidal or homicidal ideations. Insight and judgment is fair given his willingness to follow-u p with inpatient drug rehab. Cognitively, he is awake and alert with what would appear to be an ave rage intellect. DIAGNOSES: AXIS I: Opioid use disorder. AXIS II: Rule out antisocial personality traits. ASSESSMENT: The patient is a 25-year-old, single -Lebanese male with a history of chronic po lysubstance abuse who is hospitalized on the medical service due to bacteremia in the setting of IV drug abuse. The plan is once he is medically stable, he is to be transferred to the [facility] inpatient substance abuse program which I think would be a good fit for him. The patient is agreeable with is. PLAN: The patient is psychiatrically cleared for a transfer to rehab. He does not require mental h ealth medications as he is asymptomatic when he is sober. Thank you for the interesting consult and Psychiatry will be signing off, unless further assistance is needed. [id number]/[facility] #: [id number]
[2016-07-24] MEDS: Nicotine PATCH 14 MG/24 HR* PATCH TRANSDERM SCH (14:22)
[2016-07-24] MEDS: oxyCODONE/Acetamin 5/325 MG* TAB PO PRN (18:04)
[2016-07-24] MEDS: CMCS: Melatonin (NF) 3 MG TAB PO PRN (21:25)
[2016-07-25] MEDS: Nicotine Patch Removal NOTE PATCH OFF SCH ×2 (05:30→20:00)
[2016-07-25] MEDS: HYDROmorphone* 1 MG/ML 1 ML SYR IV SLOW PU PRN ×3 (05:46→18:16)
[2016-07-25] MEDS: Ibuprofen TAB* 600 MG PO SCH ×4 (06:25→17:14)
[2016-07-25] MEDS: Polyethylene Glycol 3350* 17 GM PACKET PO SCH (07:21)
[2016-07-25] MEDS: Linezolid 600 MG IVPREMIX(*) 600 MG/300 ML BAG IVPB SCH ×2 (07:34→19:55)
[2016-07-25] MEDS: Nicotine PATCH 14 MG/24 HR* PATCH TRANSDERM SCH (15:22)
[2016-07-25] MEDS: oxyCODONE/Acetamin 5/325 MG* TAB PO PRN (23:09)
[2016-07-26] MEDS: HYDROmorphone* 1 MG/ML 1 ML SYR IV SLOW PU PRN ×2 (01:10→07:39)
[2016-07-26] MEDS: Ibuprofen TAB* 600 MG PO SCH ×3 (04:08→11:03)
[2016-07-26] MEDS: Polyethylene Glycol 3350* 17 GM PACKET PO SCH (07:43)
[2016-07-26] MEDS: Linezolid 600 MG IVPREMIX(*) 600 MG/300 ML BAG IVPB SCH ×2 (07:43→19:37)
[2016-07-26] MEDS: cloNIDine TAB* 0.1 MG PO PRN ×2 (13:54→19:37)
[2016-07-26] MEDS: Nicotine PATCH 14 MG/24 HR* PATCH TRANSDERM SCH (13:54)
[2016-07-26] MEDS: HYDROmorphone TAB* 4 MG PO PRN ×2 (13:54→21:16)
[2016-07-26] MEDS: Nicotine Patch Removal NOTE PATCH OFF SCH (21:22)
[2016-07-27] MEDS: Acetaminophen TAB* 325 MG PO PRN (00:39)
[2016-07-27] MEDS: HYDROmorphone TAB* 4 MG PO PRN ×4 (05:12→23:30)
[2016-07-27] MEDS: Polyethylene Glycol 3350* 17 GM PACKET PO SCH (07:10)
[2016-07-27] MEDS: Linezolid 600 MG IVPREMIX(*) 600 MG/300 ML BAG IVPB SCH ×2 (07:56→20:02)
[2016-07-27] MEDS: Nicotine PATCH 14 MG/24 HR* PATCH TRANSDERM SCH (15:07)
[2016-07-27] MEDS: cloNIDine TAB* 0.1 MG PO PRN (20:02)
[2016-07-27] MEDS: Nicotine Patch Removal NOTE PATCH OFF SCH (21:06)
[2016-07-28 05:15] LABS: Albumin 3.7 g/dL (3.2-5.2); BUN/Creatinine Ratio 12.4 (8-20); C Reactive Protein 15.45 mg/L (< 5.00); Calcium 9.5 mg/dL (8.6-10.3); EGFR African American 103.4 (>60); EGFR Non-African American 80.4 (>60); Globulin 4.3 g/dL (2-4); Potassium 3.8 mmol/L (3.5-5.0); Total Bilirubin 0.5 mg/dL (0.2-1.0)
[2016-07-28 05:25] LABS: Hematocrit 35 % (42-52); Hemoglobin 11.7 g/dl (14.0-18.0); Mean Corpuscular HGB Conc 33 g/dl (31-36); Mean Corpuscular Hemoglobin 29 pg (27-31); Mean Corpuscular Volume 88 fL (80-94); Mean Platelet Volume 7 um3 (7.4-10.4); Red Blood Count 3.98 10^6/ul (4.0-5.4); Red Cell Distribution Width 15 % (10.5-15); White Blood Count 4.6 10^3/ul (3.5-10.8)
[2016-07-28] MEDS: HYDROmorphone TAB* 4 MG PO PRN ×3 (06:01→19:41)
[2016-07-28] MEDS: Polyethylene Glycol 3350* 17 GM PACKET PO SCH (08:05)
[2016-07-28] MEDS: Linezolid 600 MG IVPREMIX(*) 600 MG/300 ML BAG IVPB SCH ×2 (08:05→19:40)
[2016-07-28] MEDS: Nicotine PATCH 14 MG/24 HR* PATCH TRANSDERM SCH ×2 (08:55→15:49)
--- NOTE | 2016-07-28 14:31 | PN ---
Subjective Date of Service: 07/28/16 Interval History: C/O pain L hip/flank area. Appetite OK. No bowel c/o. Family History: Unchanged from Admission Social History: Unchanged from Admission Past Medical History: Unchanged from Admission Objective Active Medications: Acetaminophen (Tylenol Tab*) 650 mg PO Q4H PRN PRN Reason: FEVER/PAIN Last Admin: 07/27/16 00:39 Dose: 650 mg Baclofen (Lioresal Tab*) 10 mg PO TID PRN PRN Reason: SPASMS - MUSCLE Benzocaine (Baby Orajel 7.5%*) 1 applic TOPICAL TID PRN PRN Reason: Mouth pain Last Admin: 07/20/16 18:08 Dose: 1 applic Clonidine HCl (Catapres Tab*) 0.1 mg PO TID PRN PRN Reason: WITHDRAWAL - OPIATE Last Admin: 07/27/16 20:02 Dose: 0.1 mg Heparin Sodium (Porcine) (Heparin Flush Picc/Ml/Cvc(*)) 1 - 3 ml FLUSH 0600, 1800 [facility] PRN Reason: Protocol Last Admin: 07/28/16 06:01 Dose: 1 ml Hydromorphone HCl (Dilaudid Tab*) 4 mg PO Q6H PRN PRN Reason: PAIN Last Admin: 07/28/16 12:28 Dose: 4 mg Linezolid (Zyvox 600 Mg Ivpremix(*)) 600 mg in 300 mls @ 300 mls/hr IVPB Q12H [facility] Last Admin: 07/28/16 08:05 Dose: 300 mls/hr Magnesium Hydroxide (Milk Of Magnesia Liq*) 30 ml PO Q6H PRN PRN Reason: CONSTIPATION Last Admin: 07/18/16 13:17 Dose: 30 ml Melatonin (Melatonin (Nf)) 3 mg PO BEDTIME PRN PRN Reason: INSOMNIA Last Admin: 07/24/16 21:25 Dose: 3 mg Nicotine (Nicotine Patch 14 Mg/24 Hr*) 1 patch TRANSDERM Q24H [facility] Last Admin: 07/28/16 08:55 Dose: 1 patch Pharmacy Profile Note (Nicotine Patch Removal Note*) 1 note PATCH OFF 2100 [facility] Last Admin: 07/27/16 21:06 Dose: Not Given Polyethylene Glycol/Electrolytes (Miralax*) 17 gm PO DAILY [facility] Last Admin: 07/28/16 08:05 Dose: Not Given Vital Signs 07/27/16 07/27/16 07/27/16 17:28 19:28 20:00 Pulse Rate Respiratory 16 16 16 Rate Blood Pressure (mmHg) O2 Sat by Pulse Oximetry 07/27/16 07/28/16 07/28/16 23:30 01:30 06:01 Pulse Rate Respiratory 16 16 16 Rate Blood Pressure (mmHg) O2 Sat by Pulse Oximetry 07/28/16 07/28/16 07/28/16 07:18 08:00 08:01 Pulse Rate 53 Respiratory 16 16 16 Rate Blood Pressure 111/52 (mmHg) O2 Sat by Pulse 100 Oximetry 07/28/16 12:28 Pulse Rate Respiratory 16 Rate Blood Pressure (mmHg) O2 Sat by Pulse Oximetry Oxygen Devices in Use Now: None Appearance: Lying in semi- posiition on his R side in bed. Neutral affect , angry at times. Eyes: No Scleral Icterus Respiratory: Symmetrical Chest Expansion and Respiratory Effort, Clear to Auscultation, Clear to Percussion Cardiovascular: NL Sounds; No Murmurs; No JVD, RRR, No Edema, - Skin: No Rash or Ulcers, No Nodules or Sclerosis, - Neurological: Alert and Oriented x 3, NL Sensation Result Diagrams: 07/28/16 04:45 07/28/16 04:45 Assess/Plan/Problems-Billing Assessment: MRSA bacteremia and renal/psoas abscesses in a 25 yo M with hx of IVDA, bipolar disorder, schizophrenia, anxiety - Patient Problems (1) Bacteremia due to methicillin resistant Staphylococcus aureus Current Visit: No Status: Acute Code(s): R78.81 - BACTEREMIA SNOMED Code(s ): 31839090593951101 Comment: Renal/psoas abscesses. Continue IV Linezolid. Day 28 would be 08/02. US both kidneys requested 07/28. If adequate response on US, would discharge with 2 weeks of oral linezolid. Note CRP down to 15.45 on 07/28/16. (2) Polysubstance dependence Current Visit: No Status: Acute Priority: High Onset Date: 10/07/14 Code (s): F19.20 - OTHER PSYCHOACTIVE SUBSTANCE DEPENDENCE, UNCOMPLICATED SNOMED Code(s): 79609950 Comment: heroin bath salts marijuana synthetic marijuana crack On oral hydromorphone 4 mg q 6 hr only as of 07/28/16. nicotine
--- NOTE | 2016-07-28 17:17 | RAD ---
Indication: Renal abscesses. Real-time sonography of the kidneys was performed. Right kidney measures 11.2 x 4.5 x 4.7 cm. Irregular shaped hypoechoic areas in both kidneys are noted without flow may represent sequela from prior abscesses. They certainly appear to BE smaller than on prior exam. For example the right kidney demonstrates a parenchymal hypodensity measuring approximately 10 mm. The left kidney measures 10.3 x 4.9 x 5.5 cm. Ovoid area of hypoechogenicity is noted in the left kidney measuring approximately 2.1 x 0.9 cm. This is in the expected location of the prior renal abscess and may be sequela or residual from prior abscess formation. IMPRESSION: No hydronephrosis in either kidney. Hypoechogenic areas in both kidneys likely represent sequela from prior renal abscesses.
[2016-07-28] MEDS: Nicotine Patch Removal NOTE PATCH OFF SCH (21:07)
[2016-07-29] MEDS: HYDROmorphone TAB* 4 MG PO PRN ×4 (01:47→20:54)
[2016-07-29] MEDS: Linezolid 600 MG IVPREMIX(*) 600 MG/300 ML BAG IVPB SCH ×2 (09:36→20:55)
[2016-07-29] MEDS: Polyethylene Glycol 3350* 17 GM PACKET PO SCH (09:38)
--- NOTE | 2016-07-29 10:37 | PN ---
Progress Note - Progress Note SOAP: Subjective: DOS: 07/29/16 CC: renal abscess HPI: 25 yo man with MRSA bacteremia and BL renal abscess, left psoas abscess, treated with antibiotics and no drainage. Follow up CT showed stable collections. No pain, fever, rash, or diarrhea. No problems with midline per RN or patient. Objective: [] Vital Signs Temp 36.7 C 07/29/16 07:57 Pulse 85 07/29/16 07:57 Resp 16 07/29/16 07:57 BP 149/77 07/29/16 07:57 Pulse Ox 100 07/29/16 07:57 Intake & Output 07/28/16 07/29/16 07/29/16 18:59 06:59 18:59 Intake Total 740 1180 Balance 740 1180 Intake: IV Fluids 300 ABX - LINEZOLID 300 IVPB 300 ABX - LINEZOLID 300 Oral 440 880 Other: Estimated Void Medium # Bowel Movements 0 # Voids 3 Gen:awake, no distress Neuro:Ox3, moves all extremities HEENT:PERRL, MMM Neck:supple Heart:RRR no murmur Lungs:CTA BL Abd:+BS NTND soft Skin: no rash MSK: no spine tenderness to palpation 07/28/16 07/28/16 04:45 04:45 WBC 4.6 RBC 3.98 L Hgb 11.7 L Hct 35 L MCV 88 MCH 29 MCHC 33 RDW 15 Plt Count 223 MPV 7 L Sodium 133 Potassium 3.8 Chloride 98 L Carbon Dioxide 28 Anion Gap 7 BUN 14 Creatinine 1.13 Est GFR ( Amer) 103.4 Est GFR (Non-Af Amer) 80.4 BUN/Creatinine Ratio 12.4 Glucose 108 H Calcium 9.5 Total Bilirubin 0.50 AST 15 ALT 20 Alkaline Phosphatase 72 C-Reactive Protein 15.45 H Total Protein 8.0 Albumin 3.7 Globulin 4.3 H Albumin/Globulin Ratio 0.9 L Renal US 07/28: hypoechoic areas in both kidneys, 1 cm in right, 2 cm on left Assessment: 1. MRSA renal abscess bilateral; CRP and symptoms continue to resolve 2. MRSA left psoas abscess 3. IVDU in brief remission 4. elevated CRP, improving 5. Hepatitis C 6. bipolar disorder Plan: 1. continue linezolid 600 mg IV Q12hrs day . Then linezolid 600 mg PO BID x14 days Discussed with Dr Sauer
[2016-07-29] MEDS: Nicotine PATCH 14 MG/24 HR* PATCH TRANSDERM SCH (16:43)
[2016-07-29] MEDS: Nicotine Patch Removal NOTE PATCH OFF SCH (20:55)
[2016-07-30] MEDS: HYDROmorphone TAB* 4 MG PO PRN ×4 (05:26→23:45)
[2016-07-30] MEDS: Polyethylene Glycol 3350* 17 GM PACKET PO SCH (07:42)
[2016-07-30] MEDS: Nicotine PATCH 14 MG/24 HR* PATCH TRANSDERM SCH (08:07)
[2016-07-30] MEDS: Linezolid 600 MG IVPREMIX(*) 600 MG/300 ML BAG IVPB SCH ×2 (08:08→20:09)
[2016-07-30] MEDS: Nicotine Patch Removal NOTE PATCH OFF SCH ×2 (20:09→22:00)
[2016-07-30] MEDS: cloNIDine TAB* 0.1 MG PO PRN (21:28)
[2016-07-31] MEDS: HYDROmorphone TAB* 4 MG PO PRN ×4 (05:49→23:58)
[2016-07-31] MEDS: Polyethylene Glycol 3350* 17 GM PACKET PO SCH (07:15)
[2016-07-31] MEDS: Linezolid 600 MG IVPREMIX(*) 600 MG/300 ML BAG IVPB SCH ×2 (08:05→19:43)
[2016-07-31] MEDS: Nicotine PATCH 14 MG/24 HR* PATCH TRANSDERM SCH (08:05)
[2016-07-31] MEDS: cloNIDine TAB* 0.1 MG PO PRN ×3 (09:16→20:48)
[2016-07-31] MEDS: Nicotine Patch Removal NOTE PATCH OFF SCH (19:51)
[2016-07-31] MEDS: Acetaminophen TAB* 325 MG PO PRN (20:48)
[2016-07-31] MEDS: Ibuprofen TAB* 400 MG PO PRN (23:57)
[2016-08-01] MEDS: HYDROmorphone TAB* 4 MG PO PRN ×3 (06:06→23:55)
[2016-08-01] MEDS: Linezolid 600 MG IVPREMIX(*) 600 MG/300 ML BAG IVPB SCH ×2 (08:11→20:13)
[2016-08-01] MEDS: Polyethylene Glycol 3350* 17 GM PACKET PO SCH (08:12)
[2016-08-01] MEDS: Nicotine PATCH 14 MG/24 HR* PATCH TRANSDERM SCH (12:03)
--- NOTE | 2016-08-01 14:41 | PN ---
Subjective Date of Service: 08/01/16 Interval History: - interviewed pt and examined him at bedside - reported h/o fever overnight - no localizing signs - patient thought it was "withdrawal" - though there would be no clear explanation given his med regimen. . Family History: Unchanged from Admission Social History: Unchanged from Admission Past Medical History: Unchanged from Admission Objective Active Medications: Acetaminophen (Tylenol Tab*) 650 mg PO Q4H PRN PRN Reason: FEVER/PAIN Last Admin: 07/31/16 20:48 Dose: 650 mg Baclofen (Lioresal Tab*) 10 mg PO TID PRN PRN Reason: SPASMS - MUSCLE Benzocaine (Baby Orajel 7.5%*) 1 applic TOPICAL TID PRN PRN Reason: Mouth pain Last Admin: 07/20/16 18:08 Dose: 1 applic Clonidine HCl (Catapres Tab*) 0.1 mg PO TID PRN PRN Reason: WITHDRAWAL - OPIATE Last Admin: 07/31/16 20:48 Dose: 0.1 mg Heparin Sodium (Porcine) (Heparin Flush Picc/Ml/Cvc(*)) 1 - 3 ml FLUSH 0600, 1800 [facility] PRN Reason: Protocol Last Admin: 08/01/16 06:07 Dose: 1 ml Hydromorphone HCl (Dilaudid Tab*) 4 mg PO Q6H PRN PRN Reason: PAIN Last Admin: 08/01/16 06:06 Dose: 4 mg Linezolid (Zyvox 600 Mg Ivpremix(*)) 600 mg in 300 mls @ 300 mls/hr IVPB Q12H [facility] Last Admin: 08/01/16 08:11 Dose: 300 mls/hr Ibuprofen (Motrin Tab*) 400 mg PO Q6H PRN PRN Reason: FEVER/HEADACHE Last Admin: 07/31/16 23:57 Dose: 400 mg Magnesium Hydroxide (Milk Of Magnesia Liq*) 30 ml PO Q6H PRN PRN Reason: CONSTIPATION Last Admin: 07/18/16 13:17 Dose: 30 ml Melatonin (Melatonin (Nf)) 3 mg PO BEDTIME PRN PRN Reason: INSOMNIA Last Admin: 07/24/16 21:25 Dose: 3 mg Nicotine (Nicotine Patch 14 Mg/24 Hr*) 1 patch TRANSDERM Q24HR [facility] Last Admin: 08/01/16 12:03 Dose: Not Given Pharmacy Profile Note (Nicotine Patch Removal Note*) 1 note PATCH OFF 2100 [facility] Last Admin: 07/31/16 19:51 Dose: 1 note Polyethylene Glycol/Electrolytes (Miralax*) 17 gm PO DAILY [facility] Last Admin: 08/01/16 08:12 Dose: Not Given Vital Signs 07/31/16 07/31/16 07/31/16 15:38 17:52 19:49 Temperature 97.9 F Pulse Rate 96 Respiratory 16 16 18 Rate Blood Pressure 105/47 (mmHg) O2 Sat by Pulse 99 Oximetry Oxygen Devices in Use Now: None Appearance: NAD - blanket over head in room. reticent to speak with me, though he ultimately did. Eyes: No Scleral Icterus Ears/Nose/Mouth/Throat: Clear Oropharnyx Neck: Trachea Midline Respiratory: Symmetrical Chest Expansion and Respiratory Effort Cardiovascular: NL Sounds; No Murmurs; No JVD Abdominal: NL Sounds; No Tenderness; No Distention Extremities: No Edema Skin: No Rash or Ulcers Neurological: Alert and Oriented x 3 Lines/Tubes/Other Access: Clean, Dry and Intact Peripheral IV Nutrition: Taking PO's Result Diagrams: 07/28/16 04:45 07/28/16 04:45 Assess/Plan/Problems-Billing . Assessment: MRSA bacteremia and renal/psoas abscesses in a 25 yo M with hx of IVDA, bipolar disorder, schizophrenia, anxiety. Current Medications: - Acetaminophen (Tylenol Tab) 650 mg PO Q4H PRN FEVER/PAIN - Baclofen (Lioresal Tab) 10 mg PO TID PRN SPASMS - MUSCLE - Benzocaine (Baby Orajel 7.5%) 1 applic TOPICAL TID PRN Mouth pain - Clonidine HCl (Catapres Tab) 0.1 mg PO TID PRN WITHDRAWAL - OPIATE - Hydromorphone HCl (Dilaudid Tab) 4 mg PO Q6H PRN PAIN - Linezolid (Zyvox 600 Mg Ivpremix) 600 mg IVPB Q12H - Ibuprofen (Motrin Tab) 400 mg PO Q6H PRN FEVER/HEADACHE - Magnesium Hydroxide (Milk Of Magnesia Liq) 30 ml PO Q6H PRN CONSTIPATION - Melatonin (Melatonin) 3 mg PO BEDTIME PRN INSOMNIA - Nicotine (Nicotine Patch 14 Mg/24 Hr) 1 patch TRANSDERM Q24HR - Polyethylene Glycol/Electrolytes (Miralax) 17 gm PO DAILY . - Patient Problems (1) Bacteremia due to methicillin resistant Staphylococcus aureus Current Visit: No Status: Acute Code(s): R78.81 - BACTEREMIA Comment: - Renal/psoas abscesses noted. - Continue IV Linezolid. - Day 28 is 08/02. - US both kidneys reviewed from 07/28/2016. - 2 weeks linezolid after dc on 08/03/2016. (2) Back pain Current Visit: No Status: Acute Code(s): M54.9 - DORSALGIA, UNSPECIFIED Comment: - With abdominal pain - Afebrile, leukocytosis - MRI / CT ABD/Pelvis - findings C/W pyelonephritis and bilateral renal abscesses, and multiple bilateral complex cystic renal masses with one extending posteriorly on the left side involving the left psoas muscle (3) Drug-induced mood disorder Current Visit: No Status: Chronic Priority: High Code(s): F19.94 - OTH PSYCHOACTIVE SUBSTANCE USE, UNSP W MOOD DISORDER (4) Polysubstance dependence Current Visit: No Status: Chronic Priority: High Code(s): F19.20 - OTHER PSYCHOACTIVE SUBSTANCE DEPENDENCE, UNCOMPLICATED Comment: heroin bath salts marijuana synthetic marijuana crack On oral hydromorphone 4 mg q 6 hr only as of 07/28/16. nicotine
[2016-08-01 17:22] LABS: Urine Bacteria Absent (Absent); Urine Bilirubin Negative (Negative); Urine Glucose Negative (Negative); Urine Nitrite Negative (Negative)
[2016-08-01] MEDS: Nicotine Patch Removal NOTE PATCH OFF SCH (21:27)
[2016-08-01] MEDS: cloNIDine TAB* 0.1 MG PO PRN (22:32)
[2016-08-01] MEDS: Ibuprofen TAB* 400 MG PO PRN (22:34)
[2016-08-02] MEDS: HYDROmorphone TAB* 4 MG PO PRN ×3 (05:48→18:26)
[2016-08-02] MEDS: Linezolid 600 MG IVPREMIX(*) 600 MG/300 ML BAG IVPB SCH ×2 (07:59→19:54)
[2016-08-02] MEDS: Polyethylene Glycol 3350* 17 GM PACKET PO SCH (08:06)
[2016-08-02] MEDS: Ibuprofen TAB* 400 MG PO PRN (09:14)
[2016-08-02] MEDS: cloNIDine TAB* 0.1 MG PO PRN (09:14)
[2016-08-02] MEDS: Nicotine PATCH 14 MG/24 HR* PATCH TRANSDERM SCH (09:50)
--- NOTE | 2016-08-02 17:10 | PN ---
Subjective Date of Service: 08/02/16 Interval History: . Called to discuss renewal of hydromorphone and possibility for decreasing the dose given the anticipated discharge on Wednesday. After speaking with the patient for no fewer than 20 minutes, I think it is reasonable to keep the dose at the current level. The patient is confident that with the addition of suboxone, he will be able to withstand the cessation of dilaudid. Time in Room: 340 PM Time out of Room: 405 PM Family History: Unchanged from Admission Social History: Unchanged from Admission Past Medical History: Unchanged from Admission Objective Active Medications: . Acetaminophen (Tylenol Tab*) 650 mg PO Q4H PRN PRN Reason: FEVER/PAIN Last Admin: 07/31/16 20:48 Dose: 650 mg Baclofen (Lioresal Tab*) 10 mg PO TID PRN PRN Reason: SPASMS - MUSCLE Benzocaine (Baby Orajel 7.5%*) 1 applic TOPICAL TID PRN PRN Reason: Mouth pain Last Admin: 07/20/16 18:08 Dose: 1 applic Clonidine HCl (Catapres Tab*) 0.1 mg PO TID PRN PRN Reason: WITHDRAWAL - OPIATE Last Admin: 08/02/16 09:14 Dose: 0.1 mg Heparin Sodium (Porcine) (Heparin Flush Picc/Ml/Cvc(*)) 1 - 3 ml FLUSH 0600, 1800 ASHLEY PRN Reason: Protocol Last Admin: 08/02/16 05:43 Dose: 1 ml Linezolid (Zyvox 600 Mg Ivpremix(*)) 600 mg in 300 mls @ 300 mls/hr IVPB Q12H ASHLEY Last Admin: 08/02/16 07:59 Dose: 300 mls/hr Ibuprofen (Motrin Tab*) 400 mg PO Q6H PRN PRN Reason: FEVER/HEADACHE Last Admin: 08/02/16 09:14 Dose: 400 mg Magnesium Hydroxide (Milk Of Magnesia Liq*) 30 ml PO Q6H PRN PRN Reason: CONSTIPATION Last Admin: 07/18/16 13:17 Dose: 30 ml Melatonin (Melatonin (Nf)) 3 mg PO BEDTIME PRN PRN Reason: INSOMNIA Last Admin: 07/24/16 21:25 Dose: 3 mg Nicotine (Nicotine Patch 14 Mg/24 Hr*) 1 patch TRANSDERM Q24HR [facility] Last Admin: 08/02/16 09:50 Dose: Not Given Pharmacy Profile Note (Nicotine Patch Removal Note*) 1 note PATCH OFF 2100 [facility] Last Admin: 08/01/16 21:27 Dose: Not Given Polyethylene Glycol/Electrolytes (Miralax*) 17 gm PO DAILY [facility] Last Admin: 08/02/16 08:06 Dose: Not Given . Vital Signs 08/01/16 08/01/16 08/01/16 18:01 19:22 20:00 Temperature 97.3 F Pulse Rate 90 Respiratory 16 18 Rate Blood Pressure 113/80 (mmHg) O2 Sat by Pulse 100 Oximetry 08/01/16 08/01/16 08/01/16 20:01 22:28 23:55 Temperature 98.9 F Pulse Rate 95 Respiratory 16 16 Rate Blood Pressure 118/62 (mmHg) O2 Sat by Pulse 100 Oximetry 08/02/16 08/02/16 08/02/16 01:55 05:48 07:48 Temperature Pulse Rate Respiratory 14 16 16 Rate Blood Pressure (mmHg) O2 Sat by Pulse Oximetry 08/02/16 08/02/16 08/02/16 08:00 09:27 12:03 Temperature 97.7 F Pulse Rate 118 Respiratory 16 20 16 Rate Blood Pressure 127/83 (mmHg) O2 Sat by Pulse 100 Oximetry Oxygen Devices in Use Now: None Eyes: No Scleral Icterus Ears/Nose/Mouth/Throat: Clear Oropharnyx Respiratory: Symmetrical Chest Expansion and Respiratory Effort Cardiovascular: NL Sounds; No Murmurs; No JVD Extremities: No Edema Skin: No Rash or Ulcers Neurological: Alert and Oriented x 3 Lines/Tubes/Other Access: Clean, Dry and Intact Peripheral IV Nutrition: Taking PO's Result Diagrams: 07/28/16 04:45 07/28/16 04:45 Assess/Plan/Problems-Billing . Assessment: MRSA bacteremia and renal/psoas abscesses in a 25 yo M with hx of IVDA, bipolar disorder, schizophrenia, anxiety. Current Medications: - Acetaminophen (Tylenol Tab) 650 mg PO Q4H PRN FEVER/PAIN - Baclofen (Lioresal Tab) 10 mg PO TID PRN SPASMS - MUSCLE - Benzocaine (Baby Orajel 7.5%) 1 applic TOPICAL TID PRN Mouth pain - Clonidine HCl (Catapres Tab) 0.1 mg PO TID PRN WITHDRAWAL - OPIATE - Hydromorphone HCl (Dilaudid Tab) 4 mg PO Q6H PRN PAIN - Linezolid (Zyvox 600 Mg Ivpremix) 600 mg IVPB Q12H - Ibuprofen (Motrin Tab) 400 mg PO Q6H PRN FEVER/HEADACHE - Magnesium Hydroxide (Milk Of Magnlino Liq) 30 ml PO Q6H PRN CONSTIPATION - Melatonin (Melatonin) 3 mg PO BEDTIME PRN INSOMNIA - Nicotine (Nicotine Patch 14 Mg/24 Hr) 1 patch TRANSDERM Q24HR - Polyethylene Glycol/Electrolytes (Miralax) 17 gm PO DAILY . - Patient Problems (1) Bacteremia due to methicillin resistant Staphylococcus aureus Current Visit: No Status: Acute Code(s): R78.81 - BACTEREMIA Comment: - Renal/psoas abscesses noted. - Continue IV Linezolid. - Day 28 is 08/02. - US both kidneys reviewed from 07/28/2016. - 2 weeks linezolid after dc on 08/03/2016. (2) Back pain Current Visit: No Status: Acute Code(s): M54.9 - DORSALGIA, UNSPECIFIED Comment: - With abdominal pain - Afebrile, leukocytosis - MRI / CT ABD/Pelvis - findings C/W pyelonephritis and bilateral renal abscesses, and multiple bilateral complex cystic renal masses with one extending posteriorly on the left side involving the left psoas muscle (3) Drug-induced mood disorder Current Visit: No Status: Chronic Priority: High Code(s): F19.94 - OTH PSYCHOACTIVE SUBSTANCE USE, UNSP W MOOD DISORDER (4) Polysubstance dependence Current Visit: No Status: Chronic Priority: High Code(s): F19.20 - OTHER PSYCHOACTIVE SUBSTANCE DEPENDENCE, UNCOMPLICATED Comment: heroin bath salts marijuana synthetic marijuana crack On oral hydromorphone 4 mg q 6 hr only -- renewed 08/02/16. nicotine
[2016-08-02] MEDS: Nicotine Patch Removal NOTE PATCH OFF SCH (22:11)
[2016-08-03] MEDS: HYDROmorphone TAB* 4 MG PO PRN ×4 (00:14→18:35)
[2016-08-03] MEDS: Ibuprofen TAB* 400 MG PO PRN ×2 (04:44→17:19)
[2016-08-03] MEDS: cloNIDine TAB* 0.1 MG PO PRN ×3 (04:45→21:58)
[2016-08-03] MEDS: Linezolid TAB* 600 MG PO SCH ×2 (08:41→21:55)
[2016-08-03] MEDS: Nicotine PATCH 14 MG/24 HR* PATCH TRANSDERM SCH (08:43)
[2016-08-03] MEDS: Polyethylene Glycol 3350* 17 GM PACKET PO SCH (08:43)
--- NOTE | 2016-08-03 11:07 | PN ---
Progress Note - Progress Note SOAP: Subjective: DOS: 08/03/16 CC: renal abscess HPI: 25 yo man with MRSA bacteremia and BL renal abscess, left psoas abscess, treated with antibiotics and no drainage. Follow up CT showed stable collections. Feels well, no pain rash, fever, or diarrhea. Objective: [] Vital Signs Temp 36.4 C 08/03/16 07:35 Pulse 48 08/03/16 07:35 Resp 14 08/03/16 08:43 BP 96/42 08/03/16 07:35 Pulse Ox 99 08/03/16 07:35 Intake & Output 08/02/16 08/03/16 08/03/16 18:59 06:59 18:59 Intake Total 1080 320 400 Output Total 0 Balance 1080 320 400 Intake: IV Fluids 300 320 ABX - LINEZOLID 300 300 NS (0.9%) 20 Oral 780 0 400 Output: Urine 0 Other: # Voids 2 Gen:awake, no distress Neuro:Ox3, moves all extremities HEENT:PERRL, MMM Neck:supple Heart:RRR no murmur Lungs:CTA BL Abd:+BS NTND soft Skin: no rash MSK: no spine tenderness to palpation CRP 07/28/16: 15 Assessment: 1. MRSA renal abscess bilateral; CRP and symptoms continue to resolve 2. MRSA left psoas abscess 3. IVDU in brief remission 4. elevated CRP, improving 5. Hepatitis C 6. bipolar disorder Plan: 1. linezolid 600 mg IV Q12hrs day 28 will change to linezolid 600 mg PO BID x14 days. DC midline. Labs CRP ordered for today. FU With me 1-2 weeks.
--- NOTE | 2016-08-03 17:19 | PN ---
Hospitalist Progress Note . HOSPITALIST DISCHARGE NOTE: See dc instructions and summary by me. Patient stable for dc dc instructions reviewed with the patient at the bedside. DC patient to [facility] 08/04/16.
[2016-08-03] MEDS: Nicotine Patch Removal NOTE PATCH OFF SCH (21:56)
[2016-08-04] MEDS: HYDROmorphone TAB* 4 MG PO PRN ×2 (00:30→07:25)
[2016-08-04] MEDS: Polyethylene Glycol 3350* 17 GM PACKET PO SCH (07:22)
[2016-08-04] MEDS: Linezolid TAB* 600 MG PO SCH (07:25)
[2016-08-04] MEDS: Nicotine PATCH 14 MG/24 HR* PATCH TRANSDERM SCH (07:26)
[2016-08-04 08:09] VITALS: BP 133/63
--- NOTE | 2016-08-04 14:59 | DS ---
DISCHARGE SUMMARY: DATE OF ADMISSION TO [facility] STATUS: 07/15/16 - whereas the patient was admitted to inpatient on 07/06/16. DATE OF DISCHARGE FROM [facility]ING STATUS: 08/04/16 DISCHARGE DIAGNOSES: 1. MRSA bacteremia with bilateral renal abscesses and left psoas muscle abscess , status post 28 days of IV linezolid therapy and beginning 14 days of b.i.d. oral linezolid therapy. 2. Intravenous drug abuse as a root cause of MRSA bacteremia and subsequent abscesses. SECONDARY DIAGNOSES: 1. Depression. 2. Anxiety. 3. Schizophrenia. 4. Bipolar disorder. 5. History of polysubstance abuse. DISCHARGE MEDICATION REGIMEN: 1. Linezolid 600 mg by mouth twice daily for 14 days. 2. Tylenol 650 mg by mouth every 4 hours as needed for pain/fever. 3. Holding baclofen 10 mg by mouth 3 times daily as per [facility] protocol. 4. Milk of magnesia 30 mL by mouth every 6 hours p.r.n. pain versus fever. 5. Melatonin 3 mg by mouth at bedtime. 6. Nicotine patch 14 mg, strike daily. 7. Polyethylene glycol 17 g by mouth daily. 8. Clonidine 0.1 mg by mouth 3 times daily. HISTORY OF PRESENT ILLNESS AND HOSPITAL COURSE: Please see the hospital summary by nurse practitioner Piper Weiss on 07/15/16, at which time the patient was transitioned from inpatient status to swing for ongoing IV antibiotics. In brief, Mr. Chopra is a 25-year-old gentleman with a past medical history of psychiatric history detailed above, who came to the emergency room with complaints of 5 weeks of back pain that was acutely worse on July 06. The patient had recently left an inpatient drug rehab program where he was on methadone taper. In the emergency room, the patient was found to have an elevated white blood cell count of 13.1 and a CRP of greater than 200. He underwent an MRI showing mild scoliosis, but no signs of osteomyelitis or diskitis. There was concern for an epidural abscess and underwent a repeat MRI with contrast that showed possible pyelonephritis and the patient was therefore admitted to the hospital. The patient also had an abdomen and pelvic CT scan showing multiple renal abscesses and an abscess in his left psoas muscle. He was started on vancomycin and cefepime. He was seen by Dr. Steve of the infectious disease service. The patient was found to have MRSA bacteremia on blood cultures and was continued on vancomycin. A repeat CT of the abdomen and pelvis on July 10 showed multiple renal abscesses and the left psoas muscle abscess. The patient underwent transthoracic echocardiogram showing no signs of vegetation on his valves. He did not pursue transesophageal echocardiogram as there was low suspicion for endocarditis and also he was going to require prolonged IV antibiotics. [facility] was subsequently [facility] to complete the full course. The decision to switch to oral antibiotic was overseen by Dr. Tristin Steve. The patient did have an interim ultrasound on July 28, which showed no hydronephrosis, but did show hypoechogenic areas in both kidneys likely representing sequelae from prior renal abscesses. The patient again will continue oral linezolid for an additional 14 days and will be followed by Dr. Steve in the outpatient setting. His CRP is downwardly trending at this time. If he worsens in any way , he should come back to the emergency room for further workup. For reference, his CRP on July 28 was 15.45. He is being discharged directly to [facility] on the morning of 08/04/16. TIME SPENT: Total time taken to discharge Mr. Chopra was 45 minutes, greater than half that time spent going over the discharge instructions [id number] with the patient at the point of discharge. CONDITION AT DISCHARGE: Stable. [id number]/[facility] #: [id number] MTDD
== END 2016-08-04 08:25 | disposition swing bed (61) | DRG 248 ==
LOC: MED 15:15
PROVIDERS: ADMIT Hospitalist; ATTEND Internal Medicine
DX: K68.12 Psoas muscle abscess (principal); N15.1 Renal and perinephric abscess; F14.20 Cocaine dependence, uncomplicated; F11.20 Opioid dependence, uncomplicated; F15.20 Other stimulant dependence, uncomplicated; Q61.02 Congenital multiple renal cysts; F32.9 Major depressive disorder, single episode, unspecified; F41.9 Anxiety disorder, unspecified; F20.9 Schizophrenia, unspecified; F17.210 Nicotine dependence, cigarettes, uncomplicated; B19.20 Unspecified viral hepatitis C without hepatic coma; Y90.9 Presence of alcohol in blood, level not specified; B95.62 Methicillin resistant Staphylococcus aureus infection as the cause of diseases classified elsewhere; K59.00 Constipation, unspecified; F11.24 Opioid dependence with opioid-induced mood disorder; F10.10 Alcohol abuse, uncomplicated; F12.20 Cannabis dependence, uncomplicated; M41.9 Scoliosis, unspecified; Z62.29 Other upbringing away from parents; Z56.0 Unemployment, unspecified; Z59.0 Homelessness; Z81.4 Family history of other substance abuse and dependence
CPT/HCPCS: 36415; 76775; 80053; 81003; 81015; 85025; 85027; 86140; A9270-GY; J1170; J2020

== ENCOUNTER → 2016-08-13 11:26 | Emergency (ER) | payer BC ==
[2016-08-13 12:48] LABS: Urine Bilirubin Negative (Negative); Urine Glucose Negative (Negative); Urine Nitrite Negative (Negative)
[2016-08-13 13:00] LABS: Albumin 4.1 g/dL (3.2-5.2); Calcium 9.9 mg/dL (8.6-10.3); EGFR African American 98.4 (>60); EGFR Non-African American 76.5 (>60); Potassium 4.3 mmol/L (3.5-5.0); Total Bilirubin 0.7 mg/dL (0.2-1.0); Total Protein 8.1 g/dL (6.4-8.9)
[2016-08-13 13:10] LABS: Benzodiazepine Urine Screen None Detected (None Detect)
[2016-08-13 14:06] LABS: Hematocrit 33 % (42-52); Hemoglobin 11.3 g/dl (14.0-18.0); Mean Corpuscular HGB Conc 34 g/dl (31-36); Mean Corpuscular Hemoglobin 29 pg (27-31); Mean Corpuscular Volume 86 fL (80-94); Mean Platelet Volume 7 um3 (7.4-10.4); Red Blood Count 3.88 10^6/ul (4.0-5.4); Red Cell Distribution Width 16 % (10.5-15); White Blood Count 4.7 10^3/ul (3.5-10.8)
[2016-08-13 14:07] LABS: Add Diff/Slide Review? Slide Review Added; Comments Flag Yes
[2016-08-13 14:53] LABS: Eosinophils % 1 % (0-6); Neutrophil % 28 % (38-83); RBC Morphology Normal (Normal); Reactive Lymph % 9 % (0-6)
[2016-08-13 15:04] LABS: Acetaminophen < 15 mcg/mL; Alcohol < 10 mg/dL (<10); Salicylate < 2.50 mg/dL (<30)
[2016-08-13 16:40] VITALS: BP 116/56
--- NOTE | 2016-08-14 08:19 | ED ---
Dmitri Parisi Benjamin, scribed for Lenny Zaidi MD on 08/13/16 at 1257 . Altered Mental Status - HPI Summary HPI Summary: 25yo male BIB EMS. Family called due to not being able to wake pt this morning. Per pt, pt has been having weird dreams lately, and this morning pt woke up and took suboxone, but put him back to sleep. Then pt started having another bad dream, and felt like he was doing drugs and possessed in his dream. Pt states that he was awake, but couldnt move to get up. Pt has hx of heroin abuse, MRSA, staph infection and a recent hx of kidney abscess, which pt was admitted for 1 month and is current taking oral abx for. - History Of Current Complaint Chief Complaint: EDAltMentalStatus Stated Complaint: UNRESPONSIVE Time Seen by Provider: 08/13/16 11:32 Hx Obtained From: Patient Onset/Duration: Resolved Timing: Intermittent, Lasting Hours Severity Initially: Mild Severity Currently: Mild Aggravating Factor(s): Nothing Alleviating Factor(s): Nothing Associated Signs And Symptoms: Positive: Negative - Allergies/Home Medications Allergies/Adverse Reactions: Allergies Allergy/AdvReac Type Severity Reaction Status Date / Time No Known Allergies Allergy Verified 08/13/16 11:28 PMH/Surg Hx/FS Hx/Imm Hx Endocrine/Hematology History: Denies: Hx Anticoagulant Therapy, Hx Diabetes Cardiovascular History: Denies: Hx Hypertension, Hx Pacemaker/ICD Respiratory History: Reports: Hx Asthma - No treatment for "years" Sensory History: Denies: Hx Contacts or Glasses, Hx Hearing Aid Opthamlomology History: Denies: Hx Contacts or Glasses Psychiatric History: Reports: Hx Anxiety, Hx Attention Deficit Hyperactivity Disorder, Hx Depression, Hx Post Traumatic Stress Disorder, Hx Inpatient Treatment, Hx Community Mental Health Tx, Hx Schizophrenia, Hx Bipolar Disorder , Hx Suicide Attempt, Hx of Violent Episodes Against Others, Hx Substance Abuse , Other Psychiatric Issues/Disorders - ODD Denies: Hx Eating Disorder, Hx Panic Disorder - Immunization History Date of Tetanus Vaccine: unable to obtain Date of Influenza Vaccine: unable to obtain Infectious Disease History: Yes Infectious Disease History: Denies: Traveled Outside the [place] in Last 30 Days - Family History Known Family History: Positive: Unknown - adopted - Social History Occupation: Unemployed Lives: With Family Alcohol Use: Rare Alcohol Amount: drinks a couple of times per month Hx Substance Use: Yes Substance Use Type: Reports: Heroin Substance Use Comment - Amount & Last Used: $20/day IV heroin. Pt states that he has been clean for unspecific time Hx Tobacco Use: Yes Smoking Status (MU): Light Every Day Tobacco Smoker Type: Cigarettes Amount Used/How Often: 7/ day Length of Time of Smoking/Using Tobacco: 1/2 ppd X 6 years Review of Systems Constitutional: Negative Eyes: Negative ENT: Negative Cardiovascular: Negative Respiratory: Negative Gastrointestinal: Negative Genitourinary: Negative Musculoskeletal: Negative Skin: Negative Neurological: Other - confused dreams Psychological: Normal All Other Systems Reviewed And Are Negative: Yes Physical Exam Triage Information Reviewed: Yes Vital Signs On Initial Exam: Initial Vitals Temp 98.0 F 08/13/16 11:29 Vital Signs Reviewed: Yes Appearance: Positive: Well-Appearing, No Pain Distress, Well-Nourished Skin: Positive: Warm, Skin Color Reflects Adequate Perfusion, Dry Head/Face: Positive: Normal Head/Face Inspection Eyes: Positive: Normal ENT: Positive: Normal ENT inspection Neck: Positive: Supple, Nontender Respiratory/Lung Sounds: Positive: Clear to Auscultation, Breath Sounds Present Cardiovascular: Positive: RRR Abdomen Description: Positive: Nontender, Soft Bowel Sounds: Positive: Present Musculoskeletal: Positive: Normal Neurological: Positive: Normal Psychiatric: Positive: Affect/Mood Appropriate - [place] Coma Scale Coma Scale Total: 15 Diagnostics - Vital Signs Vital Signs Temp Pulse Resp BP Pulse Ox 08/13/16 11:30 98.0 F 58 14 134/76 98 08/13/16 11:29 98.0 F - Laboratory Lab Results: Lab Results 08/13/16 Range/Units 12:30 Urine Color Yellow Urine Appearance Clear Urine pH 7.0 (5-9) Ur Specific [place] 1.012 (1.010-1.030) Urine Protein Negative (Negative) Urine Ketones Negative (Negative) Urine Blood Negative (Negative) Urine Nitrate Negative (Negative) Urine Bilirubin Negative (Negative) Urine Urobilinogen Negative (Negative) Ur Leukocyte Esterase Negative (Negative) Urine Glucose Negative (Negative) Result Diagrams: 08/13/16 13:55 08/13/16 12:30 Lab Statement: Any lab studies that have been ordered have been reviewed, and results considered in the medical decision making process. Altered Mental Statu Course/Dx - Course Course Of Treatment: Mr. Robles was stable and alert here in the ED and we watched him for several hours and checked labs. Nothing was found. - Diagnoses Discharge Diagnoses: Malaise and fatigue Discharge - Discharge Plan Condition: Stable Disposition: HOME Patient Education Materials: Weakness (ED), Fatigue (ED) Referrals: Priti West [Primary Care Provider] - The documentation as recorded by the Dmitri coleman Benjamin accurately reflects the service I personally performed and the decisions made by me, Lenny Zaidi MD.
== END | disposition home or self-care (01) ==
LOC: ED 11:26
DX: R53.81 Other malaise (principal); R53.83 Other fatigue; J45.909 Unspecified asthma, uncomplicated; F41.9 Anxiety disorder, unspecified; F32.9 Major depressive disorder, single episode, unspecified; F11.10 Opioid abuse, uncomplicated; F17.210 Nicotine dependence, cigarettes, uncomplicated
CPT/HCPCS: 36415; 80053; 80307; 80320; 80329; 81003; 83605; 85025; 99284; G0480